=== PATIENT | male | born 1965 | race Hispanic/Latino ===

== ENCOUNTER 2020-07-27 22:29 | Inpatient (IN) | payer OTHER ==
[~2020-07-27] VITALS: Ht 182.9 cm; Wt 112.2 kg
[2020-07-27] MEDS ORDERED: ONDANSETRON HCL 4 MG/2 ML VIAL ONE (22:52)
[2020-07-27 23:07] LABS: BASOPHILS % (AUTO) 0.3 % (0.0-5.0); EOSINOPHILS % (AUTO) 0.2 % (0.0-8.0); HEMATOCRIT 45.3 % (42-54); LYMPHOCYTES % (AUTO) 11.4 % (21.0-51.0); MEAN CORPUSCULAR HEMOGLOBIN 30.9 pg (27.0-33.0); MEAN CORPUSCULAR HGB CONC 35.3 g/dL (32.0-36.0); MEAN CORPUSCULAR VOLUME 87.6 fL (79-99); MONOCYTES % (AUTO) 10.6 % (3.0-13.0); NEUTROPHILS % (AUTO) 77.2 % (40.0-77.0); PLATELET COUNT (AUTO) 335 K/uL (130-400); RED BLOOD CELL COUNT(AUTO) 5.17 MIL/uL (4.50-6.20); RED CELL DISTRIBUTION WIDTH 12.1 % (11.0-15.5); WHITE BLOOD COUNT (AUTO) 17.4 K/uL (4.8-10.8)
[2020-07-27 23:12] LABS: APPEARANCE,URINE Clear (CLEAR); BILIRUBIN,URINE Negative (NEGATIVE); COLOR,URINE Yellow (YELLOW); GLUCOSE, URINE (UA) >=1000 mg/dL (NEGATIVE); KETONES,URINE Negative (NEGATIVE); LEUKOCYTE ESTERASE ,URINE Negative (NEGATIVE); NITRATE,URINE Negative (NEGATIVE); OCCULT BLOOD,URINE Negative (NEGATIVE); PH,URINE 6.5 (5.0-8.0); PROTEIN,URINE POS 1+ mg/dL (NEGATIVE)
[2020-07-27 23:18] LABS: BACTERIA,URINE None Seen /HPF (None Seen); RBC,URINE None Seen /HPF (0-1); SQUAMOUS EPITHELIAL CELL,UR Rare /HPF (0-2); WBC,URINE None Seen /HPF (0-1); YEAST,URINE BUDDING None Seen /HPF (None Seen)
[2020-07-27 23:21] LABS: CREATININE 0.8 mg/dL (0.5-1.5); POTASSIUM 4.1 mmol/L (3.5-5.1)
[2020-07-27 23:25] LABS: ALBUMIN 3.7 g/dL (3.5-5.0); BILIRUBIN,TOTAL 1.5 mg/dL (0.2-1.0); TOTAL PROTEIN, SERUM 7.8 g/dL (6.0-8.3)
[2020-07-27] MEDS ORDERED: FENTANYL CITRATE PF 50 MCG/1 ML 2ML VIAL ONE (23:27)
[2020-07-28] MEDS ORDERED: LEVETIRACETAM 500 MG/5 ML SD VIAL IV ONE (02:11)
[2020-07-28] MEDS ORDERED: LACTULOSE 20 GM/30 ML UDCUP PO PRN (02:30)
[2020-07-28] MEDS ORDERED: ONDANSETRON HCL 4 MG/2 ML VIAL IV PRN (02:30)
[2020-07-28] MEDS ORDERED: ACETAMINOPHEN 325 MG TAB PO PRN (02:30)
[2020-07-28] MEDS ORDERED: HYDRALAZINE HCL 20 MG/ML VIAL IV PRN (02:30)
[2020-07-28] MEDS ORDERED: ACETAMINOPHEN 325 MG TAB ONE (02:42)
[2020-07-28 03:05] LABS: HEMOGLOBIN A1C 7.9 % (4.0-6.0)
[2020-07-28 03:13] LABS: THYROID STIMULATING HORMONE 1.43 uIU/mL (0.36-3.74)
[2020-07-28 07:39] LABS: BASOPHILS % (AUTO) 0.3 % (0.0-5.0); EOSINOPHILS % (AUTO) 0.3 % (0.0-8.0); HEMATOCRIT 43.5 % (42-54); MEAN CORPUSCULAR HEMOGLOBIN 30.5 pg (27.0-33.0); MEAN CORPUSCULAR VOLUME 89.7 fL (79-99); MONOCYTES % (AUTO) 11.1 % (3.0-13.0); NEUTROPHILS % (AUTO) 74.8 % (40.0-77.0); PLATELET COUNT (AUTO) 287 K/uL (130-400); RED BLOOD CELL COUNT(AUTO) 4.85 MIL/uL (4.50-6.20); RED CELL DISTRIBUTION WIDTH 12.4 % (11.0-15.5); WHITE BLOOD COUNT (AUTO) 14.7 K/uL (4.8-10.8)
[2020-07-28 08:15] LABS: ALBUMIN 3.3 g/dL (3.5-5.0); BILIRUBIN,TOTAL 1.8 mg/dL (0.2-1.0); CREATININE 0.8 mg/dL (0.5-1.5); POTASSIUM 4.2 mmol/L (3.5-5.1); TOTAL PROTEIN, SERUM 6.5 g/dL (6.0-8.3)
[2020-07-28 08:33] VITALS: BP 147/89
[2020-07-28] MEDS ORDERED: ENOXAPARIN SODIUM 40 MG/0.4 ML SYRINGE SQ SCH (09:00)
[2020-07-28] MEDS: METOPROLOL TARTRATE 25 MG TAB PO SCH ×2 (11:02→20:27)
[2020-07-28] MEDS: ASPIRIN 81MG TAB.CHEW PO SCH (11:03)
[2020-07-28] MEDS: FAMOTIDINE/PF 20 MG/2 ML VIAL IV SCH ×2 (11:03→20:26)
[2020-07-28 11:38] VITALS: BP 142/84
[2020-07-28] MEDS: INSULIN HUMULIN R 100 UNIT/ML 3ML SQ SCH ×3 (12:00→20:37)
[2020-07-28 12:47] LABS: AMPHET/METH SCREEN,URINE NEGATIVE (NEGATIVE); BARBITURATE SCREEN, URINE NEGATIVE (NEGATIVE); BENZODIAZEPINES SCREEN,URINE NEGATIVE (NEGATIVE); CANNABINOID SCREEN,URINE NEGATIVE (NEGATIVE); COCAINE SCREEN,URINE NEGATIVE (NEGATIVE); OPIATE SCREEN,URINE NEGATIVE (NEGATIVE); PHENCYCLIDINE SCREEN,URINE NEGATIVE (NEGATIVE)
[2020-07-28] MEDS ORDERED: METRONIDAZOLE 500MG/100ML BAG 100 ML ONE (12:50)
[2020-07-28] MEDS: LEVOFLOXACIN 500 MG/D5W 100 ML 100 ML IV SCH (12:52)
[2020-07-28] MEDS: METRONIDAZOLE 500MG/100ML BAG 100 ML IVPB SCH ×2 (12:52→22:14)
[2020-07-28] MEDS ORDERED: VITAD50000 PO (14:37)
[2020-07-28] MEDS ORDERED: METF-444 PO (14:37)
[2020-07-28] MEDS ORDERED: AEC81 PO (14:37)
[2020-07-28] MEDS ORDERED: ROSU10TA28 PO (14:37)
[2020-07-28] MEDS ORDERED: LISI10TA7 PO (14:37)
[2020-07-28] MEDS ORDERED: INSU3INS3 SQ (14:37)
[2020-07-28] MEDS ORDERED: UBID100C10 PO (14:37)
[2020-07-28 16:00] VITALS: BP 129/81
[2020-07-28 20:00] VITALS: BP 131/82
[2020-07-28] MEDS: ATORVASTATIN CALCIUM 20 MG TABLET PO SCH (20:26)
[2020-07-28] MEDS: HEPARIN SODIUM 5000UNIT/ML 1ML VIAL SQ SCH (20:31)
[2020-07-28] MEDS: ACETAMINOPHEN 325 MG TAB PO PRN (20:33)
[2020-07-28] MEDS: SODIUM CHLORIDE 0.9% 1000ML 1,000 ML IV SCH (22:15)
[2020-07-28 23:54] VITALS: BP 122/72
[2020-07-29] VITALS (7 sets, daily range): BP systolic 112–137; BP diastolic 75–85
[2020-07-29] MEDS: LEVOFLOXACIN 500 MG/D5W 100 ML 100 ML IV SCH (02:11)
[2020-07-29] MEDS: METRONIDAZOLE 500MG/100ML BAG 100 ML IVPB SCH ×3 (05:29→21:40)
[2020-07-29 05:59] LABS: BASOPHILS % (AUTO) 0.6 % (0.0-5.0); EOSINOPHILS % (AUTO) 1.8 % (0.0-8.0); HEMATOCRIT 43.2 % (42-54); LYMPHOCYTES % (AUTO) 16.1 % (21.0-51.0); MEAN CORPUSCULAR HEMOGLOBIN 30.7 pg (27.0-33.0); MEAN CORPUSCULAR HGB CONC 33.8 g/dL (32.0-36.0); MEAN CORPUSCULAR VOLUME 90.8 fL (79-99); MONOCYTES % (AUTO) 10.9 % (3.0-13.0); PLATELET COUNT (AUTO) 289 K/uL (130-400); RED BLOOD CELL COUNT(AUTO) 4.76 MIL/uL (4.50-6.20); WHITE BLOOD COUNT (AUTO) 10.9 K/uL (4.8-10.8)
[2020-07-29 06:17] LABS: CREATININE 0.9 mg/dL (0.5-1.5)
[2020-07-29] MEDS: INSULIN HUMULIN R 100 UNIT/ML 3ML SQ SCH ×4 (06:28→20:54)
--- NOTE | 2020-07-29 09:01 | NUR ---
6 MINUTE AMBULATION GAIT STEADY AND STRONG WITH STAND BY ASSIST, PT DENIES PAIN, SOB, NAUSEA, DYSPNEA ON EXERTION, TOLERATING WELL, (SEE VITAL SIGNS) CALL LIGHT WITHIN REACH.
[2020-07-29 09:19] LABS: ALBUMIN 2.8 g/dL (3.5-5.0); BILIRUBIN,DIRECT 0.4 mg/dL (0.0-0.3); BILIRUBIN,TOTAL 1.3 mg/dL (0.2-1.0); TOTAL PROTEIN, SERUM 6.8 g/dL (6.0-8.3); TROPONIN I 0.07 ng/mL (0.00-0.06)
[2020-07-29] MEDS: METOPROLOL TARTRATE 25 MG TAB PO SCH ×2 (09:37→20:41)
[2020-07-29] MEDS: FAMOTIDINE/PF 20 MG/2 ML VIAL IV SCH ×2 (09:37→20:41)
[2020-07-29] MEDS: ASPIRIN 81MG TAB.CHEW PO SCH (09:37)
[2020-07-29] MEDS: HEPARIN SODIUM 5000UNIT/ML 1ML VIAL SQ SCH ×2 (09:57→20:41)
[2020-07-29] MEDS: SODIUM CHLORIDE 0.9% 1000ML 1,000 ML IV SCH ×2 (12:46→20:42)
[2020-07-29] MEDS: ATORVASTATIN CALCIUM 20 MG TABLET PO SCH (20:41)
[2020-07-29] MEDS: ACETAMINOPHEN 325 MG TAB PO PRN (21:51)
[2020-07-30] VITALS (24 sets, daily range): BP systolic 127–163; BP diastolic 74–91
[2020-07-30] MEDS: LEVOFLOXACIN 500 MG/D5W 100 ML 100 ML IV SCH (02:51)
[2020-07-30] MEDS: SODIUM CHLORIDE 0.9% 1000ML 1,000 ML IV SCH ×2 (03:36→11:14)
[2020-07-30] MEDS: METRONIDAZOLE 500MG/100ML BAG 100 ML IVPB SCH ×3 (05:21→21:44)
[2020-07-30] MEDS: INSULIN HUMULIN R 100 UNIT/ML 3ML SQ SCH ×4 (07:01→21:53)
[2020-07-30] MEDS: HEPARIN SODIUM 5000UNIT/ML 1ML VIAL SQ SCH ×2 (07:46→21:53)
[2020-07-30] MEDS: METOPROLOL TARTRATE 25 MG TAB PO SCH ×2 (10:44→20:49)
[2020-07-30] MEDS: FAMOTIDINE/PF 20 MG/2 ML VIAL IV SCH ×2 (10:44→20:49)
[2020-07-30] MEDS ORDERED: ONDANSETRON HCL 4 MG/2 ML VIAL ONE ×3 (11:25→13:09)
[2020-07-30] MEDS ORDERED: PROPOFOL 10 MG/ML 20ML VIAL IV ONE ×2 (11:25→11:55)
[2020-07-30] MEDS ORDERED: LIDOCAINE PF 2% 5ML ABBOJECT ONE (11:25)
[2020-07-30] MEDS ORDERED: ROCURONIUM 10MG/1ML SYR 10 MG/ML ML ONE (11:25)
[2020-07-30] MEDS ORDERED: SUCCINYLCHOLINE CHLORIDE 20 MG/ML 10 ML VIAL ONE (11:25)
[2020-07-30] MEDS ORDERED: MIDAZOLAM HCL 1 MG/ML 2ML VIAL ONE (11:25)
[2020-07-30] MEDS ORDERED: FENTANYL CITRATE PF 50 MCG/1 ML 5ML AMP IV ONE (11:41)
[2020-07-30] MEDS ORDERED: BUPIVACAINE/PF 0.5% 30ML VIAL ONE (11:52)
[2020-07-30] MEDS ORDERED: GLYCOPYRROLATE 1 MG/5 ML SYRINGE ONE (12:08)
[2020-07-30] MEDS ORDERED: NEOSTIGMINE 5MG/5ML SYR IV ONE (12:08)
[2020-07-30] MEDS ORDERED: MEPERIDINE-PF 25 MG/ML SYG ONE ×2 (12:38→12:48)
[2020-07-30] MEDS: ASPIRIN 81MG TAB.CHEW PO SCH (13:54)
[2020-07-30] MEDS: ACETAMINOPHEN 325 MG TAB PO PRN ×2 (13:59→21:44)
[2020-07-30] MEDS: MORPHINE SULFATE 2 MG/ML 1ML SYG IV PRN (14:00)
[2020-07-30] MEDS: ATORVASTATIN CALCIUM 20 MG TABLET PO SCH (20:49)
[2020-07-31] MEDS: SODIUM CHLORIDE 0.9% 1000ML 1,000 ML IV SCH ×2 (00:30→10:30)
--- NOTE | 2020-07-31 02:56 | NUR ---
PATIENT A/OX3. C/O MILD PAIN TO LAP SITES. PATIENT SAYS HE IS PASSING GAS, NO BM. BOWEL SOUNDS HYPOACTIVE. TOLERATING CLEARS. DENIES N/V/D TODAY. WILL ADVANCE DIET TOLERATED.
[2020-07-31] MEDS: LEVOFLOXACIN 500 MG/D5W 100 ML 100 ML IV SCH (03:19)
[2020-07-31 03:51] VITALS: BP 126/72
[2020-07-31] MEDS: ACETAMINOPHEN 325 MG TAB PO PRN (04:13)
[2020-07-31 05:32] LABS: BASOPHILS % (AUTO) 0.2 % (0.0-5.0); EOSINOPHILS % (AUTO) 0.3 % (0.0-8.0); LYMPHOCYTES % (AUTO) 9.3 % (21.0-51.0); MEAN CORPUSCULAR HEMOGLOBIN 30.3 pg (27.0-33.0); MEAN CORPUSCULAR HGB CONC 33.9 g/dL (32.0-36.0); MEAN CORPUSCULAR VOLUME 89.5 fL (79-99); MONOCYTES % (AUTO) 6.9 % (3.0-13.0); NEUTROPHILS % (AUTO) 82.8 % (40.0-77.0); PLATELET COUNT (AUTO) 329 K/uL (130-400); RED BLOOD CELL COUNT(AUTO) 4.58 MIL/uL (4.50-6.20); RED CELL DISTRIBUTION WIDTH 11.9 % (11.0-15.5); WHITE BLOOD COUNT (AUTO) 12.8 K/uL (4.8-10.8)
[2020-07-31 06:07] LABS: ALBUMIN 2.7 g/dL (3.5-5.0); CREATININE 0.9 mg/dL (0.5-1.5); POTASSIUM 3.8 mmol/L (3.5-5.1); TOTAL PROTEIN, SERUM 6.6 g/dL (6.0-8.3)
[2020-07-31] MEDS: INSULIN HUMULIN R 100 UNIT/ML 3ML SQ SCH ×3 (06:10→16:08)
[2020-07-31] MEDS: METRONIDAZOLE 500MG/100ML BAG 100 ML IVPB SCH ×2 (06:23→13:26)
[2020-07-31] MEDS: FAMOTIDINE/PF 20 MG/2 ML VIAL IV SCH (07:34)
[2020-07-31] MEDS: ASPIRIN 81MG TAB.CHEW PO SCH (07:34)
[2020-07-31] MEDS: METOPROLOL TARTRATE 25 MG TAB PO SCH (07:34)
[2020-07-31] MEDS: HEPARIN SODIUM 5000UNIT/ML 1ML VIAL SQ SCH (07:36)
--- NOTE | 2020-07-31 08:00 | NUR ---
ASSESSMENT PT IS AAOX3 DENIES CP DENIES SOB DENIES NV. NO COMPLAINTS AT THIS TIME. SITTING UPRIGHT IN BED. STATES PASSING GAS, NO BM YET. NOTED LAP ALEJA SITES X4 ON ABD, ALL COVERED WITH BANDAIDS, ALL SITES CLEAN DRY AND INTACT CALL LIGHT WITHIN REACH.
[2020-07-31 08:30] VITALS: BP 136/79
[2020-07-31] MEDS ORDERED: LEVO750T46 PO (10:51)
[2020-07-31] MEDS ORDERED: METR-172 PO (10:51)
[2020-07-31 12:10] VITALS: BP 143/77
--- NOTE | 2020-07-31 16:00 | NUR ---
Brennon ALICIA PA-C ROUNDED OK TO DC HOME TODAY, RENEA RICHARDS AWARE, DC ORDERS RECEIVED.
[2020-07-31] MEDS: MORPHINE SULFATE 2 MG/ML 1ML SYG IV PRN (16:06)
[2020-07-31 16:30] VITALS: BP 145/85
--- NOTE | 2020-07-31 17:40 | NUR ---
DISCHARGE PT VERBALIZES ALL DC INSTRUCTIONS UNDERSTANDING. AGREES TO FOLLOW UP WITH DOCTORS ORDERED, AGREES TO TAKE MEDICATIONS PRESCRIBED. ALL QUESTIONS ANSWERED. PIV REMOVED CATH TIP INTACT, TELE PACK REMOVED. ALL BELONGINGS GATHERED. AWAITING RIDE.
--- NOTE | 2020-08-01 16:36 | NUR ---
Transitional Care - Post Discharge Note Spoke with patient at number listed. As per Mr Aleman, he is doing well. He states he has yet to follow up with his PCP or make appointments because he was "just trying to recover today before making any phone calls". He has assured me that he will call tomorrow to make appointments with PCP and Dr Almanza. Mr Aleman states that he is taking his discharge medications as prescribed. Nursing education on diet post cholecystectomy provided, as well as medication compliance. He affirms that he will "stick to low fat foods and keep taking the medications as ordered." Addendum: 08/01/20 at 1643 by JUANA PACHECO Amended: Links added.
== END 2020-07-31 17:55 | disposition home or self-care (01) | DRG 418 ==
LOC: EDH 22:29 → EDHIP 07-28 02:26 → 4DH 07-28 07:59
PROVIDERS: ADMIT Family Medicine; ATTEND Family Medicine
PROC: 0FT44ZZ Resection of Gallbladder, Percutaneous Endoscopic Approach (ICD-10-PCS; principal; 2020-07-30 11:27)
DX: K80.00 Calculus of gallbladder with acute cholecystitis without obstruction (principal); I24.9 Acute ischemic heart disease, unspecified; E11.9 Type 2 diabetes mellitus without complications; E78.5 Hyperlipidemia, unspecified; I10 Essential (primary) hypertension; K82.8 Other specified diseases of gallbladder; R74.8 Abnormal levels of other serum enzymes; R77.8 Other specified abnormalities of plasma proteins; R94.31 Abnormal electrocardiogram [ECG] [EKG]; Z88.0 Allergy status to penicillin
CPT/HCPCS: 36415; 74176; 74181; 76705; 80048; 80053; 80061; 80076; 80305; 81001; 82550; 82948; 83036; 83690; 83874; 84443; 84484; 85025; 93005; 93306; G0378; J0330; J1644; J1815; J1953; J1956; J2001; J2175; J2250; J2405; J2704; J2710; J3010; J3490; J7030

== ENCOUNTER 2020-08-15 18:29 | Inpatient (IN) | payer OTHER ==
[~2020-08-15] VITALS: Ht 182.9 cm; Wt 118.2 kg
[~2020-08-15 18:29] MED LIST: AEC81 PO; INSU3INS3 SQ; LEVO750T46 PO; LISI10TA24 PO; METF-444 PO; METR-172 PO; ROSU10TA28 PO; UBID100C10 PO; VITAD50000 PO
[2020-08-15] MEDS ORDERED: MORPHINE 2 MG SYG ONE (20:09)
[2020-08-15] MEDS ORDERED: 0.9%NACL 1000ML 1,000 ML IV ONE (20:09)
[2020-08-15] MEDS ORDERED: ONDANSETRON 4MG INJ ONE (20:09)
[2020-08-15] MEDS ORDERED: ACETAMINOPHEN 325 MG TAB PO PRN ×2 (20:15)
[2020-08-15] MEDS ORDERED: LACTULOSE 20 GM/30 ML UDCUP PO PRN (20:15)
[2020-08-15 20:20] VITALS: BP 166/89
[2020-08-15 20:54] LABS: BASOPHILS % (AUTO) 0.1 % (0.0-5.0); HEMATOCRIT 47.7 % (42-54); LYMPHOCYTES % (AUTO) 3.3 % (21.0-51.0); MEAN CORPUSCULAR HEMOGLOBIN 30.3 pg (27.0-33.0); MEAN CORPUSCULAR HGB CONC 33.8 g/dL (32.0-36.0); MEAN CORPUSCULAR VOLUME 89.8 fL (79-99); MONOCYTES % (AUTO) 5.4 % (3.0-13.0); NEUTROPHILS % (AUTO) 90.6 % (40.0-77.0); PLATELET COUNT (AUTO) 615 K/uL (130-400); RED BLOOD CELL COUNT(AUTO) 5.31 MIL/uL (4.50-6.20); RED CELL DISTRIBUTION WIDTH 12.3 % (11.0-15.5); WHITE BLOOD COUNT (AUTO) 19.1 K/uL (4.8-10.8)
[2020-08-15 21:11] LABS: CREATININE 1.2 mg/dL (0.5-1.5); POTASSIUM 4.5 mmol/L (3.5-5.1)
[2020-08-15 21:12] LABS: INR 0.99 (0.85-1.15); PARTIAL THROMBOPLASTIN TIME 25.2 SEC (26.3-35.5); PROTHROMBIN TIME 10.7 SEC (9.6-11.6)
[2020-08-15 21:20] LABS: ALBUMIN 3.3 g/dL (3.5-5.0); BILIRUBIN,TOTAL 2.2 mg/dL (0.2-1.0); TOTAL PROTEIN, SERUM 7.4 g/dL (6.0-8.3)
[2020-08-15] MEDS ORDERED: GLUCAGON 1MG KIT 1 MG ML IM PRN (22:15)
[2020-08-15] MEDS ORDERED: DEXTROSE 50%-WATER 50 ML DISP.SYRIN IV PRN (22:15)
[2020-08-15] MEDS: LEVOFLOXACIN 500 MG/D5W 100 ML 100 ML IV SCH (22:15)
[2020-08-15] MEDS: FAMOTIDINE 20MG VIAL IV SCH (22:20)
[2020-08-15] MEDS: 0.9%NACL 1000ML 1,000 ML IV SCH ×2 (22:20→23:46)
[2020-08-15] MEDS ORDERED: 0.9%NACL 1000ML 1,000 ML IV STA ×2 (22:26→23:00)
[2020-08-15] MEDS ORDERED: LEVOFLOXACIN 500 MG/D5W 100 ML 100 ML ONE (22:32)
[2020-08-15 23:25] VITALS: BP 153/86
[2020-08-16] MEDS: MORPHINE 2 MG SYG IV PRN ×4 (00:05→22:26)
[2020-08-16] MEDS: INSULIN HUMULIN R 100 UNIT/ML 3ML SQ SCH ×4 (01:59→17:03)
[2020-08-16 03:59] VITALS: BP 167/92
[2020-08-16] MEDS ORDERED: HYDROMORPHONE 0.5 MG SYG (0.5MG/0.5ML) IVP ONE (04:15)
[2020-08-16 04:45] LABS: BASOPHILS % (AUTO) 0.2 % (0.0-5.0); EOSINOPHILS % (AUTO) 0.3 % (0.0-8.0); HEMATOCRIT 48.5 % (42-54); LYMPHOCYTES % (AUTO) 4.4 % (21.0-51.0); MEAN CORPUSCULAR HEMOGLOBIN 29.9 pg (27.0-33.0); MEAN CORPUSCULAR HGB CONC 33.4 g/dL (32.0-36.0); MEAN CORPUSCULAR VOLUME 89.5 fL (79-99); MONOCYTES % (AUTO) 6.5 % (3.0-13.0); NEUTROPHILS % (AUTO) 88.2 % (40.0-77.0); PLATELET COUNT (AUTO) 615 K/uL (130-400); RED BLOOD CELL COUNT(AUTO) 5.42 MIL/uL (4.50-6.20); RED CELL DISTRIBUTION WIDTH 12.5 % (11.0-15.5); WHITE BLOOD COUNT (AUTO) 20.5 K/uL (4.8-10.8)
[2020-08-16 04:59] LABS: POTASSIUM 4.7 mmol/L (3.5-5.1)
[2020-08-16] MEDS ORDERED: VANCOMYCIN PROTOCOL PER PHARMACY IV SCH (05:15)
[2020-08-16] MEDS ORDERED: HYDROMORPHONE 0.5 MG SYG (0.5MG/0.5ML) ONE (05:18)
[2020-08-16] MEDS: ONDANSETRON 4MG INJ IV PRN ×2 (05:22→22:21)
[2020-08-16] MEDS ORDERED: VANCOMYCIN 1G 2 GM in 0.9% NACL 500ML IV.SOLN 500 ML IV SCH (06:30)
[2020-08-16] MEDS ORDERED: VANCOMYCIN 1G/250ML KIT 500 ML IV ONE (06:53)
[2020-08-16 08:00] VITALS: BP 151/94
[2020-08-16] MEDS: ENOXAPARIN SODIUM 40 MG/0.4 ML SYRINGE SQ SCH (08:26)
[2020-08-16] MEDS: METRONIDAZOLE 500MG/100ML BAG 100 ML IVPB SCH ×3 (08:26→21:37)
[2020-08-16] MEDS: FAMOTIDINE 20MG VIAL IV SCH ×2 (08:26→21:37)
[2020-08-16] MEDS: 0.9%NACL 1000ML 1,000 ML IV SCH (10:44)
[2020-08-16 11:50] VITALS: BP 154/95
[2020-08-16] MEDS: LACTATED RINGERS 1000ML 1,000 ML IV SCH (12:27)
[2020-08-16] MEDS ORDERED: COMPOUND IV MISC 1 EACH IVSOLN MISC PRN (12:30)
[2020-08-16] MEDS: AZTREONAM 1 GM VIAL IVP SCH ×2 (14:39→21:37)
[2020-08-16] MEDS ORDERED: IOHEXOL 350 MG/ML 100ML INFUS..BTL IV ONE (16:50)
[2020-08-16 16:54] VITALS: BP 133/91
[2020-08-16] MEDS ORDERED: COMPOUND IV REFRIGERATED 1 EACH MISC ONE (18:09)
[2020-08-16] MEDS: VANCOMYCIN 1G 1.5 GM in 0.9% NACL 250ML 250 ML IV SCH (18:11)
[2020-08-16 20:00] VITALS: BP 139/89
[2020-08-16] MEDS ORDERED: INSULIN GLARGINE 100 UNITS/ML 10 ML VIAL SQ SCH (21:00)
[2020-08-16] MEDS: LEVOFLOXACIN 500 MG/D5W 100 ML 100 ML IV SCH (23:21)
[2020-08-17] VITALS (21 sets, daily range): BP systolic 117–138; BP diastolic 61–92
[2020-08-17] MEDS: INSULIN HUMULIN R 100 UNIT/ML 3ML SQ SCH ×4 (00:03→18:00)
[2020-08-17] MEDS ORDERED: LORAZEPAM 2 MG/ML 1 ML VIAL ONE (00:50)
[2020-08-17] MEDS ORDERED: LORAZEPAM 2 MG/ML 1 ML VIAL IVP ONE (01:00)
[2020-08-17 04:41] LABS: BASOPHILS % (AUTO) 0.3 % (0.0-5.0); EOSINOPHILS % (AUTO) 1.2 % (0.0-8.0); HEMATOCRIT 46.6 % (42-54); LYMPHOCYTES % (AUTO) 4.3 % (21.0-51.0); MEAN CORPUSCULAR HEMOGLOBIN 30.1 pg (27.0-33.0); MEAN CORPUSCULAR HGB CONC 33.7 g/dL (32.0-36.0); MEAN CORPUSCULAR VOLUME 89.3 fL (79-99); MONOCYTES % (AUTO) 5.5 % (3.0-13.0); NEUTROPHILS % (AUTO) 87.7 % (40.0-77.0); PLATELET COUNT (AUTO) 524 K/uL (130-400); RED BLOOD CELL COUNT(AUTO) 5.22 MIL/uL (4.50-6.20); RED CELL DISTRIBUTION WIDTH 13.2 % (11.0-15.5); WHITE BLOOD COUNT (AUTO) 23.3 K/uL (4.8-10.8)
[2020-08-17] MEDS: LACTATED RINGERS 1000ML 1,000 ML IV SCH ×5 (04:47→22:46)
[2020-08-17 05:05] LABS: ALBUMIN 2.4 g/dL (3.5-5.0); CREATININE 0.9 mg/dL (0.5-1.5); POTASSIUM 3.5 mmol/L (3.5-5.1); TOTAL PROTEIN, SERUM 6.4 g/dL (6.0-8.3)
[2020-08-17] MEDS: AZTREONAM 1 GM VIAL IVP SCH ×3 (05:47→22:08)
[2020-08-17] MEDS: VANCOMYCIN 1G 1.5 GM in 0.9% NACL 250ML 250 ML IV SCH ×2 (05:47→18:00)
[2020-08-17] MEDS: ONDANSETRON 4MG INJ IV PRN ×2 (06:07→19:51)
[2020-08-17] MEDS: MORPHINE 2 MG SYG IV PRN ×2 (06:09→19:52)
[2020-08-17] MEDS: ENOXAPARIN SODIUM 40 MG/0.4 ML SYRINGE SQ SCH (09:00)
[2020-08-17] MEDS: FAMOTIDINE 20MG VIAL IV SCH ×2 (10:43→19:51)
[2020-08-17] MEDS: INSULIN GLARGINE 100 UNITS/ML 10 ML VIAL SQ SCH ×2 (10:44→22:14)
[2020-08-17] MEDS ORDERED: FENTANYL CITRATE PF 50 MCG/1 ML 2ML VIAL ONE (12:16)
[2020-08-17] MEDS ORDERED: PROPOFOL 10 MG/ML 20ML VIAL IV ONE ×2 (12:16)
[2020-08-17] MEDS ORDERED: LIDOCAINE HCL-MPF 2% 5ML VIAL ONE (12:18)
[2020-08-17] MEDS ORDERED: SUCCINYLCHOLINE 200MG/10ML SYR ONE (12:20)
[2020-08-17 17:44] LABS: CHOLESTEROL 139 mg/dL (<200); HDL CHOLESTEROL 102 mg/dL (29-71); LDL DIRECT 72 mg/dL (0-99); TRIGLYCERIDES 97 mg/dL (30-200)
[2020-08-17] MEDS: LEVOFLOXACIN 500 MG/D5W 100 ML 100 ML IV SCH (22:07)
[2020-08-18] VITALS (7 sets, daily range): BP systolic 117–156; BP diastolic 81–97
[2020-08-18] MEDS: INSULIN HUMULIN R 100 UNIT/ML 3ML SQ SCH ×5 (00:07→23:07)
[2020-08-18] MEDS: MORPHINE 2 MG SYG IV PRN ×4 (01:54→22:10)
[2020-08-18] MEDS: POTASSIUM CHLORIDE 20MEQ/100ML 100 ML IV PRN (01:58)
[2020-08-18] MEDS: LIDOCAINE HCL-MPF 1% 2ML VIAL IV PRN (01:58)
[2020-08-18] MEDS ORDERED: VANCOMYCIN 1G/250ML KIT 0 ML IV ONE (05:23)
[2020-08-18] MEDS: VANCOMYCIN 1G 1.5 GM in 0.9% NACL 250ML 250 ML IV SCH ×2 (05:26→18:10)
[2020-08-18] MEDS: AZTREONAM 1 GM VIAL IVP SCH ×3 (05:26→20:08)
[2020-08-18] MEDS: LACTATED RINGERS 1000ML 1,000 ML IV SCH ×5 (05:26→23:07)
[2020-08-18 06:56] LABS: HEMATOCRIT 43.1 % (42-54); MEAN CORPUSCULAR HEMOGLOBIN 30.2 pg (27.0-33.0); MEAN CORPUSCULAR HGB CONC 33.6 g/dL (32.0-36.0); MEAN CORPUSCULAR VOLUME 89.8 fL (79-99); PLATELET COUNT (AUTO) 337 K/uL (130-400); RED CELL DISTRIBUTION WIDTH 13.3 % (11.0-15.5); WHITE BLOOD COUNT (AUTO) 15.8 K/uL (4.8-10.8)
[2020-08-18 08:12] LABS: BAND NEUTROPHILS % (MANUAL) 18 % (0-2); LYMPHOCYTES % (MANUAL) 8 % (22-44); MAN.DIFF COMMENT-IMPRESSION MANUAL DIFFERENTIAL; MONOCYTES % (MANUAL) 6 % (2-9); PLATELET MORPHOLOGY COMMENT ADEQUATE; SEGMENTED NEUTROPHILS % 68 % (40-70)
[2020-08-18 08:29] LABS: ALBUMIN 1.9 g/dL (3.5-5.0); CREATININE 0.7 mg/dL (0.5-1.5); POTASSIUM 3.5 mmol/L (3.5-5.1); TOTAL PROTEIN, SERUM 6.2 g/dL (6.0-8.3)
[2020-08-18] MEDS: FAMOTIDINE 20MG VIAL IV SCH ×2 (08:57→20:08)
[2020-08-18] MEDS: INSULIN GLARGINE 100 UNITS/ML 10 ML VIAL SQ SCH ×2 (08:59→20:19)
[2020-08-18] MEDS: ENOXAPARIN SODIUM 40 MG/0.4 ML SYRINGE SQ SCH (09:00)
[2020-08-18] MEDS: TRAZODONE HCL 50 MG TAB PO PRN (20:08)
[2020-08-18] MEDS: ATORVASTATIN 20 MG TABLET PO SCH (20:08)
[2020-08-18] MEDS: LEVOFLOXACIN 500 MG/D5W 100 ML 100 ML IV SCH (20:08)
[2020-08-19] MEDS: VANCOMYCIN 1G 1.25 GM in 0.9% NACL 250ML 250 ML IV SCH ×3 (01:56→18:00)
[2020-08-19 03:40] VITALS: BP 148/85
[2020-08-19] MEDS: INSULIN HUMULIN R 100 UNIT/ML 3ML SQ SCH ×4 (04:21→22:09)
[2020-08-19] MEDS: AZTREONAM 1 GM VIAL IVP SCH ×3 (04:41→20:11)
[2020-08-19] MEDS: LACTATED RINGERS 1000ML 1,000 ML IV SCH ×4 (04:41→20:11)
[2020-08-19 05:32] LABS: BASOPHILS % (AUTO) 0.7 % (0.0-5.0); EOSINOPHILS % (AUTO) 0.4 % (0.0-8.0); HEMATOCRIT 38.5 % (42-54); LYMPHOCYTES % (AUTO) 6.7 % (21.0-51.0); MEAN CORPUSCULAR HEMOGLOBIN 30.4 pg (27.0-33.0); MEAN CORPUSCULAR HGB CONC 34.3 g/dL (32.0-36.0); MEAN CORPUSCULAR VOLUME 88.7 fL (79-99); MONOCYTES % (AUTO) 7.8 % (3.0-13.0); NEUTROPHILS % (AUTO) 83.2 % (40.0-77.0); PLATELET COUNT (AUTO) 298 K/uL (130-400); RED BLOOD CELL COUNT(AUTO) 4.34 MIL/uL (4.50-6.20); RED CELL DISTRIBUTION WIDTH 13.2 % (11.0-15.5); WHITE BLOOD COUNT (AUTO) 13.8 K/uL (4.8-10.8)
[2020-08-19 05:59] LABS: ALBUMIN 1.7 g/dL (3.5-5.0); BILIRUBIN,TOTAL 0.8 mg/dL (0.2-1.0); CREATININE 0.6 mg/dL (0.5-1.5); POTASSIUM 3.1 mmol/L (3.5-5.1); TOTAL PROTEIN, SERUM 5.7 g/dL (6.0-8.3)
[2020-08-19] MEDS: POTASSIUM CHLORIDE 20MEQ/100ML 100 ML IV PRN ×2 (06:10→18:06)
[2020-08-19 08:00] VITALS: BP 148/86
[2020-08-19] MEDS ORDERED: POTASSIUM CHLORIDE 20MEQ/100ML 100 ML IV PRN (08:00)
[2020-08-19] MEDS: FAMOTIDINE 20MG VIAL IV SCH ×2 (08:33→20:11)
[2020-08-19] MEDS: INSULIN GLARGINE 100 UNITS/ML 10 ML VIAL SQ SCH ×2 (08:34→20:12)
[2020-08-19] MEDS: ASPIRIN 81 MG EC TAB PO SCH (08:41)
[2020-08-19] MEDS: ENOXAPARIN SODIUM 40 MG/0.4 ML SYRINGE SQ SCH (08:42)
[2020-08-19] MEDS: LISINOPRIL 10 MG TABLET PO SCH (08:42)
[2020-08-19 12:00] VITALS: BP 142/92
[2020-08-19 16:00] VITALS: BP 147/90
[2020-08-19] MEDS: LIDOCAINE HCL-MPF 1% 2ML VIAL IV PRN (18:06)
[2020-08-19 20:08] VITALS: BP 142/88
[2020-08-19] MEDS: LEVOFLOXACIN 500 MG/D5W 100 ML 100 ML IV SCH (20:11)
[2020-08-19] MEDS: ATORVASTATIN 20 MG TABLET PO SCH (20:11)
[2020-08-19] MEDS: TRAZODONE HCL 50 MG TAB PO PRN (23:33)
[2020-08-20 00:56] VITALS: BP 139/85
[2020-08-20] MEDS: LACTATED RINGERS 1000ML 1,000 ML IV SCH ×5 (01:00→20:36)
[2020-08-20] MEDS: VANCOMYCIN 1G 1.25 GM in 0.9% NACL 250ML 250 ML IV SCH ×2 (01:10→20:33)
[2020-08-20 04:00] VITALS: BP 145/78
[2020-08-20] MEDS: AZTREONAM 1 GM VIAL IVP SCH ×3 (04:31→20:31)
[2020-08-20] MEDS: INSULIN HUMULIN R 100 UNIT/ML 3ML SQ SCH ×4 (05:21→23:24)
[2020-08-20 06:17] LABS: BASOPHILS % (AUTO) 0.6 % (0.0-5.0); HEMATOCRIT 37.3 % (42-54); LYMPHOCYTES % (AUTO) 7.8 % (21.0-51.0); MEAN CORPUSCULAR VOLUME 88.2 fL (79-99); MONOCYTES % (AUTO) 11.3 % (3.0-13.0); PLATELET COUNT (AUTO) 313 K/uL (130-400); RED BLOOD CELL COUNT(AUTO) 4.23 MIL/uL (4.50-6.20); RED CELL DISTRIBUTION WIDTH 13.2 % (11.0-15.5); WHITE BLOOD COUNT (AUTO) 14.7 K/uL (4.8-10.8)
[2020-08-20 06:36] LABS: ALBUMIN 1.7 g/dL (3.5-5.0); BILIRUBIN,DIRECT 0.2 mg/dL (0.0-0.3); BILIRUBIN,TOTAL 0.8 mg/dL (0.2-1.0); CREATININE 0.6 mg/dL (0.5-1.5); TOTAL PROTEIN, SERUM 5.6 g/dL (6.0-8.3)
[2020-08-20 06:39] LABS: POTASSIUM 2.9 mmol/L (3.5-5.1)
[2020-08-20] MEDS: POTASSIUM CHLORIDE 20MEQ/100ML 100 ML IV PRN ×2 (06:42→18:22)
[2020-08-20 07:56] VITALS: BP 147/85
[2020-08-20] MEDS: INSULIN GLARGINE 100 UNITS/ML 10 ML VIAL SQ SCH ×2 (09:00→20:35)
[2020-08-20] MEDS: ENOXAPARIN SODIUM 40 MG/0.4 ML SYRINGE SQ SCH (09:00)
[2020-08-20] MEDS ORDERED: LOPERAMIDE HCL 2 MG CAP PO ONE (09:55)
[2020-08-20] MEDS: LISINOPRIL 10 MG TABLET PO SCH (10:06)
[2020-08-20] MEDS: FAMOTIDINE 20MG VIAL IV SCH ×2 (10:07→20:30)
[2020-08-20] MEDS: LOPERAMIDE HCL 2 MG CAP PO PRN ×2 (11:00→20:30)
[2020-08-20 11:41] VITALS: BP 148/80
[2020-08-20] MEDS ORDERED: VANCOMYCIN 1G 2 GM in 0.9% NACL 500ML IV.SOLN 500 ML IV SCH (12:00)
[2020-08-20] MEDS: ASPIRIN 81 MG EC TAB PO SCH (12:05)
[2020-08-20 17:35] LABS: CREATININE 0.6 mg/dL (0.5-1.5)
[2020-08-20 17:39] LABS: POTASSIUM 2.8 mmol/L (3.5-5.1)
[2020-08-20 19:01] VITALS: BP 137/78
[2020-08-20 20:00] VITALS: BP 153/76
[2020-08-20] MEDS ORDERED: KCL 20 MEQ ERTAB PO SCH (20:15)
[2020-08-20] MEDS: ATORVASTATIN 20 MG TABLET PO SCH (20:30)
[2020-08-20] MEDS: LEVOFLOXACIN 500 MG/D5W 100 ML 100 ML IV SCH (20:31)
[2020-08-20 21:11] LABS: CREATININE 0.7 mg/dL (0.5-1.5); MAGNESIUM 2.1 mg/dL (1.80-2.40); POTASSIUM 3.4 mmol/L (3.5-5.1)
[2020-08-21] VITALS (7 sets, daily range): BP systolic 114–144; BP diastolic 72–80
[2020-08-21] MEDS: LACTATED RINGERS 1000ML 1,000 ML IV SCH ×4 (01:41→22:46)
[2020-08-21] MEDS: INSULIN HUMULIN R 100 UNIT/ML 3ML SQ SCH ×3 (05:24→21:00)
[2020-08-21] MEDS: VANCOMYCIN 1G 1.25 GM in 0.9% NACL 250ML 250 ML IV SCH ×3 (05:37→21:11)
[2020-08-21] MEDS: AZTREONAM 1 GM VIAL IVP SCH ×3 (05:37→21:11)
[2020-08-21 05:45] LABS: BASOPHILS % (AUTO) 0.1 % (0.0-5.0); EOSINOPHILS % (AUTO) 1.1 % (0.0-8.0); HEMATOCRIT 38.3 % (42-54); LYMPHOCYTES % (AUTO) 7.6 % (21.0-51.0); MEAN CORPUSCULAR HEMOGLOBIN 30.3 pg (27.0-33.0); MEAN CORPUSCULAR HGB CONC 34.2 g/dL (32.0-36.0); MEAN CORPUSCULAR VOLUME 88.5 fL (79-99); MONOCYTES % (AUTO) 9.2 % (3.0-13.0); NEUTROPHILS % (AUTO) 76.9 % (40.0-77.0); PLATELET COUNT (AUTO) 282 K/uL (130-400); RED BLOOD CELL COUNT(AUTO) 4.33 MIL/uL (4.50-6.20); RED CELL DISTRIBUTION WIDTH 13.2 % (11.0-15.5); WHITE BLOOD COUNT (AUTO) 20.5 K/uL (4.8-10.8)
[2020-08-21 06:17] LABS: CARBON DIOXIDE 26 mmol/L (21-32); CHLORIDE 102 mmol/L (101-111); CREATININE 0.6 mg/dL (0.5-1.5); GLOMERULAR FILTR. RATE CALC 148 mL/min (>60); GLUCOSE,RANDOM 56 mg/dL (70-105); SODIUM SERUM 136 mmol/L (136-145); UREA NITROGEN, BLOOD 12 mg/dL (7-18)
[2020-08-21 07:13] LABS: LIPASE < 50 U/L (114-286)
[2020-08-21] MEDS ORDERED: KCL 20 MEQ ERTAB PO SCH (08:30)
[2020-08-21] MEDS: FAMOTIDINE 20MG VIAL IV SCH ×2 (09:30→21:05)
[2020-08-21] MEDS: ASPIRIN 81 MG EC TAB PO SCH (09:30)
[2020-08-21] MEDS: LISINOPRIL 10 MG TABLET PO SCH (09:33)
[2020-08-21] MEDS: ENOXAPARIN SODIUM 40 MG/0.4 ML SYRINGE SQ SCH (09:35)
[2020-08-21] MEDS: INSULIN GLARGINE 100 UNITS/ML 10 ML VIAL SQ SCH (10:54)
[2020-08-21] MEDS: MORPHINE 2 MG SYG IVP PRN ×2 (13:02→15:27)
[2020-08-21] MEDS ORDERED: MAG/ALUM/SIMETH 30 ML UDCUP PO SCH (13:30)
[2020-08-21] MEDS: POTASSIUM CHLORIDE 20MEQ/100ML 100 ML IV PRN (15:25)
[2020-08-21] MEDS: LIDOCAINE HCL-MPF 1% 2ML VIAL IV PRN (15:25)
[2020-08-21] MEDS ORDERED: DEXTROSE 5 % AND 0.9 % NACL 1,000 ML IV SCH (16:00)
[2020-08-21] MEDS: LOPERAMIDE HCL 2 MG CAP PO PRN (21:04)
[2020-08-21] MEDS: ATORVASTATIN 20 MG TABLET PO SCH (21:05)
[2020-08-21] MEDS: LEVOFLOXACIN 500 MG/D5W 100 ML 100 ML IV SCH (22:44)
[2020-08-22 04:00] VITALS: BP 130/65
[2020-08-22] MEDS: INSULIN HUMULIN R 100 UNIT/ML 3ML SQ SCH ×3 (06:00→18:00)
[2020-08-22 06:04] LABS: BASOPHILS % (AUTO) 0.1 % (0.0-5.0); EOSINOPHILS % (AUTO) 0.6 % (0.0-8.0); HEMATOCRIT 38.3 % (42-54); LYMPHOCYTES % (AUTO) 5.5 % (21.0-51.0); MEAN CORPUSCULAR HGB CONC 33.4 g/dL (32.0-36.0); MEAN CORPUSCULAR VOLUME 89.7 fL (79-99); MONOCYTES % (AUTO) 7.1 % (3.0-13.0); NEUTROPHILS % (AUTO) 83.4 % (40.0-77.0); PLATELET COUNT (AUTO) 269 K/uL (130-400); RED BLOOD CELL COUNT(AUTO) 4.27 MIL/uL (4.50-6.20); RED CELL DISTRIBUTION WIDTH 13.5 % (11.0-15.5); WHITE BLOOD COUNT (AUTO) 23.5 K/uL (4.8-10.8)
[2020-08-22 06:30] LABS: CREATININE 0.6 mg/dL (0.5-1.5); POTASSIUM 3.3 mmol/L (3.5-5.1)
[2020-08-22] MEDS: AZTREONAM 1 GM VIAL IVP SCH ×3 (06:38→21:34)
[2020-08-22] MEDS: VANCOMYCIN 1G 1.25 GM in 0.9% NACL 250ML 250 ML IV SCH (06:42)
[2020-08-22] MEDS: LACTATED RINGERS 1000ML 1,000 ML IV SCH ×3 (06:46→18:23)
[2020-08-22] MEDS ORDERED: INSULIN HUMULIN R 100 UNIT/ML 3ML SQ SCH (07:30)
[2020-08-22] MEDS: ASPIRIN 81 MG EC TAB PO SCH (09:00)
[2020-08-22] MEDS: ENOXAPARIN SODIUM 40 MG/0.4 ML SYRINGE SQ SCH (09:00)
[2020-08-22 09:20] VITALS: BP 143/77
[2020-08-22] MEDS: POTASSIUM CHLORIDE 20MEQ/100ML 100 ML IV PRN (10:10)
[2020-08-22] MEDS: FAMOTIDINE 20MG VIAL IV SCH ×2 (10:10→21:34)
[2020-08-22] MEDS: LIDOCAINE HCL-MPF 1% 2ML VIAL IV PRN (10:10)
[2020-08-22 12:37] VITALS: BP 151/93
[2020-08-22] MEDS: LOPERAMIDE HCL 2 MG CAP PO PRN ×2 (15:12→21:50)
[2020-08-22] MEDS: ERGOCALCIFEROL (VITAMIN D2) 50,000 UNIT CAPSULE PO SCH (15:13)
[2020-08-22] MEDS: LISINOPRIL 10 MG TABLET PO SCH (15:14)
[2020-08-22 18:00] VITALS: BP 127/66
[2020-08-22] MEDS ORDERED: PHARMACY COMMUNICATION MISC SCH (19:00)
[2020-08-22] MEDS ORDERED: COMPOUND PO MISCELLANEOUS 1 EACH MISC MISC PRN (19:30)
[2020-08-22 19:35] VITALS: BP 131/77
[2020-08-22] MEDS: ATORVASTATIN 20 MG TABLET PO SCH (21:34)
[2020-08-22] MEDS: VANCOMYCIN 250MG/5ML ORAL SOLUTION 40ML PO SCH ×2 (22:34)
[2020-08-23] VITALS (7 sets, daily range): BP systolic 122–147; BP diastolic 68–86
[2020-08-23] MEDS: LACTATED RINGERS 1000ML 1,000 ML IV SCH ×5 (01:32→22:03)
[2020-08-23] MEDS: VANCOMYCIN 250MG/5ML ORAL SOLUTION 40ML PO SCH ×8 (02:16→20:07)
[2020-08-23] MEDS: INSULIN HUMULIN R 100 UNIT/ML 3ML SQ SCH ×4 (06:00→18:00)
[2020-08-23 06:18] LABS: BASOPHILS % (AUTO) 0.7 % (0.0-5.0); EOSINOPHILS % (AUTO) 0.3 % (0.0-8.0); HEMATOCRIT 37.2 % (42-54); LYMPHOCYTES % (AUTO) 5.2 % (21.0-51.0); MEAN CORPUSCULAR HEMOGLOBIN 30.7 pg (27.0-33.0); MEAN CORPUSCULAR HGB CONC 34.1 g/dL (32.0-36.0); MEAN CORPUSCULAR VOLUME 89.9 fL (79-99); MONOCYTES % (AUTO) 6.2 % (3.0-13.0); NEUTROPHILS % (AUTO) 84.4 % (40.0-77.0); PLATELET COUNT (AUTO) 272 K/uL (130-400); RED BLOOD CELL COUNT(AUTO) 4.14 MIL/uL (4.50-6.20); RED CELL DISTRIBUTION WIDTH 13.4 % (11.0-15.5); WHITE BLOOD COUNT (AUTO) 26.2 K/uL (4.8-10.8)
[2020-08-23] MEDS: AZTREONAM 1 GM VIAL IVP SCH ×3 (06:36→20:16)
[2020-08-23 06:48] LABS: ALANINE AMINOTRANSFERASE 35 U/L (12-78); ALBUMIN 1.6 g/dL (3.5-5.0); ASPARTATE AMINOTRANSFERASE 40 U/L (10-37); BILIRUBIN,TOTAL 0.7 mg/dL (0.2-1.0); CARBON DIOXIDE 28 mmol/L (21-32); CHLORIDE 102 mmol/L (101-111); CREATININE 0.6 mg/dL (0.5-1.5); GLOMERULAR FILTR. RATE CALC 148 mL/min (>60); GLUCOSE,RANDOM 103 mg/dL (70-105); LIPASE < 50 U/L (114-286); SODIUM SERUM 141 mmol/L (136-145); TOTAL PROTEIN, SERUM 5.5 g/dL (6.0-8.3); UREA NITROGEN, BLOOD 13 mg/dL (7-18)
[2020-08-23 06:52] LABS: POTASSIUM 2.8 mmol/L (3.5-5.1)
[2020-08-23] MEDS: POTASSIUM CHLORIDE 20MEQ/100ML 100 ML IV PRN ×2 (07:24→11:18)
[2020-08-23] MEDS: LIDOCAINE HCL-MPF 1% 2ML VIAL IV PRN ×2 (07:25→11:18)
[2020-08-23] MEDS ORDERED: KCL 20 MEQ ERTAB PO SCH (08:30)
[2020-08-23] MEDS: ASPIRIN 81 MG EC TAB PO SCH (09:00)
[2020-08-23] MEDS ORDERED: CLINIMIX-E4.25%AA/D5+LYT2000ML 2,000 ML IV SCH (12:00)
[2020-08-23] MEDS: LOPERAMIDE HCL 2 MG CAP PO PRN ×2 (15:38→20:16)
[2020-08-23] MEDS: FAMOTIDINE 20MG VIAL IV SCH ×2 (15:41→20:10)
[2020-08-23] MEDS: LISINOPRIL 10 MG TABLET PO SCH (15:42)
[2020-08-23] MEDS: ENOXAPARIN SODIUM 40 MG/0.4 ML SYRINGE SQ SCH (15:44)
[2020-08-23] MEDS: ATORVASTATIN 20 MG TABLET PO SCH (20:10)
[2020-08-24] MEDS: INSULIN HUMULIN R 100 UNIT/ML 3ML SQ SCH ×4 (00:08→18:32)
[2020-08-24] MEDS: VANCOMYCIN 250MG/5ML ORAL SOLUTION 40ML PO SCH ×8 (01:26→21:46)
[2020-08-24 03:52] VITALS: BP 130/73
[2020-08-24] MEDS: AZTREONAM 1 GM VIAL IVP SCH ×3 (05:15→21:36)
[2020-08-24 05:56] LABS: BASOPHILS % (AUTO) 0.5 % (0.0-5.0); EOSINOPHILS % (AUTO) 0.4 % (0.0-8.0); HEMATOCRIT 35.7 % (42-54); LYMPHOCYTES % (AUTO) 5.5 % (21.0-51.0); MEAN CORPUSCULAR HEMOGLOBIN 29.9 pg (27.0-33.0); MEAN CORPUSCULAR HGB CONC 33.3 g/dL (32.0-36.0); MEAN CORPUSCULAR VOLUME 89.7 fL (79-99); MONOCYTES % (AUTO) 6.9 % (3.0-13.0); NEUTROPHILS % (AUTO) 84.8 % (40.0-77.0); PLATELET COUNT (AUTO) 269 K/uL (130-400); RED BLOOD CELL COUNT(AUTO) 3.98 MIL/uL (4.50-6.20); RED CELL DISTRIBUTION WIDTH 13.7 % (11.0-15.5); WHITE BLOOD COUNT (AUTO) 20.7 K/uL (4.8-10.8)
[2020-08-24 06:11] LABS: CREATININE 0.6 mg/dL (0.5-1.5); MAGNESIUM 1.8 mg/dL (1.80-2.40); POTASSIUM 3.9 mmol/L (3.5-5.1)
[2020-08-24] MEDS ORDERED: CLINIMIX-E4.25%AA/D5+LYT2000ML 2,000 ML IV SCH (07:30)
[2020-08-24 08:00] VITALS: BP 124/74
[2020-08-24] MEDS: FAMOTIDINE 20MG VIAL IV SCH ×2 (08:28→21:36)
[2020-08-24] MEDS: ASPIRIN 81 MG EC TAB PO SCH (08:28)
[2020-08-24] MEDS: LISINOPRIL 10 MG TABLET PO SCH (08:28)
[2020-08-24] MEDS: LACTATED RINGERS 1000ML 1,000 ML IV SCH ×2 (08:34→18:45)
[2020-08-24] MEDS: ENOXAPARIN SODIUM 40 MG/0.4 ML SYRINGE SQ SCH (08:34)
[2020-08-24 12:00] VITALS: BP 137/70
[2020-08-24 13:44] LABS: INR 1.11 (0.85-1.15); PROTHROMBIN TIME 11.8 SEC (9.6-11.6)
[2020-08-24 13:45] LABS: PARTIAL THROMBOPLASTIN TIME 29.4 SEC (26.3-35.5)
[2020-08-24 15:44] VITALS: BP 129/76
[2020-08-24 20:23] VITALS: BP 131/59
[2020-08-24] MEDS: ATORVASTATIN 20 MG TABLET PO SCH (21:36)
[2020-08-24 23:56] VITALS: BP 128/79
[2020-08-25] MEDS: INSULIN HUMULIN R 100 UNIT/ML 3ML SQ SCH ×4 (01:40→17:41)
[2020-08-25 03:53] VITALS: BP 135/63
[2020-08-25] MEDS: VANCOMYCIN 250MG/5ML ORAL SOLUTION 40ML PO SCH ×4 (04:31→08:22)
[2020-08-25] MEDS: LACTATED RINGERS 1000ML 1,000 ML IV SCH ×2 (04:31→21:22)
[2020-08-25] MEDS: AZTREONAM 1 GM VIAL IVP SCH ×3 (05:33→22:20)
[2020-08-25] MEDS: LISINOPRIL 10 MG TABLET PO SCH (08:22)
[2020-08-25] MEDS: ASPIRIN 81 MG EC TAB PO SCH (08:22)
[2020-08-25] MEDS: FAMOTIDINE 20MG VIAL IV SCH ×2 (08:22→22:20)
[2020-08-25] MEDS: ENOXAPARIN SODIUM 40 MG/0.4 ML SYRINGE SQ SCH (08:23)
[2020-08-25 08:41] VITALS: BP 149/81
[2020-08-25 08:48] LABS: BASOPHILS % (AUTO) 0.5 % (0.0-5.0); EOSINOPHILS % (AUTO) 0.5 % (0.0-8.0); HEMATOCRIT 37.8 % (42-54); LYMPHOCYTES % (AUTO) 7.4 % (21.0-51.0); MEAN CORPUSCULAR HEMOGLOBIN 30.1 pg (27.0-33.0); MEAN CORPUSCULAR HGB CONC 32.8 g/dL (32.0-36.0); MEAN CORPUSCULAR VOLUME 91.7 fL (79-99); NEUTROPHILS % (AUTO) 83.1 % (40.0-77.0); PLATELET COUNT (AUTO) 298 K/uL (130-400); RED BLOOD CELL COUNT(AUTO) 4.12 MIL/uL (4.50-6.20); RED CELL DISTRIBUTION WIDTH 13.9 % (11.0-15.5); WHITE BLOOD COUNT (AUTO) 17.1 K/uL (4.8-10.8)
[2020-08-25 08:58] LABS: CREATININE 0.5 mg/dL (0.5-1.5); POTASSIUM 3.4 mmol/L (3.5-5.1)
[2020-08-25 11:47] VITALS: BP 127/69
[2020-08-25] MEDS: POTASSIUM CHLORIDE 20MEQ/100ML 100 ML IV PRN (12:27)
[2020-08-25] MEDS: LIDOCAINE HCL-MPF 1% 2ML VIAL IV PRN (12:27)
[2020-08-25] MEDS ORDERED: M.V.I. IV [ADULT] 10 ML in CLINIMIX-E4.25%AA/D5+LYT2000ML 2,000 ML IV SCH (15:45)
[2020-08-25 17:04] VITALS: BP 140/74
[2020-08-25] MEDS: LOPERAMIDE HCL 2 MG CAP PO PRN (18:08)
[2020-08-25 20:00] VITALS: BP 150/82
[2020-08-25] MEDS: ATORVASTATIN 20 MG TABLET PO SCH (22:19)
[2020-08-26 01:06] VITALS: BP 150/87
[2020-08-26] MEDS: INSULIN HUMULIN R 100 UNIT/ML 3ML SQ SCH ×4 (01:20→18:15)
[2020-08-26 05:35] LABS: BASOPHILS % (AUTO) 0.3 % (0.0-5.0); EOSINOPHILS % (AUTO) 0.7 % (0.0-8.0); HEMATOCRIT 34.1 % (42-54); LYMPHOCYTES % (AUTO) 10.9 % (21.0-51.0); MEAN CORPUSCULAR HEMOGLOBIN 30.2 pg (27.0-33.0); MEAN CORPUSCULAR HGB CONC 33.7 g/dL (32.0-36.0); MEAN CORPUSCULAR VOLUME 89.5 fL (79-99); MONOCYTES % (AUTO) 8.1 % (3.0-13.0); NEUTROPHILS % (AUTO) 78.6 % (40.0-77.0); PLATELET COUNT (AUTO) 266 K/uL (130-400); RED BLOOD CELL COUNT(AUTO) 3.81 MIL/uL (4.50-6.20); RED CELL DISTRIBUTION WIDTH 13.3 % (11.0-15.5); WHITE BLOOD COUNT (AUTO) 12.2 K/uL (4.8-10.8)
[2020-08-26 05:43] LABS: CREATININE 0.5 mg/dL (0.5-1.5); MAGNESIUM 1.7 mg/dL (1.80-2.40); POTASSIUM 3.4 mmol/L (3.5-5.1)
[2020-08-26 06:08] VITALS: BP 157/89
[2020-08-26] MEDS: AZTREONAM 1 GM VIAL IVP SCH ×3 (06:27→22:14)
[2020-08-26 08:25] VITALS: BP 148/80
[2020-08-26] MEDS: LISINOPRIL 10 MG TABLET PO SCH (08:29)
[2020-08-26] MEDS: ASPIRIN 81 MG EC TAB PO SCH (08:29)
[2020-08-26] MEDS: POTASSIUM CHLORIDE 20MEQ/100ML 100 ML IV PRN (08:30)
[2020-08-26] MEDS: FAMOTIDINE 20MG VIAL IV SCH ×2 (08:30→22:14)
[2020-08-26] MEDS: ENOXAPARIN SODIUM 40 MG/0.4 ML SYRINGE SQ SCH (08:30)
[2020-08-26] MEDS: 0.9%NACL 10ML VIAL IV SCH ×2 (09:00→22:14)
[2020-08-26 11:51] VITALS: BP 134/63
[2020-08-26 16:01] VITALS: BP 123/81
[2020-08-26 20:21] VITALS: BP 147/85
[2020-08-26] MEDS ORDERED: CLINIMIX-E 5%AA /D15%W 2000ML 2,000 ML IV SCH (20:30)
[2020-08-26] MEDS ORDERED: M.V.I. IV [ADULT] 10 ML in CLINIMIX-E4.25%AA/D5+LYT2000ML 2,000 ML IV SCH (21:00)
[2020-08-26] MEDS: ATORVASTATIN 20 MG TABLET PO SCH (22:15)
[2020-08-27 00:16] VITALS: BP 130/82
[2020-08-27] MEDS: INSULIN HUMULIN R 100 UNIT/ML 3ML SQ SCH ×4 (01:02→18:18)
[2020-08-27 04:00] VITALS: BP 134/87
[2020-08-27] MEDS: AZTREONAM 1 GM VIAL IVP SCH ×4 (06:05→22:17)
[2020-08-27 07:00] LABS: BASOPHILS % (AUTO) 0.3 % (0.0-5.0); EOSINOPHILS % (AUTO) 0.8 % (0.0-8.0); HEMATOCRIT 34.8 % (42-54); LYMPHOCYTES % (AUTO) 11.9 % (21.0-51.0); MEAN CORPUSCULAR HEMOGLOBIN 29.9 pg (27.0-33.0); MEAN CORPUSCULAR VOLUME 90.6 fL (79-99); MONOCYTES % (AUTO) 7.4 % (3.0-13.0); NEUTROPHILS % (AUTO) 77.9 % (40.0-77.0); PLATELET COUNT (AUTO) 327 K/uL (130-400); RED BLOOD CELL COUNT(AUTO) 3.84 MIL/uL (4.50-6.20); RED CELL DISTRIBUTION WIDTH 13.4 % (11.0-15.5)
[2020-08-27 07:16] LABS: ALANINE AMINOTRANSFERASE 21 U/L (12-78); ALBUMIN 1.4 g/dL (3.5-5.0); ASPARTATE AMINOTRANSFERASE 32 U/L (10-37); BILIRUBIN,TOTAL 0.5 mg/dL (0.2-1.0); CARBON DIOXIDE 30 mmol/L (21-32); CHLORIDE 101 mmol/L (101-111); CREATININE 0.6 mg/dL (0.5-1.5); GLOMERULAR FILTR. RATE CALC 148 mL/min (>60); GLUCOSE,RANDOM 236 mg/dL (70-105); POTASSIUM 3.6 mmol/L (3.5-5.1); SODIUM SERUM 137 mmol/L (136-145); TOTAL PROTEIN, SERUM 5.3 g/dL (6.0-8.3); UREA NITROGEN, BLOOD 12 mg/dL (7-18)
[2020-08-27 07:30] VITALS: BP 136/84
[2020-08-27 07:31] LABS: LIPASE < 50 U/L (114-286)
[2020-08-27] MEDS: 0.9%NACL 10ML VIAL IV SCH ×2 (09:00→20:59)
[2020-08-27 11:00] VITALS: BP 151/90
[2020-08-27] MEDS: FAMOTIDINE 20MG VIAL IV SCH ×2 (11:06→21:00)
[2020-08-27] MEDS: LISINOPRIL 10 MG TABLET PO SCH (11:06)
[2020-08-27] MEDS: ASPIRIN 81 MG EC TAB PO SCH (11:06)
[2020-08-27] MEDS: ENOXAPARIN SODIUM 40 MG/0.4 ML SYRINGE SQ SCH (11:07)
[2020-08-27] MEDS: FAT EMULSIONS 20% 250ML 250 ML IV SCH (13:20)
[2020-08-27 16:00] VITALS: BP 151/84
[2020-08-27] MEDS ORDERED: MAGNESIUM 2GM PREMIX 50ML 50 ML IV PRN (18:30)
[2020-08-27 20:00] VITALS: BP 159/88
[2020-08-27] MEDS ORDERED: INSULIN GLARGINE 100 UNITS/ML 10 ML VIAL SQ ONE (21:00)
[2020-08-27] MEDS: ATORVASTATIN 20 MG TABLET PO SCH (21:00)
[2020-08-27] MEDS: SIMETHICONE 80 MG TAB.CHEW PO PRN (21:00)
[2020-08-28] VITALS (7 sets, daily range): BP systolic 133–155; BP diastolic 75–93
[2020-08-28] MEDS: INSULIN HUMULIN R 100 UNIT/ML 3ML SQ SCH ×5 (00:14→23:26)
[2020-08-28 06:20] LABS: BASOPHILS % (AUTO) 0.5 % (0.0-5.0); HEMATOCRIT 35.2 % (42-54); LYMPHOCYTES % (AUTO) 12.5 % (21.0-51.0); MEAN CORPUSCULAR HEMOGLOBIN 30.2 pg (27.0-33.0); MEAN CORPUSCULAR HGB CONC 33.5 g/dL (32.0-36.0); MONOCYTES % (AUTO) 8.5 % (3.0-13.0); NEUTROPHILS % (AUTO) 75.6 % (40.0-77.0); PLATELET COUNT (AUTO) 366 K/uL (130-400); RED BLOOD CELL COUNT(AUTO) 3.91 MIL/uL (4.50-6.20); RED CELL DISTRIBUTION WIDTH 13.2 % (11.0-15.5); WHITE BLOOD COUNT (AUTO) 11.9 K/uL (4.8-10.8)
[2020-08-28 06:44] LABS: CREATININE 0.6 mg/dL (0.5-1.5); MAGNESIUM 1.9 mg/dL (1.80-2.40); POTASSIUM 3.9 mmol/L (3.5-5.1)
[2020-08-28] MEDS: 0.9%NACL 10ML VIAL IV SCH ×2 (08:33→19:58)
[2020-08-28] MEDS: LISINOPRIL 10 MG TABLET PO SCH (08:35)
[2020-08-28] MEDS: ASPIRIN 81 MG EC TAB PO SCH (08:35)
[2020-08-28] MEDS: SIMETHICONE 80 MG TAB.CHEW PO PRN (08:35)
[2020-08-28] MEDS: ENOXAPARIN SODIUM 40 MG/0.4 ML SYRINGE SQ SCH (08:37)
[2020-08-28] MEDS: FAMOTIDINE 20MG VIAL IV SCH ×2 (11:06→19:59)
[2020-08-28] MEDS: AZTREONAM 1 GM VIAL IVP SCH ×2 (15:19→19:59)
[2020-08-28] MEDS ORDERED: PHARMACY COMMUNICATION MISC SCH (19:15)
[2020-08-28] MEDS: ATORVASTATIN 20 MG TABLET PO SCH (19:59)
[2020-08-29 04:24] VITALS: BP 155/85
[2020-08-29] MEDS: AZTREONAM 1 GM VIAL IVP SCH ×3 (05:06→22:43)
[2020-08-29] MEDS: INSULIN HUMULIN R 100 UNIT/ML 3ML SQ SCH ×3 (05:32→16:38)
[2020-08-29 06:30] LABS: HEMATOCRIT 37.9 % (42-54); MEAN CORPUSCULAR HEMOGLOBIN 29.7 pg (27.0-33.0); MEAN CORPUSCULAR HGB CONC 32.5 g/dL (32.0-36.0); MEAN CORPUSCULAR VOLUME 91.5 fL (79-99); PLATELET COUNT (AUTO) 484 K/uL (130-400); RED BLOOD CELL COUNT(AUTO) 4.14 MIL/uL (4.50-6.20); RED CELL DISTRIBUTION WIDTH 13.2 % (11.0-15.5); WHITE BLOOD COUNT (AUTO) 11.8 K/uL (4.8-10.8)
[2020-08-29 06:45] LABS: ALBUMIN 1.8 g/dL (3.5-5.0); BILIRUBIN,TOTAL 0.6 mg/dL (0.2-1.0); CREATININE 0.6 mg/dL (0.5-1.5); POTASSIUM 3.9 mmol/L (3.5-5.1); TOTAL PROTEIN, SERUM 6.1 g/dL (6.0-8.3)
[2020-08-29 07:23] LABS: BASOPHILS % (MANUAL) 1 % (0-2); EOSINOPHILS % (MANUAL) 1 % (1-6); LYMPHOCYTES % (MANUAL) 20 % (22-44); MAN.DIFF COMMENT-IMPRESSION MANUAL DIFFERENTIAL; MONOCYTES % (MANUAL) 2 % (2-9); PLATELET MORPHOLOGY COMMENT SLIGHT INCREASED; SEGMENTED NEUTROPHILS % 76 % (40-70)
[2020-08-29] MEDS: ASPIRIN 81 MG EC TAB PO SCH (08:07)
[2020-08-29] MEDS: ERGOCALCIFEROL (VITAMIN D2) 50,000 UNIT CAPSULE PO SCH (08:07)
[2020-08-29] MEDS: LISINOPRIL 10 MG TABLET PO SCH (08:08)
[2020-08-29] MEDS: FAMOTIDINE 20MG VIAL IV SCH ×2 (08:08→20:54)
[2020-08-29] MEDS: 0.9%NACL 10ML VIAL IV SCH ×2 (08:08→21:00)
[2020-08-29 08:10] VITALS: BP 153/85
[2020-08-29] MEDS: FAT EMULSIONS 20% 250ML 250 ML IV SCH (10:00)
[2020-08-29] MEDS: ENOXAPARIN SODIUM 120 MG/0.8ML SQ SCH ×2 (10:12→20:53)
[2020-08-29] MEDS ORDERED: SIMETHICONE 80 MG TAB.CHEW ONE (10:43)
[2020-08-29 11:40] VITALS: BP 155/87
[2020-08-29 16:30] VITALS: BP 155/85
[2020-08-29 19:34] VITALS: BP 135/77
[2020-08-29] MEDS: ATORVASTATIN 20 MG TABLET PO SCH (20:54)
[2020-08-29 23:17] VITALS: BP 144/85
[2020-08-30] MEDS: INSULIN HUMULIN R 100 UNIT/ML 3ML SQ SCH ×3 (01:02→12:55)
[2020-08-30 03:29] VITALS: BP 165/92
[2020-08-30] MEDS: AZTREONAM 1 GM VIAL IVP SCH (05:26)
[2020-08-30 05:31] LABS: BASOPHILS % (AUTO) 0.4 % (0.0-5.0); HEMATOCRIT 34.7 % (42-54); LYMPHOCYTES % (AUTO) 14.5 % (21.0-51.0); MEAN CORPUSCULAR HEMOGLOBIN 30.3 pg (27.0-33.0); MEAN CORPUSCULAR HGB CONC 33.7 g/dL (32.0-36.0); MEAN CORPUSCULAR VOLUME 89.9 fL (79-99); MONOCYTES % (AUTO) 8.7 % (3.0-13.0); NEUTROPHILS % (AUTO) 74.2 % (40.0-77.0); PLATELET COUNT (AUTO) 469 K/uL (130-400); RED BLOOD CELL COUNT(AUTO) 3.86 MIL/uL (4.50-6.20); RED CELL DISTRIBUTION WIDTH 13.2 % (11.0-15.5); WHITE BLOOD COUNT (AUTO) 11.3 K/uL (4.8-10.8)
[2020-08-30 05:52] LABS: ALBUMIN 1.7 g/dL (3.5-5.0); BILIRUBIN,TOTAL 0.5 mg/dL (0.2-1.0); CREATININE 0.7 mg/dL (0.5-1.5); MAGNESIUM 1.8 mg/dL (1.80-2.40); POTASSIUM 4.3 mmol/L (3.5-5.1); TOTAL PROTEIN, SERUM 5.9 g/dL (6.0-8.3)
[2020-08-30 07:30] VITALS: BP 128/77
[2020-08-30] MEDS: 0.9%NACL 10ML VIAL IV SCH (09:00)
[2020-08-30] MEDS: ERGOCALCIFEROL (VITAMIN D2) 50,000 UNIT CAPSULE PO SCH (10:10)
[2020-08-30] MEDS: FAMOTIDINE 20MG VIAL IV SCH (10:10)
[2020-08-30] MEDS: ASPIRIN 81 MG EC TAB PO SCH (10:10)
[2020-08-30] MEDS: ENOXAPARIN SODIUM 120 MG/0.8ML SQ SCH (10:11)
[2020-08-30] MEDS: LISINOPRIL 10 MG TABLET PO SCH (10:11)
[2020-08-30] MEDS ORDERED: SIMETHICONE 80 MG TAB.CHEW ONE (10:38)
[2020-08-30 11:00] VITALS: BP 145/89
[2020-08-30 16:00] VITALS: BP 139/90
[2020-08-30] MEDS ORDERED: INSU3INS3 SQ (16:13)
== END 2020-08-30 17:00 | disposition home or self-care (01) | DRG 871 ==
LOC: 3DH 18:29
PROVIDERS: ADMIT Internal Medicine; ATTEND Internal Medicine
PROC: 0DJ08ZZ Inspection of Upper Intestinal Tract, Via Natural or Artificial Opening Endoscopic (ICD-10-PCS; principal; 2020-08-17)
PROC: 0DHA7UZ Insertion of Feeding Device into Jejunum, Via Natural or Artificial Opening (ICD-10-PCS; 2020-08-22)
PROC: 02HV33Z Insertion of Infusion Device into Superior Vena Cava, Percutaneous Approach (ICD-10-PCS; 2020-08-25)
PROC: B548ZZA Ultrasonography of Superior Vena Cava, Guidance (ICD-10-PCS; 2020-08-25)
PROC: 02PYX3Z Removal of Infusion Device from Great Vessel, External Approach (ICD-10-PCS; 2020-08-25)
DX: A41.9 Sepsis, unspecified organism (principal); K85.91 Acute pancreatitis with uninfected necrosis, unspecified; B17.9 Acute viral hepatitis, unspecified; T82.868A Thrombosis due to vascular prosthetic devices, implants and grafts, initial encounter; E11.9 Type 2 diabetes mellitus without complications; I10 Essential (primary) hypertension; R65.20 Severe sepsis without septic shock; E87.6 Hypokalemia; K52.9 Noninfective gastroenteritis and colitis, unspecified; E11.65 Type 2 diabetes mellitus with hyperglycemia; E66.01 Morbid (severe) obesity due to excess calories; E78.5 Hyperlipidemia, unspecified; E88.09 Other disorders of plasma-protein metabolism, not elsewhere classified; F03.90 Unspecified dementia, unspecified severity, without behavioral disturbance, psychotic disturbance, mood disturbance, and anxiety; K57.90 Diverticulosis of intestine, part unspecified, without perforation or abscess without bleeding; K86.9 Disease of pancreas, unspecified; K31.89 Other diseases of stomach and duodenum; Y83.8 Other surgical procedures as the cause of abnormal reaction of the patient, or of later complication, without mention of misadventure at the time of the procedure; Y92.239 Unspecified place in hospital as the place of occurrence of the external cause; Z90.49 Acquired absence of other specified parts of digestive tract; Z93.4 Other artificial openings of gastrointestinal tract status; Z88.0 Allergy status to penicillin; Z68.35 Body mass index [BMI] 35.0-35.9, adult
CPT/HCPCS: 36415; 43237; 74018; 74174; 74176; 74181; 78226; 80048; 80053; 80061; 80076; 80202; 81241; 82150; 82948; 83090; 83605; 83690; 83735; 84132; 84145; 85025; 85220; 85300; 85302; 85305; 85610; 85730; 86147; 87040; 87324; 87507; 93971; A4606; A9537; C1894; G0378; J0330; J1170; J1650; J1815; J1956; J2060; J2405; J2704; J3010; J3370; J3480; J3490; J7030; J7040; J7042; J7050; J7120; Q9967

== ENCOUNTER 2020-09-28 14:19 | Inpatient (IN) | payer OTHER ==
[~2020-09-28] VITALS: Ht 182.9 cm; Wt 97.8 kg
[~2020-09-28 14:19] MED LIST changes: -LEVO750T46 PO; -METR-172 PO
[2020-09-28] MEDS ORDERED: MORPHINE 4 MG SYG ONE (14:45)
[2020-09-28] MEDS ORDERED: ONDANSETRON 4MG INJ ONE (14:45)
[2020-09-28] MEDS ORDERED: 0.9%NACL 1000ML 1,000 ML IV ONE (14:46)
[2020-09-28 15:07] LABS: BASOPHILS % (AUTO) 0.4 % (0.0-5.0); EOSINOPHILS % (AUTO) 0.8 % (0.0-8.0); LYMPHOCYTES % (AUTO) 20.7 % (21.0-51.0); MEAN CORPUSCULAR HEMOGLOBIN 29.4 pg (27.0-33.0); MEAN CORPUSCULAR HGB CONC 33.2 g/dL (32.0-36.0); MEAN CORPUSCULAR VOLUME 88.8 fL (79-99); NEUTROPHILS % (AUTO) 71.8 % (40.0-77.0); PLATELET COUNT (AUTO) 399 K/uL (130-400); RED BLOOD CELL COUNT(AUTO) 4.28 MIL/uL (4.50-6.20); RED CELL DISTRIBUTION WIDTH 13.1 % (11.0-15.5); WHITE BLOOD COUNT (AUTO) 10.6 K/uL (4.8-10.8)
[2020-09-28 15:21] LABS: CREATININE 0.8 mg/dL (0.5-1.5); POTASSIUM 4.2 mmol/L (3.5-5.1)
[2020-09-28 15:25] LABS: BILIRUBIN,TOTAL 0.5 mg/dL (0.2-1.0); TOTAL PROTEIN, SERUM 7.7 g/dL (6.0-8.3)
[2020-09-28] MEDS ORDERED: IOHEXOL-350 75 ML VIAL IV ONE (15:25)
[2020-09-28] MEDS ORDERED: KETOROLAC 30MG VIAL (30MG/ML) ONE (17:44)
[2020-09-28] MEDS ORDERED: LACTATED RINGERS 1000ML 1,000 ML IV ONE (18:49)
[2020-09-28 19:06] LABS: CREATININE 0.7 mg/dL (0.5-1.5); POTASSIUM 4.8 mmol/L (3.5-5.1)
[2020-09-28 19:48] LABS: APPEARANCE,URINE Clear (CLEAR); BILIRUBIN,URINE Negative (NEGATIVE); COLOR,URINE Yellow (YELLOW); GLUCOSE, URINE (UA) 500 mg/dL (NEGATIVE); KETONES,URINE Negative (NEGATIVE); LEUKOCYTE ESTERASE ,URINE Negative (NEGATIVE); NITRATE,URINE Negative (NEGATIVE); OCCULT BLOOD,URINE Negative (NEGATIVE); PROTEIN,URINE Trace mg/dL (NEGATIVE)
[2020-09-28 20:01] LABS: BACTERIA,URINE None Seen /HPF (None Seen); MUCUS,URINE Few LPF (None Seen); RBC,URINE 0-1 /HPF (0-1); SQUAMOUS EPITHELIAL CELL,UR 0-2 /HPF (0-2); WBC,URINE 0-1 /HPF (0-1)
[2020-09-28 20:12] LABS: HEMOGLOBIN A1C 7.6 % (4.0-6.0)
[2020-09-28 20:15] LABS: AMPHET/METH SCREEN,URINE NEGATIVE (NEGATIVE); BARBITURATE SCREEN, URINE NEGATIVE (NEGATIVE); BENZODIAZEPINES SCREEN,URINE NEGATIVE (NEGATIVE); CANNABINOID SCREEN,URINE NEGATIVE (NEGATIVE); COCAINE SCREEN,URINE NEGATIVE (NEGATIVE); OPIATE SCREEN,URINE POSITIVE (NEGATIVE); PHENCYCLIDINE SCREEN,URINE NEGATIVE (NEGATIVE)
[2020-09-28] MEDS: FAMOTIDINE 20MG VIAL IV SCH (21:00)
[2020-09-28] MEDS ORDERED: HYDROMORPHONE 1 MG INJ IVP PRN (21:30)
[2020-09-28] MEDS ORDERED: ONDANSETRON 4MG INJ IVP PRN (21:30)
[2020-09-28] MEDS ORDERED: FAMOTIDINE 20MG VIAL IV ONE (21:32)
[2020-09-28 23:20] VITALS: BP 142/89
[2020-09-28] MEDS ORDERED: INSLAN SQ (23:27)
[2020-09-28] MEDS ORDERED: APIX5TAB PO (23:27)
[2020-09-29] MEDS: LACTATED RINGERS 1000ML 1,000 ML IV SCH ×5 (00:27→22:53)
[2020-09-29 04:00] VITALS: BP 124/84
[2020-09-29] MEDS: INSULIN HUMULIN R 100 UNIT/ML 3ML SQ SCH ×4 (06:00→17:02)
[2020-09-29 06:35] LABS: BASOPHILS % (AUTO) 0.4 % (0.0-5.0); EOSINOPHILS % (AUTO) 0.6 % (0.0-8.0); HEMATOCRIT 35.4 % (42-54); LYMPHOCYTES % (AUTO) 17.4 % (21.0-51.0); MEAN CORPUSCULAR HEMOGLOBIN 28.6 pg (27.0-33.0); MEAN CORPUSCULAR HGB CONC 32.8 g/dL (32.0-36.0); MEAN CORPUSCULAR VOLUME 87.4 fL (79-99); MONOCYTES % (AUTO) 11.5 % (3.0-13.0); NEUTROPHILS % (AUTO) 69.7 % (40.0-77.0); PLATELET COUNT (AUTO) 370 K/uL (130-400); RED BLOOD CELL COUNT(AUTO) 4.05 MIL/uL (4.50-6.20); RED CELL DISTRIBUTION WIDTH 13.2 % (11.0-15.5); WHITE BLOOD COUNT (AUTO) 7.1 K/uL (4.8-10.8)
[2020-09-29 06:58] LABS: ALBUMIN 2.4 g/dL (3.5-5.0); BILIRUBIN,TOTAL 0.9 mg/dL (0.2-1.0); CREATININE 0.7 mg/dL (0.5-1.5); POTASSIUM 4.2 mmol/L (3.5-5.1); TOTAL PROTEIN, SERUM 6.6 g/dL (6.0-8.3)
[2020-09-29] MEDS: FAMOTIDINE 20MG VIAL IV SCH ×2 (09:15→22:53)
[2020-09-29] MEDS: HYDROMORPHONE 0.5 MG SYG (0.5MG/0.5ML) IVP PRN ×3 (09:19→23:12)
[2020-09-29 09:45] VITALS: BP 146/87
[2020-09-29 12:55] VITALS: BP 166/93
[2020-09-29 19:55] VITALS: BP 135/91
[2020-09-30] VITALS: BP 125/78
[2020-09-30 04:00] VITALS: BP 143/86
[2020-09-30] MEDS: INSULIN HUMULIN R 100 UNIT/ML 3ML SQ SCH ×5 (06:00→21:00)
[2020-09-30] MEDS: LACTATED RINGERS 1000ML 1,000 ML IV SCH ×4 (06:48→21:13)
[2020-09-30 08:00] VITALS: BP 139/86
[2020-09-30] MEDS: FAMOTIDINE 20MG VIAL IV SCH ×2 (09:30→21:14)
[2020-09-30 10:38] LABS: BASOPHILS % (AUTO) 0.4 % (0.0-5.0); EOSINOPHILS % (AUTO) 0.5 % (0.0-8.0); HEMATOCRIT 34.8 % (42-54); LYMPHOCYTES % (AUTO) 10.7 % (21.0-51.0); MEAN CORPUSCULAR HEMOGLOBIN 29.2 pg (27.0-33.0); MEAN CORPUSCULAR HGB CONC 33.3 g/dL (32.0-36.0); MEAN CORPUSCULAR VOLUME 87.7 fL (79-99); MONOCYTES % (AUTO) 12.3 % (3.0-13.0); NEUTROPHILS % (AUTO) 75.8 % (40.0-77.0); PLATELET COUNT (AUTO) 368 K/uL (130-400); RED BLOOD CELL COUNT(AUTO) 3.97 MIL/uL (4.50-6.20); RED CELL DISTRIBUTION WIDTH 13.2 % (11.0-15.5); WHITE BLOOD COUNT (AUTO) 10.5 K/uL (4.8-10.8)
[2020-09-30 10:50] LABS: CREATININE 0.7 mg/dL (0.5-1.5); POTASSIUM 5.1 mmol/L (3.5-5.1)
[2020-09-30 10:54] LABS: ALBUMIN 2.3 g/dL (3.5-5.0); BILIRUBIN,TOTAL 1.4 mg/dL (0.2-1.0); TOTAL PROTEIN, SERUM 6.9 g/dL (6.0-8.3)
[2020-09-30 12:06] VITALS: BP 145/88
[2020-09-30] MEDS: CYCLOBENZAPRINE HCL 10 MG TABLET PO SCH ×2 (14:01→21:14)
[2020-09-30 16:00] VITALS: BP 144/87
[2020-09-30 20:00] VITALS: BP 156/90
[2020-10-01] VITALS: BP 144/79
[2020-10-01 04:00] VITALS: BP 139/88
[2020-10-01] MEDS: LACTATED RINGERS 1000ML 1,000 ML IV SCH ×3 (06:53→19:50)
[2020-10-01] MEDS: INSULIN HUMULIN R 100 UNIT/ML 3ML SQ SCH ×4 (06:53→20:48)
[2020-10-01 07:00] VITALS: BP 152/60
[2020-10-01] MEDS ORDERED: KETOROLAC 15MG/ML VIAL (15MG/ML) IM PRN (08:00)
[2020-10-01] MEDS: FAMOTIDINE 20MG VIAL IV SCH ×2 (09:00→20:45)
[2020-10-01] MEDS ORDERED: KETOROLAC 30MG VIAL (30MG/ML) IM PRN (10:15)
[2020-10-01 11:30] VITALS: BP 148/91
[2020-10-01 19:52] VITALS: BP 153/93
[2020-10-01 23:38] VITALS: BP 148/81
[2020-10-02] MEDS: LACTATED RINGERS 1000ML 1,000 ML IV SCH (02:29)
[2020-10-02 03:44] VITALS: BP 146/83
[2020-10-02] MEDS: INSULIN HUMULIN R 100 UNIT/ML 3ML SQ SCH (05:54)
[2020-10-02 08:12] VITALS: BP 133/75
[2020-10-02 09:30] LABS: BASOPHILS % (AUTO) 0.3 % (0.0-5.0); HEMATOCRIT 31.7 % (42-54); LYMPHOCYTES % (AUTO) 10.4 % (21.0-51.0); MEAN CORPUSCULAR HEMOGLOBIN 29.1 pg (27.0-33.0); MEAN CORPUSCULAR HGB CONC 33.1 g/dL (32.0-36.0); MEAN CORPUSCULAR VOLUME 87.8 fL (79-99); MONOCYTES % (AUTO) 8.8 % (3.0-13.0); NEUTROPHILS % (AUTO) 79.1 % (40.0-77.0); PLATELET COUNT (AUTO) 387 K/uL (130-400); RED BLOOD CELL COUNT(AUTO) 3.61 MIL/uL (4.50-6.20); RED CELL DISTRIBUTION WIDTH 13.2 % (11.0-15.5)
[2020-10-02 09:43] LABS: BILIRUBIN,TOTAL 0.8 mg/dL (0.2-1.0); CREATININE 0.7 mg/dL (0.5-1.5); POTASSIUM 3.6 mmol/L (3.5-5.1); TOTAL PROTEIN, SERUM 6.2 g/dL (6.0-8.3)
[2020-10-02 11:28] VITALS: BP 137/84
[2020-10-02] MEDS ORDERED: CYCL5TAB PO (13:24)
== END 2020-10-02 13:55 | disposition home or self-care (01) | DRG 439 ==
LOC: EDH 14:19 → EDHIP 18:29 → 3CH 22:39
PROVIDERS: ADMIT Internal Medicine; ATTEND Internal Medicine
DX: K85.90 Acute pancreatitis without necrosis or infection, unspecified (principal); K86.3 Pseudocyst of pancreas; E87.1 Hypo-osmolality and hyponatremia; K86.1 Other chronic pancreatitis; I10 Essential (primary) hypertension; E78.5 Hyperlipidemia, unspecified; E11.9 Type 2 diabetes mellitus without complications; M25.512 Pain in left shoulder; E86.1 Hypovolemia; Z90.49 Acquired absence of other specified parts of digestive tract; Z82.5 Family history of asthma and other chronic lower respiratory diseases; Z86.718 Personal history of other venous thrombosis and embolism; Z79.01 Long term (current) use of anticoagulants; Z79.899 Other long term (current) drug therapy; Z79.82 Long term (current) use of aspirin; Z79.4 Long term (current) use of insulin; Z88.0 Allergy status to penicillin
CPT/HCPCS: 36415; 71045; 73030; 73221; 74177; 80048; 80053; 80305; 81001; 82550; 82948; 83036; 83605; 83690; 84145; 84443; 84484; 85025; 87040; 93005; 93971; G0378; J1170; J1885; J2270; J2405; J3490; J7030; J7120; Q9967

== ENCOUNTER 2022-10-02 10:57 | Emergency (ER) | payer BC, OTHER ==
[~2022-10-02] VITALS: Ht 182.9 cm; Wt 107.0 kg
[~2022-10-02 10:57] MED LIST changes: -AEC81 PO; +APIX5TAB PO; +CYCL5TAB PO; +INSLAN SQ; -INSU3INS3 SQ; -LISI10TA24 PO; -METF-444 PO; -ROSU10TA28 PO; -UBID100C10 PO; -VITAD50000 PO
[2022-10-02 11:34] LABS: BASOPHILS % (AUTO) 0.6 % (0.0-5.0); EOSINOPHILS % (AUTO) 0.1 % (0.0-8.0); HEMATOCRIT 46.1 % (42-54); LYMPHOCYTES % (AUTO) 10.1 % (21.0-51.0); MEAN CORPUSCULAR HEMOGLOBIN 30.7 pg (27.0-33.0); MEAN CORPUSCULAR HGB CONC 34.1 g/dL (32.0-36.0); MONOCYTES % (AUTO) 7.1 % (3.0-13.0); NEUTROPHILS % (AUTO) 80.6 % (40.0-77.0); PLATELET COUNT (AUTO) 284 K/uL (130-400); RED BLOOD CELL COUNT(AUTO) 5.12 MIL/uL (4.50-6.20); RED CELL DISTRIBUTION WIDTH 12.2 % (11.0-15.5); WHITE BLOOD COUNT (AUTO) 17.6 K/uL (4.8-10.8)
[2022-10-02 11:44] LABS: APPEARANCE,URINE CLEAR (CLEAR); BILIRUBIN,URINE NEGATIVE (NEGATIVE); COLOR,URINE YELLOW (YELLOW); GLUCOSE, URINE (UA) >=1000 mg/dL (NEGATIVE); KETONES,URINE 20 mg/dL (NEGATIVE); LEUKOCYTE ESTERASE ,URINE NEGATIVE Leu/uL (NEGATIVE); NITRATE,URINE NEGATIVE (NEGATIVE); OCCULT BLOOD,URINE NEGATIVE (NEGATIVE); PH,URINE 6.5 (5.0-8.0); PROTEIN,URINE 50 mg/dL (NEGATIVE)
[2022-10-02 11:45] LABS: CREATININE 0.7 mg/dL (0.5-1.5); POTASSIUM 4.6 mmol/L (3.5-5.1)
[2022-10-02 11:47] LABS: ALBUMIN 3.8 g/dL (3.5-5.0); TOTAL PROTEIN, SERUM 8.2 g/dL (6.0-8.3)
[2022-10-02] MEDS ORDERED: 0.9%NACL 1000ML 2,000 ML IV ONE (12:00)
[2022-10-02] MEDS ORDERED: KETOROLAC 30MG VIAL (30MG/ML) IVP ONE (12:00)
[2022-10-02 12:18] LABS: MUCUS,URINE RARE LPF (None Seen); WBC,URINE 0-1 /HPF (0-1)
[2022-10-02 13:57] VITALS: BP 152/89
== END 2022-10-02 14:13 | disposition home or self-care (01) ==
LOC: EDH 10:57
DX: D72.829 Elevated white blood cell count, unspecified (principal); R10.9 Unspecified abdominal pain; E11.9 Type 2 diabetes mellitus without complications; E78.00 Pure hypercholesterolemia, unspecified; I10 Essential (primary) hypertension; Z87.442 Personal history of urinary calculi; Z79.01 Long term (current) use of anticoagulants; Z88.0 Allergy status to penicillin; Z90.49 Acquired absence of other specified parts of digestive tract
CPT/HCPCS: 99284; 74176; 96374; 96361; 80053; 85025; 81001; 36415; J7030; J1885

== ENCOUNTER 2025-06-18 15:55 | Inpatient (IN) | payer OTHER ==
[~2025-06-18] VITALS: Ht 182.9 cm; Wt 114.0 kg
[~2025-06-18 15:55] MED LIST changes: -CYCL5TAB PO; +CYCL5TAB3 PO
--- NOTE | 2025-06-18 18:13 | NUR ---
ARRIVAL TO UNIT PATIENT ARRIVED TO THE UNIT VIA STRETCHER. THE PATIENT AMBULATED TO THE BED WITH NO COMPLAINT. THE PATIENTS GAIT WAS STEADY DURING AMBULATION. THE PATIENT WAS ORIENTED TO THE ROOM AND GIVEN THE CALL LIGHT. THE PATIENT WAS IN NO APPARENT DISTRESS AT THIS TIME.
[2025-06-18 18:17] VITALS: BP 135/79; PULSE 69; RESP 18; TEMP 98.1
[2025-06-18 18:45] VITALS: O2SAT 97
[2025-06-18] MEDS ORDERED: PoTASSium chl 10% ELIXIR 20MEQ 20 MEQ/15 ML UDCUP PO PRN (19:00)
[2025-06-18] MEDS ORDERED: PoTASSium chloRIDE 20MEQ ER 20 MEQ ERTAB PO PRN (19:00)
[2025-06-18] MEDS ORDERED: MAGNESIUM 2GM PREMIX 50ML 50 ML IV SCH (19:00)
[2025-06-18] MEDS: 0.9%NACL 1000ML 1,000 ML IV ONE (19:07)
[2025-06-18 19:12] LABS: IMMATURE GRANULOCYTE ABSOLUTE 0.09 K/uL (0-1); NUCLEATED RED BLOOD CELLS 0.0 % (0.0-0.19); PLATELET COUNT (AUTO) 212 K/uL (130-400); RED BLOOD CELL COUNT(AUTO) 5.03 MIL/uL (4.50-6.20); RED CELL DISTRIBUTION WIDTH 13.3 % (11.0-15.5); WHITE BLOOD COUNT (AUTO) 14.2 K/uL (4.8-10.8)
[2025-06-18 19:19] LABS: ERYTHROCYTE SEDIMENTATION RATE 15 MM/HR (0-20)
[2025-06-18 19:27] LABS: ASPARTATE AMINOTRANSFERASE 18.0 U/L (10-37); CREATININE 0.7 mg/dL (0.5-1.3); GLOMERULAR FILTR. RATE CALC 105.0 mL/min (>90); GLUCOSE,RANDOM 87.0 mg/dL (70-105); LACTATE DEHYDROGENASE 119.0 U/L (81-234); LDL DIRECT 76.0 mg/dL (0-99); SODIUM SERUM 136.0 mmol/L (136-145); TOTAL PROTEIN, SERUM 7.5 g/dL (6.0-8.3); UREA NITROGEN, BLOOD 22.0 mg/dL (7-18)
[2025-06-18 19:28] LABS: CREATINE KINASE, TOTAL 126.0 U/L (21-232)
[2025-06-18] MEDS ORDERED: ROSU10TA98 PO (19:30)
[2025-06-18] MEDS ORDERED: PHARMACY COMMUNICATION MISC SCH (19:30)
[2025-06-18] MEDS ORDERED: ASPI-1443 PO (19:34)
[2025-06-18] MEDS ORDERED: LISI10TA24 PO (19:34)
[2025-06-18] MEDS ORDERED: PIOG30TA70 PO (19:34)
[2025-06-18] MEDS ORDERED: INSU200I4 SQ (19:34)
[2025-06-18] MEDS ORDERED: METF-910 PO (19:34)
[2025-06-18] MEDS ORDERED: EMPA25TA PO (19:34)
[2025-06-18] MEDS ORDERED: INSU100C6 SQ (19:35)
[2025-06-18 20:00] VITALS: PULSE 69; RESP 18; O2SAT 98; O2SAT 99
[2025-06-18] MEDS ORDERED: GLUCAGON 1MG KIT 1 MG ML IM PRN (20:00)
[2025-06-18] MEDS ORDERED: DEXTROSE 50%-WATER 50 ML DISP.SYRIN IV PRN (20:00)
[2025-06-18] MEDS: THIAMINE HCL 100 MG/ML 2ML VIAL IVP SCH (20:04)
[2025-06-18] MEDS: MEROPENEM 1GM 1 GM VIAL IVPB SCH (20:04)
[2025-06-18] MEDS: LACTATED RINGERS 1000ML 1,000 ML IV SCH (20:05)
--- NOTE | 2025-06-18 20:11 | HP ---
[facility] HISTORY AND PHYSICAL Date of Service: Jun 18, 2025 Time of Service: 19:57 HISTORY OF PRESENT ILLNESS: Date of service: 06/18/2025, patient was seen in [facility] room 311 This is a patient who was transferred from [facility] ER for further treatment and management of acute pancreatitis. This is a 59-year-old male with underlying history of obesity, type 2 diabetes mellitus, hypertension, hyperlipidemia, patient with previous history of pancreatitis in 2020 complicated by necrotizing pancreatitis, history of cholecystectomy [place] [address] Almanza who presented as a transfer from [facility] room for further evaluation of pancreatitis. Patient states that he was having some [id number] intensity epigastric pain associated with nausea that started yesterday with mild pain radiating to the back. Pain was about 3-4/10 in intensity. Symptoms were nonresolving prompting him to come to the ER today for further evaluation. Reports having some subjective chills as well. He has been doing relatively well since his hospitalization in 2020 and denies any recent hospitalization. Reports that he was hospitalized in [facility] in 2020 for necrotizing pancreatitis with pseudocyst. Patient had a prolonged hospitalization for management of pancreatitis. He also has a history of cholecystectomy due to cholecystitis in July,. Patient denies any history of hypertriglyceridemia, denies any significant alcohol consumption and denies any familial history of pancreatitis. He has been maintained on Jardiance for several years for management of type 2 diabetes mellitus. He is currently maintained on Tresiba 80 units daily and prandial insulin 30 units 3 times a day with meals for management of type 2 diabetes mellitus. On Presentation to the hospital, patient was noted to be afebrile and hemodynamically stable. Patient underwent a CT abdomen pelvis without IV contrast which showed findings of extensive peripancreatic edema with stranding with peripancreatic prominent lymph nodes in fluid tracking to the anterior left pararenal space. Patient was also found to have focus of gas and distal pancreas with necrotizing pancreatitis/pancreatic abscess which could not be ruled out. Patient will be admitted under hospitalist service. Patient will be kept NPO and will receive aggressive IV fluid resuscitation. [place] [id number] on labs in [facility] ER, patient will receive broad-spectrum antibiotics with IV meropenem. Lipase was not checked in the ER as lipase testing was not available. All labs will be repeated here and we will request consultation with General surgery, GI and Infectious Disease. We will see how patient progresses in the next 48-72 hours. REVIEW OF SYSTEMS CONSTITUTIONAL: Reports having chills NEUROLOGICAL: Denies headache, amaurosis fugax, motor weakness, sensory deficit, vertigo/spinning sensation, gait abnormalities, or tremors. ENT: No hearing loss, otalgia, otorrhea, rhinitis, rhinorrhea, hoarseness, or sore throat. CARDIOVASCULAR: Denies any exertional angina, dyspnea on exertion, orthopnea, paroxysmal nocturnal dyspnea, palpitations, life-threatening arrhythmias, claudication. PULMONARY: Denies any shortness of breath, cough, phlegm/sputum, hemoptysis, pleuritic chest pain. SLEEP: Denies morning headaches, daytime somnolence or napping. Denies difficulty falling asleep, staying asleep, waking from sleep. Denies knowledge of snoring. GASTROINTESTINAL: Nausea, vomiting , epigastric abdominal pain GENITOURINARY: Denies frequency, urgency, nocturia, hematuria or incontinence (Storage/Irritative symptoms.) Low urinary stream, straining to void, urinary intermittency or hesitancy, splitting of the voiding stream, terminal dribbling. ENDOCRINOLOGIC: Denies polyuria, polydipsia, polyphagia or heat/cold intolerances. HEMATOLOGIC: Denies thrombophilia/previous clots, or coagulopathy/bleeding disorders. ONCOLOGIC: Denies personal history of malignancy. DERMATOLOGIC: Denies rashes or pruritus. PSYCHIATRIC: Denies any suicidal or homicidal ideation. Denies hallucinations. 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, history of cholelithiasis and cholecystitis in 2019 PAST SURGICAL HISTORY: History of cholecystectomy in 2019, abdominal hernia repair with mesh couple of years ago PAST SOCIAL HISTORY: Denies any active smoking, alcohol consumption, denies any illicit drug use, patient is ambulatory at home and independent with ADLs and IADLs FAMILY HISTORY: Denies any family history of GI disorders of pancreatitis Allergies: Patient reports having to be allergic reaction to penicillin in childhood possibly anaphylaxis Home medications: Patient reports being on Tresiba 80 units in the morning, lisinopril 10 mg daily, Crestor, metformin, patient reports he mealtime insulin of Humalog 30 units Coded Allergies: Penicillins (Verified Allergy, Unknown, 07/28/20) PHYSICAL EXAM GENERAL APPEARANCE: The patient is awake, alert, and oriented, in no acute cardiopulmonary distress. NEUROLOGICAL: Cranial nerves II-XII grossly intact. Motor is 5/5 in bilateral upper and lower extremities proximal to distal. No sensory deficits. HEENT: Face is symmetric. Pupils are equal and reactive. Extraocular movements are intact. NECK: Supple. No JVD. No thyromegaly. No submental, submandibular, pre- /postauricular, occipital or supraclavicular lymphadenopathy. CHEST: Normal chest expansion. No Telemetry. LUNGS: Absence of any rales, rhonchi or any wheezing. CARDIOVASCULAR: Regular. S1 and S2 normal. No appreciable rubs, murmurs or gallops. ABDOMEN: Soft, mild tenderness to palpation of the epigastric area with no rebound or guarding : Deferred. No Sandoval. EXTREMITIES: Non-edematous and not cyanotic. No clubbing. Good capillary refill. SKIN: No skin breakdown. Vital Sign (Last 24 Hours) 06/18/25 18:17 Temp 98.1 Pulse 69 Resp 18 B/P (MAP) 135/79 Pulse Ox 97 O2 Delivery Room Air FiO2 21 LABS: Laboratory: Test 06/18/25 19:40 06/18/25 18:58 Range/Units Whole Blood Glucose 79 70-110 MG/DL White Blood Count 14.2 H 4.8-10.8 K/uL Red Blood Count 5.03 4.50-6.20 MIL/uL Hemoglobin 15.6 14.0-18.0 g/dL Hematocrit 46.0 42-54 % Mean Corpuscular Volume 91.5 79-99 fL Mean Corpuscular Hemoglobin 31.0 27.0-33.0 pg Mean Corpuscular Hemoglobin Concent 33.9 32.0-36.0 g/dL Red Cell Distribution Width 13.3 11.0-15.5 % Platelet Count 212 130-400 K/uL Mean Platelet Volume 9.9 7.5-10.5 fL Immature Granulocyte % (Auto) 0.6 0-1 % Neutrophils (%) (Auto) 76.1 40.0-77.0 % Lymphocytes (%) (Auto) 12.1 L 21.0-51.0 % Monocytes (%) (Auto) 10.3 3.0-13.0 % Eosinophils (%) (Auto) 0.4 0.0-8.0 % Basophils (%) (Auto) 0.5 0.0-5.0 % Neutrophils # (Auto) 10.8 H 1.8-7.7 K/uL Lymphocytes # (Auto) 1.7 1.0-4.8 K/uL Monocytes # (Auto) 1.5 H 0.1-1.0 K/uL Eosinophils # (Auto) 0.06 0.00-0.70 K/uL Basophils # (Auto) 0.07 0.00-0.20 K/uL Absolute Immature Granulocyte (auto 0.09 0-1 K/uL Nucleated Red Blood Cells 0.0 0.0-0.19 % Erythrocyte Sedimentation Rate 15 0-20 MM/HR Sodium Level 136 136-145 mmol/L Potassium Level 4.1 3.5-5.1 mmol/L Chloride Level 100 L 101-111 mmol/L Carbon Dioxide Level 34 H 21-32 mmol/L Blood Urea Nitrogen 22 H 7-18 mg/dL Creatinine 0.7 0.5-1.3 mg/dL Glomerular Filtration Rate Calc 105 >90 mL/min Random Glucose 87 70-105 mg/dL Hemoglobin A1c 7.1 H 4.0-6.0 % Estimated Average Glucose (eAG) 157 H 70-126 mg/dL Total Calcium 8.9 8.5-10.1 mg/dL Magnesium Level 1.90 1.80-2.40 mg/dL Total Bilirubin 1.3 H 0.2-1.0 mg/dL Aspartate Amino Transf (AST/SGOT) 18 10-37 U/L Alanine Aminotransferase (ALT/SGPT) 17 12-78 U/L Alkaline Phosphatase 69 50-136 U/L Lactate Dehydrogenase 119 81-234 U/L Total Creatine Kinase 126 # 21-232 U/L Troponin I High Sensitivity 51.8 4-75 ng/L C-Reactive Protein, Quantitative 82.50 H 0.5-3.0 mg/L Total Protein 7.5 6.0-8.3 g/dL Albumin 3.6 3.5-5.0 g/dL Triglycerides Level 51 30-200 mg/dL Cholesterol Level 151 <200 mg/dL LDL Cholesterol 76 0-99 mg/dL HDL Cholesterol 59 29-71 mg/dL Amylase Level 43 # 25-115 U/L Lipase 49 16-77 U/L Procalcitonin < 0.05 L 0.05-0.5 ng/mL Thyroid Stimulating Hormone (TSH) 1.24 # 0.36-3.74 uIU/mL Current Medications Medications (Trade) Dose Ordered Sig/Kilo Route PRN Reason Start Time Stop Time Status Last Admin Dose Admin Acetaminophen (TYLenol 325MG TAB) 650 mg Q6H PRN PO MILD PAIN (1-3) 06/18/25 19:00 07/18/25 18:59 Albuterol (DUOneb) 1 udvial Q6H PRN IH SHORTNESS OF BREATH 06/18/25 19:00 07/18/25 18:59 Dextrose (D50w) 50 ml AD PRN IV HYPOGLYCEMIA PROTOCOL 06/18/25 20:00 07/18/25 19:59 Diphenhydramine HCl (BENAdryl INJ) 25 mg Q6H PRN IV ITCHING/ rash 06/18/25 19:30 07/18/25 19:29 Glucagon (Glucagon 1mg Kit) 1 mg AD PRN IM HYPOGLYCEMIA PROTOCOL 06/18/25 20:00 07/18/25 19:59 Hydralazine HCl (APRESOLine 20MG INJ) 10 mg Q6H PRN IV ADMINISTER FOR SBP > 170 06/18/25 19:00 07/18/25 18:59 Insulin Human Regular (humuLIN R 100 UNIT/ML 3ML) INSULIN SLIDING SCAL... ACHS SQ 06/18/25 21:00 07/18/25 20:59 Lactated Ringer's 1,000 ml @ 150 mls/hr Q6H40M IV 06/18/25 19:00 07/18/25 18:59 Magnesium Sulfate 50 ml @ 0 mls/hr PROTOCOL IV 06/18/25 19:00 07/18/25 18:59 Meropenem (Merrem 1gm) 1 gm Q8H IVPB 06/18/25 19:30 06/28/25 19:29 Ondansetron HCl (zoFRAN 4MG INJ) 4 mg Q6H PRN IVP NAUSEA/VOMITING 06/18/25 19:00 07/18/25 18:59 Pantoprazole Sodium (PROTonix 40MG INJ) 40 mg DAILY IVP 06/19/25 09:00 07/19/25 08:59 Pharmacy Profile Note (Pharmacy Communication) 1 each ONCE MISC 06/18/25 19:30 06/18/25 19:11 DC Potassium Chloride 100 ml @ 100 mls/hr AD PRN IV POTASSIUM PROTOCOL 06/18/25 19:00 07/18/25 18:59 Potassium Chloride (K-Dur/Klor-Con 20meq) 20 meq AD PRN PO POTASSIUM PROTOCOL 06/18/25 19:00 07/18/25 18:59 Potassium Chloride (KCl 10% Elixir 20meq/15ml) 20 meq AD PRN PO POTASSIUM PROTOCOL 06/18/25 19:00 07/18/25 18:59 Thiamine HCl (Vitamin B-1) 100 mg Q24H IVP 06/18/25 19:00 07/18/25 18:59 DIAGNOSTICS / RADIOLOGY: Patient underwent CT abdomen pelvis without IV contrast [facility] which showed findings of extensive peripancreatic edema and stranding with peripancreatic prominent lymph nodes and fluid tracking to the anterior left pararenal space. Focus of gas is seen in the distal pancreatic body. Impression: Acute pancreatitis. Focus of gas distal pancreas is indeterminate but suspicious. If not contraindicated, consider contrast syndrome and CT abdomen and pelvis to exclude pancreatic necrosis and abscess formation. Indeterminate adrenal gland nodules, patient noted to have indeterminate right adrenal 20 mm nodule in left adrenal 9 mm nodule. Colonic diverticulosis. ASSESSMENT: Acute pancreatitis, POA Rule out necrotizing pancreatitis/pancreatic abscess, POA Leukocytosis, POA History of complicated pancreatitis with necrotizing pancreatitis with pseudoc yst in 2020 Status post cholecystectomy, POA History of Jardiance use as outpatient, POA Bilateral adrenal gland indeterminate nodules, POA ( right adrenal gland measuring 2 cm and left adrenal gland measuring 0.9 cm) History of hypertension, POA Hyperlipidemia, POA Type 2 diabetes mellitus, POA History of abdominal hernia repair with mesh, POA Diverticulosis, POA PLAN: Patient will be admitted to medical-surgical floor under telemetry monitoring Patient will be kept strictly NPO Jardiance we will be stopped which is rarely associated with pancreatitis Patient on noncontrast CT abdomen pelvis from [facility] was found to have severe peripancreatic edema and stranding with some fluid noted in the left pararenal space with focus of gas noted in the distal pancreatic body We will obtain full set of lab today, we will obtain blood cultures, we will check lipase, amylase, CBC, CMP, triglyceride level Patient will receive bolus of NS and we will start LR at 150 mL/hour As necrotizing pancreatitis can not be ruled out, we will start patient on broad-spectrum antibiotics with IV meropenem We will obtain a CT abdomen pelvis with IV contrast tomorrow, pancreatic protocol, to assess for any necrotizing pancreatitis, assess for any fluid collection, rule out any infectious fluid collection Patient's case was discussed with Dr. Jaimes General surgery, appreciate recommendations We will request consultation with GI We will monitor this patient closely with regards to clinical progression due to previous history of complicated pancreatitis in 2020 Appreciate recommendations by Infectious Disease Patient was found to have indeterminate nodules involving the bilateral adrenal gland, we will follow up CT abdomen pelvis with IV contrast for further evaluation of adrenal gland nodule, patient will benefit from outpatient endocrinology evaluation and follow up Patient will be placed on sliding scale insulin a.c. and HS, patient reports taking high-dose Tresiba today of 80 units, patient will be placed on hypoglycemia precautions, we will switch to D5 NS tomorrow if patient continues to remain NPO Labs will be repeated in the morning, we will see how patient progresses in the next 48-72 hours We will keep patient on GI prophylaxis Protonix, DVT prophylaxis with Lovenox Plan of care was discussed with patient and at bedside Date of service: 06/18/2025 Pérez Garcia MD, Advanced Care Planning: Which of the following were discussed: Hospice care: Yes __ No _x_ Therapeutic options: Yes _x_ No __ Advance directives: Yes _x_ No __ Other discussions: Discussed with who?: Patient Voluntary nature of this service was explained to the patient? Yes _x_ No __ Amount of time spent: 20 minutes PÉREZ GARCIA MD Jun 18, 2025 20:11
[2025-06-18 20:32] VITALS: BP 133/72; PULSE 66; RESP 20; TEMP 98.3
[2025-06-19] VITALS (10 sets, daily range): BP systolic 110–142; BP diastolic 63–84; PULSE 58–76; RESP 18–20; TEMP 98–98.7; O2SAT 95–97
--- NOTE | 2025-06-19 02:35 | EKG ---
[facility] Test Date: 2025-06-18 Test Time: 23:27:42 Pat Name: JAH ALICIA Department: [facility] Room: 311 1 Gender: M Rn Unit Manager: [id number] : 1965 Requested By: ROSETTE GUZMAN Order Number: [id number] Reading MD: Court Mackenzie Measurements Intervals [place] Rate: 76 P: 25 TX: 132 QRS: -30 QRSD: 102 T: 21 QT: 396 QTc: 445 Interpretive Statements Normal sinus rhythm Left axis deviation Compared to ECG 09/28/2020 15:14:11 Left-axis deviation now present T-wave abnormality no longer present Electronically Signed On 06-19-2025 20:14:47 [address]T by [address] Mackenzie Please click the below link to view image of tracing.
[2025-06-19] MEDS ORDERED: IOHEXOL 350 MG/ML 100ML INFUS..BTL IV ONE (06:17)
[2025-06-19 06:54] LABS: IMMATURE GRANULOCYTE ABSOLUTE 0.06 K/uL (0-1); NUCLEATED RED BLOOD CELLS 0.0 % (0.0-0.19); PLATELET COUNT (AUTO) 164 K/uL (130-400); RED BLOOD CELL COUNT(AUTO) 4.41 MIL/uL (4.50-6.20); RED CELL DISTRIBUTION WIDTH 13.4 % (11.0-15.5); WHITE BLOOD COUNT (AUTO) 10.3 K/uL (4.8-10.8)
[2025-06-19 07:14] LABS: ASPARTATE AMINOTRANSFERASE 19.0 U/L (10-37); CREATININE 0.7 mg/dL (0.5-1.3); GLOMERULAR FILTR. RATE CALC 105.0 mL/min (>90); GLUCOSE,RANDOM 71.0 mg/dL (70-105); SODIUM SERUM 137.0 mmol/L (136-145); TOTAL PROTEIN, SERUM 6.5 g/dL (6.0-8.3); UREA NITROGEN, BLOOD 20.0 mg/dL (7-18)
[2025-06-19] MEDS ORDERED: ENOXAPARIN SODIUM 40 MG/0.4 ML SYRINGE SQ SCH (09:00)
--- NOTE | 2025-06-19 10:20 | NUR ---
DCP:HOME Pt currently lives at home with his Pebbles Aleman [phone]. pt does not have any DME, home health, or provider services. Pt states that he is able to complete ADLs independently. PCP is Dr. Lunsford and uses [facility] for any RX needs. At [place] pt will want to go home and family can assist with transportation. Addendum: 06/19/25 at 1021 by ANGELA GONZALEZ SS Amended: Links added.
[2025-06-19] MEDS: DEXTROSE 5 % AND 0.9 % NACL 1,000 ML IV SCH (11:52)
--- NOTE | 2025-06-19 11:58 | NUR ---
PATIENT BSL 52. PATIENT IS ASYMPTOMATIC. DENIES FEELING SHAKY OR WEAK. PT REFUSED THE 50 % DEXTROSE INJECTION. ADMINISTERED LR WITH 5%DEXTROSE. WILL CONTINUE TO MONITOR.
--- NOTE | 2025-06-19 12:29 | NUR ---
REASSESSED BSL 77. PATIENT IS RESTING COMFORTABLY.
--- NOTE | 2025-06-19 12:45 | HMCIMG ---
Abdomen and Pelvis CT with contrast Comparison: None Indication:acute pancreatitis, r/o necrotizing pancreatitis/abscess, pancreas protocol Technique: 5 mm thick axial images were obtained through the abdomen and pelvis before and after the administration of 150ml of intravenous contrast . 1.25 mm thick axial images as well as coronal and sagittal reformatted images were also submitted for interpretation. Findings: The visualized portions of the lungs are normal in appearance. The visualized portion of the heart is normal in size without pericardial effusion. The abdominal aorta demonstrates no evidence of focal aneurysmal dilitation or dissection. Post cholecystectomy status of gall bladder . Intrapancreatic - diffuse enlargement with edema. Peripancreatic / extrapancreatic - irregular pancreatic outline, obliterated peripancreatic fat, retroperitoneal edema, fluid in the lesser sac, fluid in the left anterior pararenal space Thickening of inflamed Gerota's fascia, which becomes visible with pancreatic ascites, pleural effusion (seen on basal cuts of the pleural cavity). The liver is normal in size without focal hepatic lesions. No intrahepatic ductal dilatation is seen. The hepatic and portal veins are patent. The common bile duct, spleen, adrenals and kidneys are normal in appearance. No hydronephrosis or radio-opaque calculi are visualized. The urinary bladder is within normal limits. Mild prostatomegaly noted . The colon is normal in appearance and without wall thickening or inflammatory change. No intraperitoneal free air or fluid is visualized. No pathologic lymphadenopathy is seen. There are no osseous or soft tissue abnormalities. Impression: GRADE E ACUTE SEVERE PANCREATITIS WITH A CTSI SCORE OF 8/10 [30- 50 PERCENT NECROSIS} /Johnson
--- NOTE | 2025-06-19 14:35 | PN ---
[facility] PROGRESS NOTE Date of Service: Jun 19, 2025 Time of Service: 14:26 HISTORY OF PRESENT ILLNESS: Date of service: 06/18/2025, patient was seen in [facility] [place] [facility] This is a patient who was transferred from formerly [facility] ER for further treatment and management of acute pancreatitis. This is a 59-year-old male with underlying history of obesity, type 2 diabetes mellitus, hypertension, hyperlipidemia, patient with previous history of pancreatitis in 2020 complicated by necrotizing pancreatitis, history of cholecyst[place] [address] Almanza who presented as a transfer from formerly [facility] Emergency room for further evaluation of pancreatitis. Patient st ates that he was having some [id number] intensity epigastric pain associated with nausea that started yesterday with mild pain radiating to the back. Pain was about 3-4/10 in intensity. Symptoms were nonresolving prompting him to come to the ER today for further evaluation. Reports having some subjective chills as well. He has been doing relatively well since his hospitalization in 2020 and denies any recent hospitalization. Reports that he was hospitalized in [facility] in 2020 for necrotizing pancreatitis with pseudocyst. Patient had a prolonged hospitalization for management of pancreatitis. He also has a history of cholecystectomy due to cholecystitis in July,. Patient denies any history of hypertriglyceridemia, denies any significant alcohol consumption and denies any familial history of pancreatitis. He has been maintained on Jardiance for several years for management of type 2 diabetes mellitus. He is currently maintained on Tresiba 80 units daily and prandial insulin 30 units 3 times a day with meals for management of type 2 diabetes mellitus. On Presentation to the hospital, patient was noted to be afebrile and hemodynamically stable. Patient underwent a CT abdomen pelvis without IV contrast which showed findings of extensive peripancreatic edema with stranding with peripancreatic prominent lymph nodes in fluid tracking to the anterior left pararenal space. Patient was also found to have focus of gas and distal pancreas with necrotizing pancreatitis/pancreatic abscess which could not be ruled out. SUBJECTIVE: 06/19/25: Patient was seen and evaluated in room 311, patient was lying on the bed and denies abdominal pain but rather reports it as abdominal discomfort. patient denies any fever, chills. Patient denies any changes in bladder movement or burning sensation during urination. Patient mentioned that he last passed stool on Thursday. Patient is currently on NPO. Pertinent labs- WBC-10.3, Lipase - 16, amylase-43, Troponin-51, CRP-96.5, TG-51, cholesterol-151 REVIEW OF SYSTEMS CONSTITUTIONAL: Reports having chills NEUROLOGICAL: Denies headache, amaurosis fugax, motor weakness, sensory deficit, vertigo/spinning sensation, gait abnormalities, or tremors. ENT: No hearing loss, otalgia, otorrhea, rhinitis, rhinorrhea, hoarseness, or sore throat. CARDIOVASCULAR: Denies any exertional angina, dyspnea on exertion, orthopnea, paroxysmal nocturnal dyspnea, palpitations, life-threatening arrhythmias, claudication. PULMONARY: Denies any shortness of breath, cough, phlegm/sputum, hemoptysis, pleuritic chest pain. SLEEP: Denies morning headaches, daytime somnolence or napping. Denies difficulty falling asleep, staying asleep, waking from sleep. Denies knowledge of snoring. GASTROINTESTINAL: Nausea, vomiting , epigastric abdominal pain GENITOURINARY: Denies frequency, urgency, nocturia, hematuria or incontinence (Storage/Irritative symptoms.) Low urinary stream, straining to void, urinary intermittency or hesitancy, splitting of the voiding stream, terminal dribbling. ENDOCRINOLOGIC: Denies polyuria, polydipsia, polyphagia or heat/cold intolerances. HEMATOLOGIC: Denies thrombophilia/previous clots, or coagulopathy/bleeding disorders. ONCOLOGIC: Denies personal history of malignancy. DERMATOLOGIC: Denies rashes or pruritus. PSYCHIATRIC: Denies any suicidal or homicidal ideation. Denies hallucinations. PHYSICAL EXAM GENERAL APPEARANCE: The patient is awake, alert, and oriented, in no acute cardiopulmonary distress. NEUROLOGICAL: Cranial nerves II-XII grossly intact. Motor is 5/5 in bilateral upper and lower extremities proximal to distal. No sensory deficits. HEENT: Face is symmetric. Pupils are equal and reactive. Extraocular movements are intact. NECK: Supple. No JVD. No thyromegaly. No submental, submandibular, pre- /postauricular, occipital or supraclavicular lymphadenopathy. CHEST: Normal chest expansion. No Telemetry. LUNGS: Absence of any rales, rhonchi or any wheezing. CARDIOVASCULAR: Regular. S1 and S2 normal. No appreciable rubs, murmurs or gallops. ABDOMEN: Soft, mild tenderness to palpation of the epigastric area with no rebound or guarding : Deferred. No Sandoval. EXTREMITIES: Non-edematous and not cyanotic. No clubbing. Good capillary refill. SKIN: No skin breakdown. Vital Signs (last 8hr) Date Time Temp Pulse Resp B/P (MAP) Pulse Ox O2 Delivery O2 Flow Rate FiO2 06/19/25 12:00 98.2 63 20 126/73 95 Room Air 06/19/25 09:48 97 Room Air* 0 21 06/19/25 08:00 98.1 61 19 142/68 97 Room Air 06/19/25 06:46 65 18 N/A Room Air 21 LABS: Laboratory: Test 06/19/25 12:28 06/19/25 06:40 06/18/25 18:58 Range/Units Whole Blood Glucose 77 70-110 MG/DL White Blood Count 10.3 # 4.8-10.8 K/uL Red Blood Count 4.41 L 4.50-6.20 MIL/uL Hemoglobin 13.6 L 14.0-18.0 g/dL Hematocrit 42.0 42-54 % Mean Corpuscular Volume 95.2 79-99 fL Mean Corpuscular Hemoglobin 30.8 27.0-33.0 pg Mean Corpuscular Hemoglobin Concent 32.4 32.0-36.0 g/dL Red Cell Distribution Width 13.4 11.0-15.5 % Platelet Count 164 130-400 K/uL Mean Platelet Volume 9.8 7.5-10.5 fL Immature Granulocyte % (Auto) 0.6 0-1 % Neutrophils (%) (Auto) 76.3 40.0-77.0 % Lymphocytes (%) (Auto) 11.9 L 21.0-51.0 % Monocytes (%) (Auto) 10.3 3.0-13.0 % Eosinophils (%) (Auto) 0.5 0.0-8.0 % Basophils (%) (Auto) 0.4 0.0-5.0 % Neutrophils # (Auto) 7.8 H 1.8-7.7 K/uL Lymphocytes # (Auto) 1.2 1.0-4.8 K/uL Monocytes # (Auto) 1.1 H 0.1-1.0 K/uL Eosinophils # (Auto) 0.05 0.00-0.70 K/uL Basophils # (Auto) 0.04 0.00-0.20 K/uL Absolute Immature Granulocyte (auto 0.06 0-1 K/uL Nucleated Red Blood Cells 0.0 0.0-0.19 % Sodium Level 137 136-145 mmol/L Potassium Level 4.5 3.5-5.1 mmol/L Chloride Level 102 101-111 mmol/L Carbon Dioxide Level 29 21-32 mmol/L Blood Urea Nitrogen 20 H 7-18 mg/dL Creatinine 0.7 0.5-1.3 mg/dL Glomerular Filtration Rate Calc 105 >90 mL/min Random Glucose 71 70-105 mg/dL Total Calcium 8.6 8.5-10.1 mg/dL Magnesium Level 1.90 1.80-2.40 mg/dL Total Bilirubin 1.2 H 0.2-1.0 mg/dL Aspartate Amino Transf (AST/SGOT) 19 10-37 U/L Alanine Aminotransferase (ALT/SGPT) 23 # 12-78 U/L Alkaline Phosphatase 59 50-136 U/L C-Reactive Protein, Quantitative 96.50 H 0.5-3.0 mg/L Total Protein 6.5 6.0-8.3 g/dL Albumin 2.9 L 3.5-5.0 g/dL Lipase 16 16-77 U/L Erythrocyte Sedimentation Rate 15 0-20 MM/HR Hemoglobin A1c 7.1 H 4.0-6.0 % Estimated Average Glucose (eAG) 157 H 70-126 mg/dL Lactate Dehydrogenase 119 81-234 U/L Total Creatine Kinase 126 # 21-232 U/L Troponin I High Sensitivity 51.8 4-75 ng/L Triglycerides Level 51 30-200 mg/dL Cholesterol Level 151 <200 mg/dL LDL Cholesterol 76 0-99 mg/dL HDL Cholesterol 59 29-71 mg/dL Amylase Level 43 # 25-115 U/L Procalcitonin < 0.05 L 0.05-0.5 ng/mL Thyroid Stimulating Hormone (TSH) 1.24 # 0.36-3.74 uIU/mL Current Medications Medications (Trade) Dose Ordered Sig/Kilo Route PRN Reason Start Time Stop Time Status Last Admin Dose Admin Acetaminophen (TYLenol 325MG TAB) 650 mg Q6H PRN PO MILD PAIN (1-3) 06/18/25 19:00 07/18/25 18:59 Albuterol (DUOneb) 1 udvial Q6H PRN IH SHORTNESS OF BREATH 06/18/25 19:00 07/18/25 18:59 Aspirin (Aspirin 81mg Ec Tab) 81 mg DAILY PO 06/20/25 09:00 07/20/25 08:59 Atorvastatin Calcium (LIPItor 20MG) 20 mg HS PO 06/19/25 21:00 07/19/25 20:59 Dextrose (D50w) 50 ml AD PRN IV HYPOGLYCEMIA PROTOCOL 06/18/25 20:00 07/18/25 19:59 Dextrose/Sodium Chloride 1,000 ml @ 150 mls/hr Q6H40M IV 06/19/25 12:00 07/19/25 11:59 06/19/25 11:52 150 MLS/HR Diphenhydramine HCl (BENAdryl INJ) 25 mg Q6H PRN IV ITCHING/ rash 06/18/25 19:30 07/18/25 19:29 Enoxaparin Sodium (Lovenox) 40 mg DAILY SQ 06/19/25 09:00 06/19/25 08:36 DC Enoxaparin Sodium (Lovenox) 40 mg HS SQ 06/19/25 21:00 07/19/25 08:59 Glucagon (Glucagon 1mg Kit) 1 mg AD PRN IM HYPOGLYCEMIA PROTOCOL 06/18/25 20:00 07/18/25 19:59 Hydralazine HCl (APRESOLine 20MG INJ) 10 mg Q6H PRN IV ADMINISTER FOR SBP > 170 06/18/25 19:00 07/18/25 18:59 Hydromorphone HCl (DiLAUDid 0.5MG INJ) 0.5 mg Q6H PRN IVP SEVERE PAIN (7-10) 06/18/25 20:30 06/23/25 20:29 06/19/25 01:02 0.5 MG Insulin Human Regular (humuLIN R 100 UNIT/ML 3ML) INSULIN SLIDING SCAL... ACHS SQ 06/18/25 21:00 07/18/25 20:59 Ketorolac Tromethamine (toRADol) 15 mg Q12H PRN IV MODERATE PAIN (4-6) 06/18/25 20:30 06/21/25 20:30 Lactated Ringer's 1,000 ml @ 150 mls/hr Q6H40M IV 06/18/25 19:00 06/19/25 11:44 DC 06/19/25 01:02 150 MLS/HR Lisinopril (Prinivil 10mg) 10 mg DAILY PO 06/20/25 09:00 07/20/25 08:59 Magnesium Sulfate 50 ml @ 0 mls/hr PROTOCOL IV 06/18/25 19:00 07/18/25 18:59 Meropenem (Merrem 1gm) 1 gm Q8H IVPB 06/18/25 19:30 06/28/25 19:29 06/19/25 11:45 1 GM Ondansetron HCl (zoFRAN 4MG INJ) 4 mg Q6H PRN IVP NAUSEA/VOMITING 06/18/25 19:00 07/18/25 18:59 06/19/25 01:02 4 MG Pantoprazole Sodium (PROTonix 40MG INJ) 40 mg DAILY IVP 06/19/25 09:00 07/19/25 08:59 06/19/25 11:45 40 MG Pharmacy Profile Note (Pharmacy Communication) 1 each ONCE MISC 06/18/25 19:30 06/18/25 19:11 DC Potassium Chloride 100 ml @ 100 mls/hr AD PRN IV POTASSIUM PROTOCOL 06/18/25 19:00 07/18/25 18:59 Potassium Chloride (K-Dur/Klor-Con 20meq) 20 meq AD PRN PO POTASSIUM PROTOCOL 06/18/25 19:00 07/18/25 18:59 Potassium Chloride (KCl 10% Elixir 20meq/15ml) 20 meq AD PRN PO POTASSIUM PROTOCOL 06/18/25 19:00 07/18/25 18:59 Thiamine HCl (Vitamin B-1) 100 mg Q24H IVP 06/18/25 19:00 07/18/25 18:59 06/18/25 20:04 100 MG DIAGNOSTICS / RADIOLOGY: [address] [address] IMAGING REPORT Addendum PATIENT: RAAD ALICIA MR#: [id number] : 1965 SEX: M AGE: 59 LOCATION: [facility]BH ORDER 2300 STATUS: ADM IN REPORT#: [id number] SERVICE 0600 REASON: acute pancreatitis, r/o necrotizing pancreatitis/abscess, pancreas protocol ORDERING PHYSICIAN: PÉREZ GUZMAN MD PROCEDURE: ABD PEL W - CT ABDOMEN/PELVIS W/CONTRAST ADDENDUM REPORT ADDENDUM: Results were shared by telephone at 13:59 pm on 06-19-25 and acknowledged by Pérez Bond /[facility] Abdomen and Pelvis CT with contrast Comparison: None Indication:acute pancreatitis, r/o necrotizing pancreatitis/abscess, pancreas protocol Technique: 5 mm thick axial images were obtained through the abdomen and pelvis before and after the administration of 150ml of intravenous contrast . 1.25 mm thick axial images as well as coronal and sagittal reformatted images were also submitted for interpretation. Findings: The visualized portions of the lungs are normal in appearance. The visualized portion of the heart is normal in size without pericardial effusion. The abdominal aorta demonstrates no evidence of focal aneurysmal dilitation or dissection. Post cholecystectomy status of gall bladder . Intrapancreatic - diffuse enlargement with edema. Peripancreatic / extrapancreatic - irregular pancreatic outline, obliterated peripancreatic fat, retroperitoneal edema, fluid in the lesser sac, fluid in the left anterior pararenal space Thickening of inflamed Gerota's fascia, which becomes visible with pancreatic ascites, pleural effusion (seen on basal cuts of the pleural cavity). The liver is normal in size without focal hepatic lesions. No intrahepatic ductal dilatation is seen. The hepatic and portal veins are patent. The common bile duct, spleen, adrenals and kidneys are normal in appearance. No hydronephrosis or radio-opaque calculi are visualized. The urinary bladder is within normal limits. Mild prostatomegaly noted . The colon is normal in appearance and without wall thickening or inflammatory change. No intraperitoneal free air or fluid is visualized. No pathologic lymphadenopathy is seen. There are no osseous or soft tissue abnormalities. Impression: GRADE E ACUTE SEVERE PANCREATITIS WITH A CTSI SCORE OF 8/10 [30- 50 PERCENT NECROSIS} /[facility] DICTATED BY: STEF BATEMAN MD DATE: 06/19/25 140 ELECTRONICALLY SIGNED BY: DATE: Abdomen and Pelvis CT with contrast Comparison: None Indication:acute pancreatitis, r/o necrotizing pancreatitis/abscess, pancreas protocol Technique: 5 mm thick axial images were obtained through the abdomen and pelvis before and after the administration of 150ml of intravenous contrast . 1.25 mm thick axial images as well as coronal and sagittal reformatted images were also submitted for interpretation. Findings: The visualized portions of the lungs are normal in appearance. The visualized portion of the heart is normal in size without pericardial effusion. The abdominal aorta demonstrates no evidence of focal aneurysmal dilitation or dissection. Post cholecystectomy status of gall bladder . Intrapancreatic - diffuse enlargement with edema. Peripancreatic / extrapancreatic - irregular pancreatic outline, obliterated peripancreatic fat, retroperitoneal edema, fluid in the lesser sac, fluid in the left anterior pararenal space Thickening of inflamed Gerota's fascia, which becomes visible with pancreatic ascites, pleural effusion (seen on basal cuts of the pleural cavity). The liver is normal in size without focal hepatic lesions. No intrahepatic ductal dilatation is seen. The hepatic and portal veins are patent. The common bile duct, spleen, adrenals and kidneys are normal in appearance. No hydronephrosis or radio-opaque calculi are visualized. The urinary bladder is within normal limits. Mild prostatomegaly noted . The colon is normal in appearance and without wall thickening or inflammatory change. No intraperitoneal free air or fluid is visualized. No pathologic lymphadenopathy is seen. There are no osseous or soft tissue abnormalities. Impression: GRADE E ACUTE SEVERE PANCREATITIS WITH A CTSI SCORE OF 8/10 [30- 50 PERCENT NECROSIS} /[facility] DICTATED BY: STEF BATEMAN MD DATE: 06/19/25 1344 ELECTRONICALLY SIGNED BY: STEF BATEMAN MD DATE: 06/19/25 134 ASSESSMENT: Acute pancreatitis, POA Rule out necrotizing pancreatitis/pancreatic abscess, POA Leukocytosis, POA History of complicated pancreatitis with necrotizing pancreatitis with pseudocyst in 2020 Status post cholecystectomy, POA History of Jardiance use as outpatient, POA Bilateral adrenal gland indeterminate nodules, POA ( right adrenal gland measuring 2 cm and left adrenal gland measuring 0.9 cm) History of hypertension, POA Hyperlipidemia, POA Type 2 diabetes mellitus, POA History of abdominal hernia repair with mesh, POA Diverticulosis, POA PLAN: Acute pancreatitis, POA * WBC trends -14.2>10.3, Lipase -16, amylase-43, Troponin-51, CRP-96.5, TG-51, cholesterol-151, Total bilirubin-1.2 * CT abdomen was ordered results show - Grade E Acute Severe Pancreatitis With CTSI Score Of 8/10 [30- 50 PERCENT NECROSIS] with Fluid in the left anterior pararenal space. * Abdominal Ultrasound was done, awaiting results. * General surgery was consulted, will follow their recommendations * GI was consulted, will follow their recommendations * Infectious diseases was consulted, will follow their recommendations. * Endocrinology was consulted, will follow their recommendations. * Currently on Meropenem(day 2) * Jardiance was stopped, suspecting cause of pancreatitis. * For pain management he is on Dilaudid 0.5mg PRN, Toradol 15mg PRN, Tylenol 650mg PRN * Currently on NPO. * H/O necrotizing pancreatitis, H/O cholecystectomy will monitor closely. * Will monitor with daily labs. Supportive measures: * GI prophylaxis Protonix * DVT prophylaxis with Lovenox ATTESTATION BY PHYSICIAN I have seen and examined the patient. I reviewed the documentation, medical decision making, and treatment plan as noted by the resident physician above. I agree with the findings and plan of care. Raad Reed MD, SHAJI MD Jun 19, 2025 14:35
--- NOTE | 2025-06-19 15:57 | CONS ---
CONSULT NOTE: Consulting physician: Dr. Garcia Consulting service: General surgery Reason for consultation: History of cholecystectomy with pancreatitis History of present illness: This is a 59-year-old male known to our practice after undergoing cholecystectomy five years prior that has been consulted back to our office after presenting to the hospital with concerns of continued nagging discomfort associated with the his pancreatitis. Patient reports that he has been following a pancreatic specialist in [place]. Patient presented because he continues to have this discomfort that he rates a 2/10. On admission lipase unremarkable. Imaging performed concerning for grade E acute severe pancreatitis with a CT SI score of 8/10. Patient's physical exam not very remarkable but patient reporting discomfort. Patient currently NPO. Medical history: History of cholecystectomy in 2019, abdominal hernia repair with mesh couple of years ago PAST SOCIAL HISTORY: Denies any active smoking, alcohol consumption, denies any illicit drug use, patient is ambulatory at home and independent with ADLs and IADLs FAMILY HISTORY: Denies any family history of GI disorders of pancreatitis Allergies: Patient reports having to be allergic reaction to penicillin in childhood possibly anaphylaxis Home medications: Patient reports being on Tresiba 80 units in the morning, li sinopril 10 mg daily, Crestor, metformin, patient reports he mealtime insulin of Humalog 30 units Coded Allergies: Penicillins (Verified Allergy, Unknown, 07/28/20) Review of systems: General: No Fever, No Chills, No Night Sweats, No Fatigue, No Malaise, No Appetite, No Other HEENT: No Head Aches, No Visual Changes, No Eye Pain, No Ear Pain, No Dysphasia, No Sinus Congestion, No Post Nasal Drip, No Sore Throat, No Other Pulmonary: No Dyspnea, No Cough, No Pleuritic Chest Pain, No Other Cardiovascular: No: Chest Pain, Palpitations, Orthopnea, Paroxysmal No Dyspnea, Edema, Lt Headedness, Other Gastrointestinal: No: Nausea, Vomiting, Diarrhea, Constipation, Melena, Hematochezia, Other Genitourinary: No Dysuria, No Frequency, No Incontinence, No Hematuria, No Retention, No Other Musculoskeletal: No: other, neck pain, shoulder pain, arm pain, back pain, hand pain, leg pain, foot pain Skin: No Urticaria, No Rash, No Other Neurological: No: Weakness, Numbness, Incoordination, Change in speech, Confu ya, Seizures, Other Physical exam: General: Awake alert and oriented Heart: Regular rate and rhythm} Lungs: Clear to auscultation no distress Abdomen: [Soft, nontender, nondistended Assessment: This is a 59-year-old male with concerns of acute pancreatitis with a history cholecystectomy Plan: This point in time recommendation will be for MRCP to rule out any potentially retained stone within the common bile duct Repeat lipase tomorrow Patient to remain NPO No immediate surgical intervention at this time Continue with the IV fluids and IV antibiotics Dr. Jaimes to be updated in patient's status Surgical case has been discussed with my supervising physician in the above plan was formulated and agreed upon Supervising physicians evaluation the patient be done within next 24 hours We appreciate the hospitalist team for us to participate in patient's care. Greater than 55 minutes of time spent patient, reviewing chart, working on documentation CARSON ALICIA Jr. PAC Jun 19, 2025 15:57
--- NOTE | 2025-06-19 16:07 | CONS ---
CONSULT NOTE: Endocrinology Consult Chief complaint:pancreatitis Reason for consult:uncontrolled dm-2 DOS:06/19/25 HISTORY OF PRESENT ILLNESS: This is a 59-year-old male with underlying history of obesity, type 2 diabetes mellitus, hypertension, hyperlipidemia, patient with previous history of pancreatitis in 2020 complicated by necrotizing pancreatitis, history of cholecystectomy [place] [address] Almanza who presented as a transfer from [facility] Emergency room for further evaluation of pancreatitis. Patient reports [id number] intensity epigastric pain associated with nausea that started 2 days ago with mild pain radiating to the back. Pain was about 3-4/10 in intensity. Symptoms were nonresolving prompting him to come to the ER today for further evaluation. Reports having some subjective chills as well. He has been doing relatively well since his hospitalization in 2020 and denies any recent hospitalization. Reports that he was hospitalized in [facility] in 2020 for necrotizing pancreatitis with pseudocyst. Patient had a prolonged hospitalization for management of pancreatitis. He also has a history of cholecystectomy due to cholecystitis in July,. Patient denies any history of hypertriglyceridemia, denies any significant alcohol consumption and denies any familial history of pancreatitis. He has been maintained on Jardiance for several years for management of type 2 diabetes mellitus. He is currently maintained on Tresiba 80 units daily and prandial insulin 30 units 3 times a day with meals for management of type 2 diabetes mellitus. On Presentation to the hospital, patient was noted to be afebrile and hemodynamically stable. Patient underwent a CT abdomen pelvis without IV contrast which showed findings of extensive peripancreatic edema with stranding with peripancreatic prominent lymph nodes in fluid tracking to the anterior left pararenal space. Patient was also found to have focus of gas and distal pancreas with necrotizing pancreatitis/pancreatic abscess which could not be ruled out. Patient will be admitted under hospitalist service. Patient will be kept NPO and will receive aggressive IV fluid resuscitation. [place] [id number] on labs in [facility], patient will receive broad-spectrum antibiotics with IV meropenem. Home diabetic regimen: tresiba 80 units daily, novolog 30 units qac before meals, jardiance 2 5 mg daily, actos 30 mg daily and metformin 1000 mg bid, Hba1c 7.1% .. REVIEW OF SYSTEMS CONSTITUTIONAL: normal. NEUROLOGICAL: Denies headache, amaurosis fugax, motor weakness, sensory deficit, vertigo/spinning sensation, gait abnormalities, or tremors. ENT: No hearing loss, otalgia, otorrhea, rhinitis, rhinorrhea, hoarseness, or sore throat. CARDIOVASCULAR: Denies any exertional angina, dyspnea on exertion, orthopnea, paroxysmal nocturnal dyspnea, palpitations, life-threatening arrhythmias, claudication. PULMONARY: Denies any shortness of breath, cough, phlegm/sputum, hemoptysis, pleuritic chest pain. SLEEP: Denies morning headaches, daytime somnolence or napping. Denies difficulty falling asleep, staying asleep, waking from sleep. Denies knowledge of snoring. GASTROINTESTINAL: Nausea, vomiting , epigastric abdominal pain-improving GENITOURINARY: Denies frequency, urgency, nocturia, hematuria or incontinence (Storage/Irritative symptoms.) Low urinary stream, straining to void, urinary intermittency or hesitancy, splitting of the voiding stream, terminal dribbling. ENDOCRINOLOGIC: Denies polyuria, polydipsia, polyphagia or heat/cold intolerances. HEMATOLOGIC: Denies thrombophilia/previous clots, or coagulopathy/bleeding disorders. ONCOLOGIC: Denies personal history of malignancy. DERMATOLOGIC: Denies rashes or pruritus. PSYCHIATRIC: Denies any suicidal or homicidal ideation. Denies hallucinations. 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, history of cholelithiasis and cholecystitis in 2019 PAST SURGICAL HISTORY: History of cholecystectomy in 2020, abdominal hernia repair with mesh couple of years ago PAST SOCIAL HISTORY: Denies any active smoking, alcohol consumption, denies any illicit drug use, patient is ambulatory at home and independent with ADLs and IADLs FAMILY HISTORY: Denies any family history of GI disorders of pancreatitis Allergies: Patient reports having to be allergic reaction to penicillin in childhood possibly anaphylaxis Home medications: Patient reports being on Tresiba 80 units in the morning, lisinopril 10 mg daily, Crestor, metformin, patient reports he mealtime insulin of Humalog 30 units Coded Allergies: Penicillins (Verified Allergy, Unknown, 07/28/20) PHYSICAL EXAM GENERAL APPEARANCE: The patient is awake, alert, and oriented, in no acute cardiopulmonary distress. NEUROLOGICAL: Cranial nerves II-XII grossly intact. Motor is 5/5 in bilateral upper and lower extremities proximal to distal. No sensory deficits. HEENT: Face is symmetric. Pupils are equal and reactive. Extraocular movements are intact. NECK: Supple. No JVD. No thyromegaly. No submental, submandibular, pre- /postauricular, occipital or supraclavicular lymphadenopathy. CHEST: Normal chest expansion. No Telemetry. LUNGS: Absence of any rales, rhonchi or any wheezing. CARDIOVASCULAR: Regular. S1 and S2 normal. No appreciable rubs, murmurs or gallops. ABDOMEN: Soft, mild tenderness to palpation of the epigastric area with no rebound or guarding : Deferred. No Sandoval. EXTREMITIES: Non-edematous and not cyanotic. No clubbing. Good capillary refill. SKIN: No skin breakdown. DIAGNOSTICS / RADIOLOGY: Patient underwent CT abdomen pelvis without IV contrast in [facility] which showed findings of extensive peripancreatic edema and stranding with per ipancreatic prominent lymph nodes and fluid tracking to the anterior left pararenal space. Focus of gas is seen in the distal pancreatic body. Impression: Acute pancreatitis. Focus of gas distal pancreas is indeterminate but suspicious. If not contraindicated, consider contrast syndrome and CT abdomen and pelvis to exclude pancreatic necrosis and abscess formation. Indeterminate adrenal gland nodules, patient noted to have indeterminate right adrenal 20 mm nodule in left adrenal 9 mm nodule. Colonic diverticulosis. ASSESSMENT: Acute pancreatitis, POA unclear etiology. s/p cholecystectomy, triglyceride is normal. denies alcohol use. off ozempic for 3 years. uncontrolled DM-2, POA Home diabetic regimen: tresiba 80 units daily, novolog 30 units qac before meals, jardiance 2 5 mg daily, actos 30 mg daily and metformin 1000 mg bid, Hba1c 7.1% glucose runs less than 180 mg/dl. I saw this patient recently in clinic in 03/2025 Rule out necrotizing pancreatitis/pancreatic abscess, POA Leukocytosis, POA History of complicated pancreatitis with necrotizing pancreatitis with pseudocyst in 2020 Status post cholecystectomy, POA History of Jardiance use as outpatient, POA Bilateral adrenal gland indeterminate nodules, POA ( right adrenal gland measuring 2 cm and left adrenal gland measuring 0.9 cm) History of hypertension, POA Hyperlipidemia, POA Type 2 diabetes mellitus, POA History of abdominal hernia repair with mesh, POA Diverticulosis, POA PLAN: start Lantus 20 units daily and adjust for fasting glucose. start Regular insulin before meals if daytime hyperglycemia. Continue medium dose sliding scale insulin. Monitor glucose q x 6 hourly. Continue carb consistent diet. Keep glucose less than 180 mg/dl. patient is npo. Thanks for allowing me to participate in patient care and will continue to follow up. Vital Signs 06/19/25 06/19/25 09:48 12:00 Temp 98.2 Pulse 63 Resp 20 B/P (MAP) 126/73 Pulse Ox 95 O2 Delivery Room Air O2 Flow Rate 0 FiO2 21 Hematology Labs: Test 06/19/25 06:40 06/18/25 18:58 Range/Units White Blood Count 10.3 # 4.8-10.8 K/uL Red Blood Count 4.41 L 4.50-6.20 MIL/uL Hemoglobin 13.6 L 14.0-18.0 g/dL Hematocrit 42.0 42-54 % Mean Corpuscular Volume 95.2 79-99 fL Mean Corpuscular Hemoglobin 30.8 27.0-33.0 pg Mean Corpuscular Hemoglobin Concent 32.4 32.0-36.0 g/dL Red Cell Distribution Width 13.4 11.0-15.5 % Platelet Count 164 130-400 K/uL Mean Platelet Volume 9.8 7.5-10.5 fL Immature Granulocyte % (Auto) 0.6 0-1 % Neutrophils (%) (Auto) 76.3 40.0-77.0 % Lymphocytes (%) (Auto) 11.9 L 21.0-51.0 % Monocytes (%) (Auto) 10.3 3.0-13.0 % Eosinophils (%) (Auto) 0.5 0.0-8.0 % Basophils (%) (Auto) 0.4 0.0-5.0 % Neutrophils # (Auto) 7.8 H 1.8-7.7 K/uL Lymphocytes # (Auto) 1.2 1.0-4.8 K/uL Monocytes # (Auto) 1.1 H 0.1-1.0 K/uL Eosinophils # (Auto) 0.05 0.00-0.70 K/uL Basophils # (Auto) 0.04 0.00-0.20 K/uL Absolute Immature Granulocyte (auto 0.06 0-1 K/uL Nucleated Red Blood Cells 0.0 0.0-0.19 % Erythrocyte Sedimentation Rate 15 0-20 MM/HR Chemistry Labs: Test 06/19/25 12:28 06/19/25 06:40 06/18/25 18:58 Range/Units Whole Blood Glucose 77 70-110 MG/DL Sodium Level 137 136-145 mmol/L Potassium Level 4.5 3.5-5.1 mmol/L Chloride Level 102 101-111 mmol/L Carbon Dioxide Level 29 21-32 mmol/L Blood Urea Nitrogen 20 H 7-18 mg/dL Creatinine 0.7 0.5-1.3 mg/dL Glomerular Filtration Rate Calc 105 >90 mL/min Random Glucose 71 70-105 mg/dL Total Calcium 8.6 8.5-10.1 mg/dL Magnesium Level 1.90 1.80-2.40 mg/dL Total Bilirubin 1.2 H 0.2-1.0 mg/dL Aspartate Amino Transf (AST/SGOT) 19 10-37 U/L Alanine Aminotransferase (ALT/SGPT) 23 # 12-78 U/L Alkaline Phosphatase 59 50-136 U/L C-Reactive Protein, Quantitative 96.50 H 0.5-3.0 mg/L Total Protein 6.5 6.0-8.3 g/dL Albumin 2.9 L 3.5-5.0 g/dL Lipase 16 16-77 U/L Hemoglobin A1c 7.1 H 4.0-6.0 % Estimated Average Glucose (eAG) 157 H 70-126 mg/dL Lactate Dehydrogenase 119 81-234 U/L Total Creatine Kinase 126 # 21-232 U/L Troponin I High Sensitivity 51.8 4-75 ng/L Triglycerides Level 51 30-200 mg/dL Cholesterol Level 151 <200 mg/dL LDL Cholesterol 76 0-99 mg/dL HDL Cholesterol 59 29-71 mg/dL Amylase Level 43 # 25-115 U/L Procalcitonin < 0.05 L 0.05-0.5 ng/mL Thyroid Stimulating Hormone (TSH) 1.24 # 0.36-3.74 uIU/mL Current Medications Medications (Trade) Dose Ordered Sig/Kilo Route Start Time Stop Time Status Last Admin Dose Admin Aspirin (Aspirin 81mg Ec Tab) 81 mg DAILY PO 06/20/25 09:00 07/20/25 08:59 Atorvastatin Calcium (LIPItor 20MG) 20 mg HS PO 06/19/25 21:00 07/19/25 20:59 Dextrose/Sodium Chloride 1,000 ml @ 150 mls/hr Q6H40M IV 06/19/25 12:00 07/19/25 11:59 06/19/25 11:52 150 MLS/HR Enoxaparin Sodium (Lovenox) 40 mg DAILY SQ 06/19/25 09:00 06/19/25 08:36 DC Enoxaparin Sodium (Lovenox) 40 mg HS SQ 06/19/25 21:00 07/19/25 08:59 Insulin Human Regular (humuLIN R 100 UNIT/ML 3ML) INSULIN SLIDING SCAL... ACHS SQ 06/18/25 21:00 07/18/25 20:59 Lactated Ringer's 1,000 ml @ 150 mls/hr Q6H40M IV 06/18/25 19:00 06/19/25 11:44 DC 06/19/25 01:02 150 MLS/HR Lisinopril (Prinivil 10mg) 10 mg DAILY PO 06/20/25 09:00 07/20/25 08:59 Magnesium Sulfate 50 ml @ 0 mls/hr PROTOCOL IV 06/18/25 19:00 07/18/25 18:59 Meropenem (Merrem 1gm) 1 gm Q8H IVPB 06/18/25 19:30 06/28/25 19:29 06/19/25 11:45 1 GM Pantoprazole Sodium (PROTonix 40MG INJ) 40 mg DAILY IVP 06/19/25 09:00 07/19/25 08:59 06/19/25 11:45 40 MG Pharmacy Profile Note (Pharmacy Communication) 1 each ONCE MISC 06/18/25 19:30 06/18/25 19:11 DC Thiamine HCl (Vitamin B-1) 100 mg Q24H IVP 06/18/25 19:00 07/18/25 18:59 06/18/25 20:04 100 MG JESSIE JALLOH MD Jun 19, 2025 16:07
--- NOTE | 2025-06-19 16:39 | CONS ---
GASTROENTEROLOGY CONSULTATION NOTE Date of Consultation: Jun 19, 2025 Time of Consultation: 16:36 History of Present Illness: [ 59-year-old male patient with past medical history for Type 2 diabetes, hypertension, and hyperlipidemia, obesity, previous history of cholecystectomy in 2019, and previous history of necrotizing pancreatitis in , who was transferred to the emergency room for evaluation of pancreatitis. Patient with complaints of epigastric pain associated with nausea. Initial WBC of 14.2 has trended down to 10.3, hemoglobin 15.6 trended down to 13.6, platelets 164. Chemistries significant for BUN of 20, total bilirubin of 1.2, AST ALT and alkaline phosphatase are normal. CRP of 96.5 PermCath for your albumin 2.9, lipase 16. CT of abdomen and pelvis with IV contrast findings form 380 acute severe pancreatitis with CTSI score 8/10 [30-50% necrosis. Patient is pending abdominal ultrasound and MRI MRCP. On exam, patient is a,a,&o x 3 in no acute distress. His respirations are unlabored. BBS are clear. Abdomen is soft and not distended. He states his LUQ pain that had begun on 06/17/25 has subsided. He denies drinking alcohol. He reports taking mushrooms from [place] for weight loss but is unaware of the name. Inform we will await for abd us and MRi MRCP exam. ] Review of Systems: CONSTITUTIONAL: No malaise or change in sensation of wellbeing. ENMT: No rhinorrhea, otorrhea, sinus pain, ear ache. CARDIOVASCULAR: No angina, palpitations, orthopnea or paroxysmal dyspnea. RESPIRATORY: No SOB. GASTROINTESTINAL: No abdominal pain, nausea, vomiting, diarrhea, hematemesis, melena or change in the patient's habitual bowel movements consistency/number. GENITOURINARY: No dysuria, hematuria or change in bladder continence. MUSCULOSKELETAL: No new muscle pain or decrease in muscular strength. No new joint swelling, redness or tenderness. SKIN: No new rash. Past Medical History: Type 2 diabetes mellitus, hypertension, hyperlipidemia, obesity, history of necr otizing pancreatitis in 2020 complicated by pancreatic pseudocyst, history of cholelithiasis and cholecystitis in 2019 PAST SURGICAL HISTORY: History of cholecystectomy in 2019, abdominal hernia repair with mesh couple of years ago PAST SOCIAL HISTORY: Denies any active smoking, alcohol consumption, denies any illicit drug use, patient is ambulatory at home and independent with ADLs and IADLs FAMILY HISTORY: Denies any family history of GI disorders of pancreatitis Coded Allergies: Penicillins (Verified Allergy, Unknown, 07/28/20) Physical Exam: GEN: Awake, alert, oriented in person, time and place, and in no acute distress. HEENT: No rhinorrhea. Oral mucosa is pink, moist and within normal limits. CHEST: Lung auscultation revealed normal breath sounds bilaterally. CARDIAC:Heart sounds are regular. ABD: Soft, non-tender and not distended. No peritoneal signs on palpation. Normal bowel sounds. Last bm 06/17/25 EXT: No cyanosis or clubbing. No edema. SKIN: Intact. No rashes. NEURO: Alert and oriented to name, place and person.No focal motor deficits. Normal speech. Vital Sign (Last 24 Hours) 06/19/25 06/19/25 09:48 12:00 Temp 98.2 Pulse 63 Resp 20 B/P (MAP) 126/73 Pulse Ox 95 O2 Delivery Room Air O2 Flow Rate 0 FiO2 21 Intake & Output (last 24hrs) 06/18/25 06/18/25 06/19/25 15:00 23:00 07:00 Intake Total 2480.0 ml Balance 2480.0 ml Laboratory: [ ] Laboratory: Test 06/19/25 16:05 06/19/25 06:40 06/18/25 18:58 Range/Units Whole Blood Glucose 95 70-110 MG/DL White Blood Count 10.3 # 4.8-10.8 K/uL Red Blood Count 4.41 L 4.50-6.20 MIL/uL Hemoglobin 13.6 L 14.0-18.0 g/dL Hematocrit 42.0 42-54 % Mean Corpuscular Volume 95.2 79-99 fL Mean Corpuscular Hemoglobin 30.8 27.0-33.0 pg Mean Corpuscular Hemoglobin Concent 32.4 32.0-36.0 g/dL Red Cell Distribution Width 13.4 11.0-15.5 % Platelet Count 164 130-400 K/uL Mean Platelet Volume 9.8 7.5-10.5 fL Immature Granulocyte % (Auto) 0.6 0-1 % Neutrophils (%) (Auto) 76.3 40.0-77.0 % Lymphocytes (%) (Auto) 11.9 L 21.0-51.0 % Monocytes (%) (Auto) 10.3 3.0-13.0 % Eosinophils (%) (Auto) 0.5 0.0-8.0 % Basophils (%) (Auto) 0.4 0.0-5.0 % Neutrophils # (Auto) 7.8 H 1.8-7.7 K/uL Lymphocytes # (Auto) 1.2 1.0-4.8 K/uL Monocytes # (Auto) 1.1 H 0.1-1.0 K/uL Eosinophils # (Auto) 0.05 0.00-0.70 K/uL Basophils # (Auto) 0.04 0.00-0.20 K/uL Absolute Immature Granulocyte (auto 0.06 0-1 K/uL Nucleated Red Blood Cells 0.0 0.0-0.19 % Sodium Level 137 136-145 mmol/L Potassium Level 4.5 3.5-5.1 mmol/L Chloride Level 102 101-111 mmol/L Carbon Dioxide Level 29 21-32 mmol/L Blood Urea Nitrogen 20 H 7-18 mg/dL Creatinine 0.7 0.5-1.3 mg/dL Glomerular Filtration Rate Calc 105 >90 mL/min Random Glucose 71 70-105 mg/dL Total Calcium 8.6 8.5-10.1 mg/dL Magnesium Level 1.90 1.80-2.40 mg/dL Total Bilirubin 1.2 H 0.2-1.0 mg/dL Aspartate Amino Transf (AST/SGOT) 19 10-37 U/L Alanine Aminotransferase (ALT/SGPT) 23 # 12-78 U/L Alkaline Phosphatase 59 50-136 U/L C-Reactive Protein, Quantitative 96.50 H 0.5-3.0 mg/L Total Protein 6.5 6.0-8.3 g/dL Albumin 2.9 L 3.5-5.0 g/dL Lipase 16 16-77 U/L Erythrocyte Sedimentation Rate 15 0-20 MM/HR Hemoglobin A1c 7.1 H 4.0-6.0 % Estimated Average Glucose (eAG) 157 H 70-126 mg/dL Lactate Dehydrogenase 119 81-234 U/L Total Creatine Kinase 126 # 21-232 U/L Troponin I High Sensitivity 51.8 4-75 ng/L Triglycerides Level 51 30-200 mg/dL Cholesterol Level 151 <200 mg/dL LDL Cholesterol 76 0-99 mg/dL HDL Cholesterol 59 29-71 mg/dL Amylase Level 43 # 25-115 U/L Procalcitonin < 0.05 L 0.05-0.5 ng/mL Thyroid Stimulating Hormone (TSH) 1.24 # 0.36-3.74 uIU/mL Current Medications Medications (Trade) Dose Ordered Sig/Kilo Route PRN Reason Start Time Stop Time Status Last Admin Dose Admin Acetaminophen (TYLenol 325MG TAB) 650 mg Q6H PRN PO MILD PAIN (1-3) 06/18/25 19:00 07/18/25 18:59 Albuterol (DUOneb) 1 udvial Q6H PRN IH SHORTNESS OF BREATH 06/18/25 19:00 07/18/25 18:59 Aspirin (Aspirin 81mg Ec Tab) 81 mg DAILY PO 06/20/25 09:00 07/20/25 08:59 Atorvastatin Calcium (LIPItor 20MG) 20 mg HS PO 06/19/25 21:00 07/19/25 20:59 Dextrose (D50w) 50 ml AD PRN IV HYPOGLYCEMIA PROTOCOL 06/18/25 20:00 07/18/25 19:59 Dextrose/Sodium Chloride 1,000 ml @ 150 mls/hr Q6H40M IV 06/19/25 12:00 07/19/25 11:59 06/19/25 11:52 150 MLS/HR Diphenhydramine HCl (BENAdryl INJ) 25 mg Q6H PRN IV ITCHING/ rash 06/18/25 19:30 07/18/25 19:29 Enoxaparin Sodium (Lovenox) 40 mg DAILY SQ 06/19/25 09:00 06/19/25 08:36 DC Enoxaparin Sodium (Lovenox) 40 mg HS SQ 06/19/25 21:00 07/19/25 08:59 Glucagon (Glucagon 1mg Kit) 1 mg AD PRN IM HYPOGLYCEMIA PROTOCOL 06/18/25 20:00 07/18/25 19:59 Hydralazine HCl (APRESOLine 20MG INJ) 10 mg Q6H PRN IV ADMINISTER FOR SBP > 170 06/18/25 19:00 07/18/25 18:59 Hydromorphone HCl (DiLAUDid 0.5MG INJ) 0.5 mg Q6H PRN IVP SEVERE PAIN (7-10) 06/18/25 20:30 06/23/25 20:29 06/19/25 01:02 0.5 MG Insulin Human Regular (humuLIN R 100 UNIT/ML 3ML) INSULIN SLIDING SCAL... ACHS SQ 06/18/25 21:00 07/18/25 20:59 Ketorolac Tromethamine (toRADol) 15 mg Q12H PRN IV MODERATE PAIN (4-6) 06/18/25 20:30 06/21/25 20:30 Lactated Ringer's 1,000 ml @ 150 mls/hr Q6H40M IV 06/18/25 19:00 06/19/25 11:44 DC 06/19/25 01:02 150 MLS/HR Lisinopril (Prinivil 10mg) 10 mg DAILY PO 06/20/25 09:00 07/20/25 08:59 Magnesium Sulfate 50 ml @ 0 mls/hr PROTOCOL IV 06/18/25 19:00 07/18/25 18:59 Meropenem (Merrem 1gm) 1 gm Q8H IVPB 06/18/25 19:30 06/28/25 19:29 06/19/25 11:45 1 GM Ondansetron HCl (zoFRAN 4MG INJ) 4 mg Q6H PRN IVP NAUSEA/VOMITING 06/18/25 19:00 07/18/25 18:59 06/19/25 01:02 4 MG Pantoprazole Sodium (PROTonix 40MG INJ) 40 mg DAILY IVP 06/19/25 09:00 07/19/25 08:59 06/19/25 11:45 40 MG Pharmacy Profile Note (Pharmacy Communication) 1 each ONCE MISC 06/18/25 19:30 06/18/25 19:11 DC Potassium Chloride 100 ml @ 100 mls/hr AD PRN IV POTASSIUM PROTOCOL 06/18/25 19:00 07/18/25 18:59 Potassium Chloride (K-Dur/Klor-Con 20meq) 20 meq AD PRN PO POTASSIUM PROTOCOL 06/18/25 19:00 07/18/25 18:59 Potassium Chloride (KCl 10% Elixir 20meq/15ml) 20 meq AD PRN PO POTASSIUM PROTOCOL 06/18/25 19:00 07/18/25 18:59 Thiamine HCl (Vitamin B-1) 100 mg Q24H IVP 06/18/25 19:00 07/18/25 18:59 06/18/25 20:04 100 MG Diagnostics / Radiology: [COPY/PASTE HERE IF NO REPORTS PLEASE DELETE SECTION] Assessment: [Abdominal pain Acute Pancreatitis Type 2 Diabetes Hypertension ] Possible causes to consider include alcohol, idiopathic, hypertriglyceridemia, medications, hypercalcemia, ERCP, celiac disease, autoimmune pancreatitis, vasculitis Plan: Case discussed Dr. Love 1. NPO for MRI MRCP 2. Aggressive IV fluids lactated Ringer's 200-400 mL/hour for 12-24 hours to maintain adequate pancreatic perfusion and prevent ischemic necrosis 3. Supportive care with opioid analgesics (avoid NSAIDs) and antiemetics 4. Close patient monitoring of vital signs including O2 saturations, urine output, and electrolyte replacement 5. Resume oral intake within two days if the pain is decreasing and there is no ileus with a low fat, low residue diet. Advance as tolerated 6. Consider CT with IV contrast after 48 hours of aggressive IVF to assess for necrosis if the patient is not progressing. Seven. If oral diet is not tolerated, naso jejunal tube feeds are preferred ov ert TPN Thank you for allowing us to participate in the care of this patient! ] SIENNA MÉNDEZ Jun 19, 2025 16:39
--- NOTE | 2025-06-19 18:50 | NUR ---
PT WAS NOT ABLE TO TOLERATE MRI. PER JAMES CLAROS FROM RADIOLOGY PT IS CLAUSTROPHOBIC.
[2025-06-19] MEDS: ENOXAPARIN SODIUM 40 MG/0.4 ML SYRINGE SQ SCH (20:34)
--- NOTE | 2025-06-19 21:56 | HMCIMG ---
EXAM: Ultrasound Abdomen, Right Upper Quadrant CLINICAL HISTORY: Right upper quadrant pain, history of acute pancreatitis. TECHNIQUE: Real-time right upper quadrant sonography performed with grayscale and color Doppler imaging. COMPARISON: CT Abdomen and Pelvis with Contrast ??? 06/19/25, 06:19 EDT FINDINGS: LIVER: Liver measures 20.7 cm in craniocaudal dimension. Parenchymal echogenicity is mildly increased, consistent with fatty infiltration. No focal hepatic lesion or intrahepatic biliary dilatation seen. GALLBLADDER: Status post cholecystectomy (gallbladder surgically removed). COMMON BILE DUCT: Common bile duct measures 5 mm in diameter, within normal limits for post-cholecystectomy status. No intraductal calculus or obstruction identified. PANCREAS: Visualized portions appear obscured by overlying bowel gas, limiting detailed assessment. No definite peripancreatic fluid or pseudocyst seen in the visualized region. RIGHT KIDNEY: Right kidney measures 13.3 ??? 6.1 ??? 6.3 cm. Normal renal cortical thickness and echogenicity. No calculus, hydronephrosis, or focal lesion identified. COMMENTS: Portions of the pancreas are obscured by bowel gas artifact, limiting full evaluation. IMPRESSION: 1. Hepatomegaly (liver measures 20.7 cm in craniocaudal dimension) with mild fatty infiltration. 2. Status post cholecystectomy with common bile duct measuring 5 mm, within normal limits for post-cholecystectomy status. 3. Limited visualization of pancreas due to bowel gas artifact; no definite peripancreatic fluid or pseudocyst seen in the visualized region. 4. Normal right kidney measuring 13.3 ??? 6.1 ??? 6.3 cm, with no calculus, hydronephrosis, or focal lesion identified. /[place]
[2025-06-20] VITALS (10 sets, daily range): BP systolic 113–161; BP diastolic 73–81; PULSE 55–74; RESP 16–18; TEMP 97.7–98.7; O2SAT 96–98
[2025-06-20 04:40] LABS: NUCLEATED RED BLOOD CELLS 0.0 % (0.0-0.19); PLATELET COUNT (AUTO) 153.0 K/uL (130-400); RED BLOOD CELL COUNT(AUTO) 4.49 MIL/uL (4.50-6.20); RED CELL DISTRIBUTION WIDTH 13.1 % (11.0-15.5); WHITE BLOOD COUNT (AUTO) 7.7 K/uL (4.8-10.8)
[2025-06-20 04:54] LABS: ASPARTATE AMINOTRANSFERASE 23.0 U/L (10-37); CREATININE 0.7 mg/dL (0.5-1.3); GLOMERULAR FILTR. RATE CALC 105.0 mL/min (>90); GLUCOSE,RANDOM 116.0 mg/dL (70-105); SODIUM SERUM 141.0 mmol/L (136-145); TOTAL PROTEIN, SERUM 6.4 g/dL (6.0-8.3); UREA NITROGEN, BLOOD 15.0 mg/dL (7-18)
[2025-06-20] MEDS: ASPIRIN 81 MG EC TAB PO SCH (09:00)
[2025-06-20] MEDS: LISINOPRIL 10 MG TABLET PO SCH (09:00)
--- NOTE | 2025-06-20 09:14 | CONS ---
INFECTIOUS DISEASE CONSULTATION DATE OF SERVICE: 06/19/2025 REQUESTING PHYSICIAN: Pérez Garcia MD REASON FOR CONSULTATION: Pancreatitis. HISTORY OF PRESENT ILLNESS: A 59-year-old male with history of pancreatitis, obesity who presented to the emergency room with abdominal pain. The pain is mainly localized to the epigastric area with radiation to the back. The patient has no fever but claims he has some chills. CT of the abdomen and pelvis was done which shows peripancreatic edema, possibly some gas formation. The patient started on meropenem. WBC on admission was 14,000. Denies nausea, vomiting or diarrhea. No dysuria or urinary frequency. Blood culture was negative. PAST MEDICAL HISTORY: 1. Pancreatitis. 2. Obesity. 3. Diabetes mellitus. 4. Dyslipidemia. 5. Hypertension. PAST SURGICAL HISTORY: 1. Cholecystectomy. 2. Ventral hernia repair. ALLERGIES: PENICILLIN but tolerating carbapenem. CURRENT MEDICATIONS: Reviewed and include: 1. Meropenem. 2. Thiamine. 3. Protonix. 4. Insulin. SOCIAL HISTORY: No alcohol, tobacco or illicit drugs. FAMILY HISTORY: Positive for diabetes mellitus. REVIEW OF SYSTEMS: Greater than 10 systems were reviewed and negative except as documented above. PHYSICAL EXAMINATION: CONSTITUTIONAL: Elderly male, awake. VITAL SIGNS: Temperature 981, pulse 69, respiratory rate 19, BP 142/68. EYES: No icterus. Pupils equal and reactive. HENT: No oral thrush seen. Moist oral mucosa. NECK: Supple. No JVD or thyromegaly. LUNGS: Good air entry. No rales, no rhonchi. CARDIOVASCULAR: S1, S2, regular. No murmur heard. ABDOMEN: Soft, nontender. Bowel sounds are present. Obese. No organomegaly. CENTRAL NERVOUS SYSTEM: Awake, alert, oriented x 3. No focal deficits. SKIN: No rashes. No itchiness. LYMPHATIC: No peripheral lymphadenopathy. BACK: No deformity, no pressure ulcer. MUSCULOSKELETAL: No joint swelling, erythema, or tenderness. LABORATORY DATA: Lipase 49, sodium 130, potassium 4.5, BUN 20, creatinine 0.7, total hemoglobin a1c7.1, WBC 10.2, hemoglobin 13.6, platelets 162. RADIOLOGY: CT of the abdomen, results reviewed. ASSESSMENT: A 59-year-old male who presents with abdominal pain. CURRENT PROBLEMS: Include: 1. Acute on chronic pancreatitis. 2. Abdominal pain. 3. Diabetes mellitus with hemoglobin A1c of 7.1. 4. Obesity. 5. Hypertension. PLAN: 1. Continue meropenem. 2. Continue thiamine. 3. Continue protonix. 4. Continue antiemetics. 5. Monitor electrolytes. 6. Continue DVT prophylaxis. 7. The patient will be followed up closely. Thank you for allowing me to participate in the care of this patient. TID: [id number] RECEIPT: [id number]
--- NOTE | 2025-06-20 11:53 | PN ---
[facility] PROGRESS NOTE Date of Service: Jun 20, 2025 Time of Service: 11:41 HISTORY OF PRESENT ILLNESS: Date of service: 06/18/2025, patient [place] [facility] [place] This is a patient who was transferred from [facility] ER for further treatment and management of acute pancreatitis. This is a 59-year-old male with underlying history of obesity, type 2 diabetes mellitus, hypertension, hyperlipidemia, patient with previous history of pancreatitis in 2020 complicated by necrotizing pancreatitis, history of cholecyst[place] [address] Almanza who presented as a transfer from [facility] Emergency room for further evaluation of pancreatitis. Patient st ates that he was having some [id number] intensity epigastric pain associated with nausea that started yesterday with mild pain radiating to the back. Pain was about 3-4/10 in intensity. Symptoms were nonresolving prompting him to come to the ER today for further evaluation. Reports having some subjective chills as well. He has been doing relatively well since his hospitalization in 2020 and denies any recent hospitalization. Reports that he was hospitalized in [facility] in 2020 for necrotizing pancreatitis with pseudocyst. Patient had a prolonged hospitalization for management of pancreatitis. He also has a history of cholecystectomy due to cholecystitis in July,. Patient denies any history of hypertriglyceridemia, denies any significant alcohol consumption and denies any familial history of pancreatitis. He has been maintained on Jardiance for several years for management of type 2 diabetes mellitus. He is currently maintained on Tresiba 80 units daily and prandial insulin 30 units 3 times a day with meals for management of type 2 diabetes mellitus. On Presentation to the hospital, patient was noted to be afebrile and hemodynamically stable. Patient underwent a CT abdomen pelvis without IV contrast which showed findings of extensive peripancreatic edema with stranding with peripancreatic prominent lymph nodes in fluid tracking to the anterior left pararenal space. Patient was also found to have focus of gas and distal pancreas with necrotizing pancreatitis/pancreatic abscess which could not be ruled out. SUBJECTIVE: 06/19/25: Patient was seen and evaluated in room 311, patient was lying on the bed and denies abdominal pain but rather reports it as abdominal discomfort. patient denies any fever, chills. Patient denies any changes in bladder movement or burning sensation during urination. Patient mentioned that he last passed stool from Thursday. Patient is currently on NPO. Pertinent labs- WBC-10.3, Lipase -16, amylase-43, Troponin-51, CRP-96.5, TG-51, cholesterol-151 06/20/25: Patient was seen and evaluated in room 311, patient was lying on the bed and denies abdominal pain. Patient reports feeling better and doesn't have any active complaints. As per general surgery, gastroenterology he was scheduled for MRCP. But patient denied since he is claustrophobic. waiting for further recommendations from surgery and gastroenterology. Patient mentioned that he last passed stool from Thursday. Patient is currently on NPO. Pertinent labs- WBC- 7.7, Lipase -14, amylase-43, Troponin-51, CRP-77.30, TG-51, cholesterol-151 REVIEW OF SYSTEMS CONSTITUTIONAL: Reports having chills NEUROLOGICAL: Denies headache, amaurosis fugax, motor weakness, sensory deficit, vertigo/spinning sensation, gait abnormalities, or tremors. ENT: No hearing loss, otalgia, otorrhea, rhinitis, rhinorrhea, hoarseness, or sore throat. CARDIOVASCULAR: Denies any exertional angina, dyspnea on exertion, orthopnea, paroxysmal nocturnal dyspnea, palpitations, life-threatening arrhythmias, claudication. PULMONARY: Denies any shortness of breath, cough, phlegm/sputum, hemoptysis, p leuritic chest pain. SLEEP: Denies morning headaches, daytime somnolence or napping. Denies difficulty falling asleep, staying asleep, waking from sleep. Denies knowledge of snoring. GASTROINTESTINAL: Nausea, vomiting , epigastric abdominal pain GENITOURINARY: Denies frequency, urgency, nocturia, hematuria or incontinence (Storage/Irritative symptoms.) Low urinary stream, straining to void, urinary intermittency or hesitancy, splitting of the voiding stream, terminal dribbling. ENDOCRINOLOGIC: Denies polyuria, polydipsia, polyphagia or heat/cold i ntolerances. HEMATOLOGIC: Denies thrombophilia/previous clots, or coagulopathy/bleeding disorders. ONCOLOGIC: Denies personal history of malignancy. DERMATOLOGIC: Denies rashes or pruritus. PSYCHIATRIC: Denies any suicidal or homicidal ideation. Denies hallucinations. PHYSICAL EXAM GENERAL APPEARANCE: The patient is awake, alert, and oriented, in no acute cardiopulmonary distress. NEUROLOGICAL: Cranial nerves II-XII grossly intact. Motor is 5/5 in bilateral upper and lower extremities proximal to distal. No sensory deficits. HEENT: Face is symmetric. Pupils are equal and reactive. Extraocular movements are intact. NECK: Supple. No JVD. No thyromegaly. No submental, submandibular, pre- /postauricular, occipital or supraclavicular lymphadenopathy. CHEST: Normal chest expansion. No Telemetry. LUNGS: Absence of any rales, rhonchi or any wheezing. CARDIOVASCULAR: Regular. S1 and S2 normal. No appreciable rubs, murmurs or gallops. ABDOMEN: Soft, mild tenderness to palpation of the epigastric area with no rebound or guarding : Deferred. No Sandoval. EXTREMITIES: Non-edematous and not cyanotic. No clubbing. Good capillary refill. SKIN: No skin breakdown. Vital Signs (last 8hr) Date Time Temp Pulse Resp B/P (MAP) Pulse Ox O2 Delivery O2 Flow Rate FiO2 06/20/25 10:32 56 18 N/A Room Air 06/20/25 08:00 98.8 58 18 141/73 96 Room Air 06/20/25 07:39 Room Air* 0 21 06/20/25 06:55 58 18 N/A Room Air 06/20/25 04:00 97.7 56 16 134/76 95 Room Air LABS: Laboratory: Test 06/20/25 10:52 06/20/25 04:29 06/19/25 06:40 06/18/25 18:58 Range/Units Whole Blood Glucose 112 H 70-110 MG/DL White Blood Count 7.7 # 4.8-10.8 K/uL Red Blood Count 4.49 L 4.50-6.20 MIL/uL Hemoglobin 13.8 L 14.0-18.0 g/dL Hematocrit 42.0 42-54 % Mean Corpuscular Volume 93.5 79-99 fL Mean Corpuscular Hemoglobin 30.7 27.0-33.0 pg Mean Corpuscular Hemoglobin Concent 32.9 32.0-36.0 g/dL Red Cell Distribution Width 13.1 11.0-15.5 % Platelet Count 153 130-400 K/uL Mean Platelet Volume 10.1 7.5-10.5 fL Nucleated Red Blood Cells 0.0 0.0-0.19 % Sodium Level 141 136-145 mmol/L Potassium Level 4.8 3.5-5.1 mmol/L Chloride Level 104 101-111 mmol/L Carbon Dioxide Level 29 21-32 mmol/L Blood Urea Nitrogen 15 7-18 mg/dL Creatinine 0.7 0.5-1.3 mg/dL Glomerular Filtration Rate Calc 105 >90 mL/min Random Glucose 116 #H 70-105 mg/dL Total Calcium 8.5 8.5-10.1 mg/dL Total Bilirubin 1.0 0.2-1.0 mg/dL Aspartate Amino Transf (AST/SGOT) 23 10-37 U/L Alanine Aminotransferase (ALT/SGPT) 21 12-78 U/L Alkaline Phosphatase 58 50-136 U/L C-Reactive Protein, Quantitative 77.30 H 0.5-3.0 mg/L Total Protein 6.4 6.0-8.3 g/dL Albumin 2.7 L 3.5-5.0 g/dL Lipase 14 L 16-77 U/L Immature Granulocyte % (Auto) 0.6 0-1 % Neutrophils (%) (Auto) 76.3 40.0-77.0 % Lymphocytes (%) (Auto) 11.9 L 21.0-51.0 % Monocytes (%) (Auto) 10.3 3.0-13.0 % Eosinophils (%) (Auto) 0.5 0.0-8.0 % Basophils (%) (Auto) 0.4 0.0-5.0 % Neutrophils # (Auto) 7.8 H 1.8-7.7 K/uL Lymphocytes # (Auto) 1.2 1.0-4.8 K/uL Monocytes # (Auto) 1.1 H 0.1-1.0 K/uL Eosinophils # (Auto) 0.05 0.00-0.70 K/uL Basophils # (Auto) 0.04 0.00-0.20 K/uL Absolute Immature Granulocyte (auto 0.06 0-1 K/uL Magnesium Level 1.90 1.80-2.40 mg/dL Erythrocyte Sedimentation Rate 15 0-20 MM/HR Hemoglobin A1c 7.1 H 4.0-6.0 % Estimated Average Glucose (eAG) 157 H 70-126 mg/dL Lactate Dehydrogenase 119 81-234 U/L Total Creatine Kinase 126 # 21-232 U/L Troponin I High Sensitivity 51.8 4-75 ng/L Triglycerides Level 51 30-200 mg/dL Cholesterol Level 151 <200 mg/dL LDL Cholesterol 76 0-99 mg/dL HDL Cholesterol 59 29-71 mg/dL Amylase Level 43 # 25-115 U/L Procalcitonin < 0.05 L 0.05-0.5 ng/mL Thyroid Stimulating Hormone (TSH) 1.24 # 0.36-3.74 uIU/mL Current Medications Medications (Trade) Dose Ordered Sig/Kilo Route PRN Reason Start Time Stop Time Status Last Admin Dose Admin Acetaminophen (TYLenol 325MG TAB) 650 mg Q6H PRN PO MILD PAIN (1-3) 06/18/25 19:00 07/18/25 18:59 Albuterol (DUOneb) 1 udvial Q6H PRN IH SHORTNESS OF BREATH 06/18/25 19:00 07/18/25 18:59 Aspirin (Aspirin 81mg Ec Tab) 81 mg DAILY PO 06/20/25 09:00 07/20/25 08:59 Atorvastatin Calcium (LIPItor 20MG) 20 mg HS PO 06/19/25 21:00 07/19/25 20:59 06/19/25 21:19 20 MG Dextrose (D50w) 50 ml AD PRN IV HYPOGLYCEMIA PROTOCOL 06/18/25 20:00 07/18/25 19:59 Dextrose/Sodium Chloride 1,000 ml @ 150 mls/hr Q6H40M IV 06/19/25 12:00 07/19/25 11:59 06/20/25 11:01 150 MLS/HR Diphenhydramine HCl (BENAdryl INJ) 25 mg Q6H PRN IV ITCHING/ rash 06/18/25 19:30 07/18/25 19:29 Enoxaparin Sodium (Lovenox) 40 mg DAILY SQ 06/19/25 09:00 06/19/25 08:36 DC Enoxaparin Sodium (Lovenox) 40 mg HS SQ 06/19/25 21:00 07/19/25 08:59 06/19/25 20:34 40 MG Glucagon (Glucagon 1mg Kit) 1 mg AD PRN IM HYPOGLYCEMIA PROTOCOL 06/18/25 20:00 07/18/25 19:59 Hydralazine HCl (APRESOLine 20MG INJ) 10 mg Q6H PRN IV ADMINISTER FOR SBP > 170 06/18/25 19:00 07/18/25 18:59 Hydromorphone HCl (DiLAUDid 0.5MG INJ) 0.5 mg Q6H PRN IVP SEVERE PAIN (7-10) 06/18/25 20:30 06/23/25 20:29 06/19/25 01:02 0.5 MG Insulin Human Regular (humuLIN R 100 UNIT/ML 3ML) INSULIN SLIDING SCAL... ACHS SQ 06/18/25 21:00 06/20/25 07:31 DC Insulin Human Regular (humuLIN R 100 UNIT/ML 3ML) INSULIN SLIDING SCAL... ACHS SQ 06/20/25 07:30 07/20/25 07:29 Ketorolac Tromethamine (toRADol) 15 mg Q12H PRN IV MODERATE PAIN (4-6) 06/18/25 20:30 06/21/25 20:30 Lactated Ringer's 1,000 ml @ 150 mls/hr Q6H40M IV 06/18/25 19:00 06/19/25 11:44 DC 06/19/25 01:02 150 MLS/HR Lisinopril (Prinivil 10mg) 10 mg DAILY PO 06/20/25 09:00 07/20/25 08:59 Magnesium Sulfate 50 ml @ 0 mls/hr PROTOCOL IV 06/18/25 19:00 07/18/25 18:59 Meropenem (Merrem 1gm) 1 gm Q8H IVPB 06/18/25 19:30 06/28/25 19:29 06/20/25 11:01 1 GM Ondansetron HCl (zoFRAN 4MG INJ) 4 mg Q6H PRN IVP NAUSEA/VOMITING 06/18/25 19:00 07/18/25 18:59 06/19/25 01:02 4 MG Pantoprazole Sodium (PROTonix 40MG INJ) 40 mg DAILY IVP 06/19/25 09:00 07/19/25 08:59 06/20/25 11:00 40 MG Pharmacy Profile Note (Pharmacy Communication) 1 each ONCE MISC 06/18/25 19:30 06/18/25 19:11 DC Potassium Chloride 100 ml @ 100 mls/hr AD PRN IV POTASSIUM PROTOCOL 06/18/25 19:00 07/18/25 18:59 Potassium Chloride (K-Dur/Klor-Con 20meq) 20 meq AD PRN PO POTASSIUM PROTOCOL 06/18/25 19:00 07/18/25 18:59 Potassium Chloride (KCl 10% Elixir 20meq/15ml) 20 meq AD PRN PO POTASSIUM PROTOCOL 06/18/25 19:00 07/18/25 18:59 Thiamine HCl (Vitamin B-1) 100 mg Q24H IVP 06/18/25 19:00 07/18/25 18:59 06/18/25 20:04 100 MG DIAGNOSTICS / RADIOLOGY: [place] [address] [address] IMAGING REPORT Signed PATIENT: RAAD ALICIA MR#: [id number] : 1965 SEX: M AGE: 59 LOCATION: 3BH ORDER [id number] STATUS: ADM IN REPORT#: [id number] SERVICE 1016 REASON: RUQ pain, acute pancreatitis ORDERING PHYSICIAN: KARIN GUZMAN MD PROCEDURE: ABDRUQLTD - US ABDOMINAL RUQ\LTD EXAM: Ultrasound Abdomen, Right Upper Quadrant CLINICAL HISTORY: Right upper quadrant pain, history of acute pancreatitis. TECHNIQUE: Real-time right upper quadrant sonography performed with grayscale and color Doppler imaging. COMPARISON: CT Abdomen and Pelvis with Contrast ??? 06/19/25, 06:19 EDT FINDINGS: LIVER: Liver measures 20.7 cm in craniocaudal dimension. Parenchymal echogenicity is mildly increased, consistent with fatty infiltration. No focal hepatic lesion or intrahepatic biliary dilatation seen. GALLBLADDER: Status post cholecystectomy (gallbladder surgically removed). COMMON BILE DUCT: Common bile duct measures 5 mm in diameter, within normal limits for post-cholecystectomy status. No intraductal calculus or obstruction identified. PANCREAS: Visualized portions appear obscured by overlying bowel gas, limiting detailed assessment. No definite peripancreatic fluid or pseudocyst seen in the visualized region. RIGHT KIDNEY: Right kidney measures 13.3 ??? 6.1 ??? 6.3 cm. Normal renal cortical thickness and echogenicity. No calculus, hydronephrosis, or focal lesion identified. COMMENTS: Portions of the pancreas are obscured by bowel gas artifact, limiting full evaluation. IMPRESSION: 1. Hepatomegaly (liver measures 20.7 cm in craniocaudal dimension) with mild fatty infiltration. 2. Status post cholecystectomy with common bile duct measuring 5 mm, within normal limits for post-cholecystectomy status. 3. Limited visualization of pancreas due to bowel gas artifact; no definite peripancreatic fluid or pseudocyst seen in the visualized region. 4. Normal right kidney measuring 13.3 ??? 6.1 ??? 6.3 cm, with no calculus, hydronephrosis, or focal lesion identified. /[place] DICTATED BY: TITA HUTTON MD DATE: 06/19/252254 ELECTRONICALLY SIGNED BY: TITA HUTTON MD DATE: 06/19/252254 ASSESSMENT: Acute pancreatitis, POA Rule out necrotizing pancreatitis/pancreatic abscess, POA Leukocytosis, POA History of complicated pancreatitis with necrotizing pancreatitis with pseudocyst in 2020 Status post cholecystectomy, POA History of Jardiance use as outpatient, POA Bilateral adrenal gland indeterminate nodules, POA ( right adrenal gland measuring 2 cm and left adrenal gland measuring 0.9 cm) History of hypertension, POA Hyperlipidemia, POA Type 2 diabetes mellitus, POA History of abdominal hernia repair with mesh, POA Diverticulosis, POA PLAN: Acute pancreatitis, POA * WBC trends -14.2>10.3, Lipase -16, amylase-43, Troponin-51, CRP-96.5, TG-51, cholesterol-151, Total bilirubin-1.2 * CT abdomen was ordered results show - Grade E Acute Severe Pancreatitis With CTSI Score Of 8/10 [30- 50 PERCENT NECROSIS] with Fluid in the left anterior pararenal space. * Abdominal Ultrasound was done, results show Hepatomegaly (20.7 cm) with mild fatty infiltration, common bile duct measuring 5mm, Limited visualization of pancreas due to bowel gas artifact, Normal right kidney measuring with no calculus, hydronephrosis. * MRCP was ordered, but patient denied because he is claustrophobic. * General surgery was consulted, will follow their recommendations * GI was consulted, will follow their recommendations * Infectious diseases was consulted, will follow their recommendations. * Endocrinology was consulted, will follow their recommendations. * Currently on Meropenem(day 3) * Jardiance was stopped, suspecting cause of pancreatitis. * IV fluids with Ringer lactate (200-400ml/hr) for 12-24 hours as GI recommendations * For pain management he is on Dilaudid 0.5mg PRN, Toradol 15mg PRN, Tylenol 650mg PRN * Currently on NPO. * H/O necrotizing pancreatitis, H/O cholecystectomy will monitor closely. * Will monitor with daily labs. Supportive measures: * GI prophylaxis Protonix * DVT prophylaxis with Lovenox ATTESTATION BY PHYSICIAN I have seen and examined the patient. I reviewed the documentation, medical decision making, and treatment plan as noted by the resident physician above. I agree with the findings and plan of care. Raad Reed MD, SHAJI MD Jun 20, 2025 11:53
--- NOTE | 2025-06-20 13:51 | PN ---
This is a 59-year-old male with a some concerns of acute complicated pancreatitis Interval history: This 59-year-old male seen in his room resting Patient was scheduled for MRCP but due to claustrophobia unable to perform Patient reporting no abdominal pain Patient is NPO Labs and vitals unremarkable with a lipase of 14 GI on case Physical exam General: Awake alert and oriented Heart: Regular rate and rhythm} Lungs: Clear to auscultation no distress Abdomen: [Soft, nontender, nondistended Assessment : This is a 59-year-old male with concerns of complicated acute pancreatitis with a history of cholecystectomy Plan: This point in time we will reach out to primary team for possible assistance for patient to tolerate MRCP Patient should remain NPO Await GI recommendations No immediate plans for surgical intervention Dr. Jaimes to be updated on patient's status Surgical case has been discussed with my supervising physician in the above plan was formulated and agreed upon We appreciate the hospitalist team for us to participate in patient's care. Greater than 45 minutes of time spent patient, reviewing chart, working on documentation Vitals/Labs Vital Signs Date Time Temp Pulse Resp B/P (MAP) Pulse Ox O2 Delivery O2 Flow Rate FiO2 06/20/25 12:00 98.2 57 18 156/81 95 Room Air 06/20/25 10:32 21 06/20/25 07:39 0 Laboratory Tests 06/20/25 04:29 Medications Current Medications Thiamine HCl 100 mg Q24H IVP Last administered on 06/18/25at 20:04; Start 06/18/25 at 19:00; Stop 07/18/25 at 18:59 Sodium Chloride 1,000 ml @ 0 mls/hr ONCE ONCE IV Last administered on 06/18/25at 19:07; Start 06/18/25 at 19:00; Stop 06/18/25 at 19:01; Status DC Lactated Ringer's 1,000 ml @ 150 mls/hr Q6H40M IV Last administered on 06/19/25at 01:02; Start 06/18/25 at 19:00; Stop 06/19/25 at 11:44; Status DC Pantoprazole Sodium 40 mg DAILY IVP Last administered on 06/20/25at 11:00; Start 06/19/25 at 09:00; Stop 07/19/25 at 08:59 Acetaminophen 650 mg Q6H PRN PO; Start 06/18/25 at 19:00; Stop 07/18/25 at 18:59 Ondansetron HCl 4 mg Q6H PRN IVP Last administered on 06/19/25at 01:02; Start 06/18/25 at 19:00; Stop 07/18/25 at 18:59 Albuterol 1 udvial Q6H PRN IH; Start 06/18/25 at 19:00; Stop 07/18/25 at 18:59 Insulin Human Regular INSULIN SLIDING SCAL... ACHS SQ; Start 06/18/25 at 21:00; Stop 06/20/25 at 07:31; Status DC Potassium Chloride 100 ml @ 100 mls/hr AD PRN IV; Start 06/18/25 at 19:00; Stop 07/18/25 at 18:59 Potassium Chloride 20 meq AD PRN PO; Start 06/18/25 at 19:00; Stop 07/18/25 at 18:59 Potassium Chloride 20 meq AD PRN PO; Start 06/18/25 at 19:00; Stop 07/18/25 at 18:59 Magnesium Sulfate 50 ml @ 0 mls/hr PROTOCOL IV; Start 06/18/25 at 19:00; Stop 07/18/25 at 18:59 Hydralazine HCl 10 mg Q6H PRN IV; Start 06/18/25 at 19:00; Stop 07/18/25 at 18:59 Pharmacy Profile Note 1 each ONCE [facility]; Start 06/18/25 at 19:30; Stop 06/18/25 at 19:11; Status DC Meropenem 1 gm Q8H IVPB Last administered on 06/20/25at 11:01; Start 06/18/25 at 19:30; Stop 06/28/25 at 19:29 Diphenhydramine HCl 25 mg Q6H PRN IV; Start 06/18/25 at 19:30; Stop 07/18/25 at 19:29 Dextrose 50 ml AD PRN IV; Start 06/18/25 at 20:00; Stop 07/18/25 at 19:59 Glucagon 1 mg AD PRN IM; Start 06/18/25 at 20:00; Stop 07/18/25 at 19:59 Hydromorphone HCl 0.5 mg Q6H PRN IVP Last administered on 06/19/25at 01:02; Start 06/18/25 at 20:30; Stop 06/23/25 at 20:29 Ketorolac Tromethamine 15 mg Q12H PRN IV; Start 06/18/25 at 20:30; Stop 06/21/25 at 20:30 Enoxaparin Sodium 40 mg DAILY SQ; Start 06/19/25 at 09:00; Stop 06/19/25 at 08:36; Status DC Iohexol 35,000 mg STK-MED ONCE IV; Start 06/19/25 at 06:17; Stop 06/19/25 at 06:17; Status DC Enoxaparin Sodium 40 mg HS SQ Last administered on 06/19/25at 20:34; Start 06/19/25 at 21:00; Stop 07/19/25 at 08:59 Aspirin 81 mg DAILY PO; Start 06/20/25 at 09:00; Stop 07/20/25 at 08:59 Lisinopril 10 mg DAILY PO; Start 06/20/25 at 09:00; Stop 07/20/25 at 08:59 Atorvastatin Calcium 20 mg HS PO Last administered on 06/19/25at 21:19; Start 06/19/25 at 21:00; Stop 07/19/25 at 20:59 Dextrose/Sodium Chloride 1,000 ml @ 150 mls/hr Q6H40M IV Last administered on 06/20/25at 11:01; Start 06/19/25 at 12:00; Stop 07/19/25 at 11:59 Insulin Human Regular INSULIN SLIDING SCAL... ACHS SQ; Start 06/20/25 at 07:30; Stop 07/20/25 at 07:29 CARSON ALICIA Jr. PAC Jun 20, 2025 13:51
--- NOTE | 2025-06-20 14:15 | NUR ---
PER [employer] THEY WONT BE ABLE TO GET TO PT AT THIS MOMENT BUT WILL GIVE ME A CALL 30 MINS BEFORE TRANSPORTING PATIENT TO MRI. MEDICATION IS ALREADY ORDERED FOR PATIENT.
--- NOTE | 2025-06-20 16:17 | PN ---
GASTROENTEROLOGY PROGRESS NOTE Date of Visit: Jun 20, 2025 Time of Visit: 16:16 Events / Notes: [Patient remains hemodynamically stable. WBC of 7.7, hemoglobin 13.8, platelets 153. Glucose 116, CRP trending down at 77.3, albumin 2.7, lipase at 14. total bilirubin now normal at 1.0. Ultrasound showing hepatomegaly with mild fatty infiltration. Status post cholecystectomy with common bile duct measuring 5 mm within normal limits for post cholecystectomy status. Limited visualization of pancreas due to bowel gas artifact no definite peripancreatic fluid or pseudocyst seen in the visualized region. Normal right kidney measuring 13.3 By 6.1 x 6.3 cm with no calculus, hydronephrosis, or for focal lesions. MRCP pending. Patient resting in chair. VSS. No c/o reported. He reports taking tejocote root from [place] for weight loss. Informed we will wait for MRCP results. He v/u. ] Review of Systems: CONSTITUTIONAL: No malaise or change in sensation of wellbeing. ENMT: No rhinorrhea, otorrhea, sinus pain, ear ache. CARDIOVASCULAR: No angina, palpitations, orthopnea or paroxysmal dyspnea. RESPIRATORY: No SOB. GASTROINTESTINAL: No abdominal pain, nausea, vomiting, diarrhea, hematemesis, melena or change in the patient's habitual bowel movements consistency/number. GENITOURINARY: No dysuria, hematuria or change in bladder continence. MUSCULOSKELETAL: No new muscle pain or decrease in muscular strength. No new joint swelling, redness or tenderness. SKIN: No new rash. Physical Exam: GEN: Awake, alert, oriented in person, time and place, and in no acute distress. HEENT: No rhinorrhea. Oral mucosa is pink, moist and within normal limits. CHEST: Lung auscultation revealed normal breath sounds bilaterally. CARDIAC:Heart sounds are regular. ABD: Soft, non-tender and not distended. No peritoneal signs on palpation. Normal bowel sounds. Last bm 06/17/25 EXT: No cyanosis or clubbing. No edema. SKIN: Intact. No rashes. NEURO: Alert and oriented to name, place and person.No focal motor deficits. Normal speech. Vital Signs (last 8hr) Date Time Temp Pulse Resp B/P (MAP) Pulse Ox O2 Delivery O2 Flow Rate FiO2 06/20/25 12:00 98.2 57 18 156/81 95 Room Air 06/20/25 10:32 56 18 N/A Room Air 21 Laboratory: [ ] Laboratory: Test 06/20/25 15:43 06/20/25 04:29 06/19/25 06:40 06/18/25 18:58 Range/Units Whole Blood Glucose 124 H 70-110 MG/DL White Blood Count 7.7 # 4.8-10.8 K/uL Red Blood Count 4.49 L 4.50-6.20 MIL/uL Hemoglobin 13.8 L 14.0-18.0 g/dL Hematocrit 42.0 42-54 % Mean Corpuscular Volume 93.5 79-99 fL Mean Corpuscular Hemoglobin 30.7 27.0-33.0 pg Mean Corpuscular Hemoglobin Concent 32.9 32.0-36.0 g/dL Red Cell Distribution Width 13.1 11.0-15.5 % Platelet Count 153 130-400 K/uL Mean Platelet Volume 10.1 7.5-10.5 fL Nucleated Red Blood Cells 0.0 0.0-0.19 % Sodium Level 141 136-145 mmol/L Potassium Level 4.8 3.5-5.1 mmol/L Chloride Level 104 101-111 mmol/L Carbon Dioxide Level 29 21-32 mmol/L Blood Urea Nitrogen 15 7-18 mg/dL Creatinine 0.7 0.5-1.3 mg/dL Glomerular Filtration Rate Calc 105 >90 mL/min Random Glucose 116 #H 70-105 mg/dL Total Calcium 8.5 8.5-10.1 mg/dL Total Bilirubin 1.0 0.2-1.0 mg/dL Aspartate Amino Transf (AST/SGOT) 23 10-37 U/L Alanine Aminotransferase (ALT/SGPT) 21 12-78 U/L Alkaline Phosphatase 58 50-136 U/L C-Reactive Protein, Quantitative 77.30 H 0.5-3.0 mg/L Total Protein 6.4 6.0-8.3 g/dL Albumin 2.7 L 3.5-5.0 g/dL Lipase 14 L 16-77 U/L Immature Granulocyte % (Auto) 0.6 0-1 % Neutrophils (%) (Auto) 76.3 40.0-77.0 % Lymphocytes (%) (Auto) 11.9 L 21.0-51.0 % Monocytes (%) (Auto) 10.3 3.0-13.0 % Eosinophils (%) (Auto) 0.5 0.0-8.0 % Basophils (%) (Auto) 0.4 0.0-5.0 % Neutrophils # (Auto) 7.8 H 1.8-7.7 K/uL Lymphocytes # (Auto) 1.2 1.0-4.8 K/uL Monocytes # (Auto) 1.1 H 0.1-1.0 K/uL Eosinophils # (Auto) 0.05 0.00-0.70 K/uL Basophils # (Auto) 0.04 0.00-0.20 K/uL Absolute Immature Granulocyte (auto 0.06 0-1 K/uL Magnesium Level 1.90 1.80-2.40 mg/dL Erythrocyte Sedimentation Rate 15 0-20 MM/HR Hemoglobin A1c 7.1 H 4.0-6.0 % Estimated Average Glucose (eAG) 157 H 70-126 mg/dL Lactate Dehydrogenase 119 81-234 U/L Total Creatine Kinase 126 # 21-232 U/L Troponin I High Sensitivity 51.8 4-75 ng/L Triglycerides Level 51 30-200 mg/dL Cholesterol Level 151 <200 mg/dL LDL Cholesterol 76 0-99 mg/dL HDL Cholesterol 59 29-71 mg/dL Amylase Level 43 # 25-115 U/L Procalcitonin < 0.05 L 0.05-0.5 ng/mL Thyroid Stimulating Hormone (TSH) 1.24 # 0.36-3.74 uIU/mL Current Medications Medications (Trade) Dose Ordered Sig/Kilo Route PRN Reason Start Time Stop Time Status Last Admin Dose Admin Acetaminophen (TYLenol 325MG TAB) 650 mg Q6H PRN PO MILD PAIN (1-3) 06/18/25 19:00 07/18/25 18:59 Albuterol (DUOneb) 1 udvial Q6H PRN IH SHORTNESS OF BREATH 06/18/25 19:00 07/18/25 18:59 Aspirin (Aspirin 81mg Ec Tab) 81 mg DAILY PO 06/20/25 09:00 07/20/25 08:59 Atorvastatin Calcium (LIPItor 20MG) 20 mg HS PO 06/19/25 21:00 07/19/25 20:59 06/19/25 21:19 20 MG Dextrose (D50w) 50 ml AD PRN IV HYPOGLYCEMIA PROTOCOL 06/18/25 20:00 07/18/25 19:59 Dextrose/Sodium Chloride 1,000 ml @ 150 mls/hr Q6H40M IV 06/19/25 12:00 07/19/25 11:59 06/20/25 11:01 150 MLS/HR Diphenhydramine HCl (BENAdryl INJ) 25 mg Q6H PRN IV ITCHING/ rash 06/18/25 19:30 07/18/25 19:29 Enoxaparin Sodium (Lovenox) 40 mg DAILY SQ 06/19/25 09:00 06/19/25 08:36 DC Enoxaparin Sodium (Lovenox) 40 mg HS SQ 06/19/25 21:00 07/19/25 08:59 06/19/25 20:34 40 MG Glucagon (Glucagon 1mg Kit) 1 mg AD PRN IM HYPOGLYCEMIA PROTOCOL 06/18/25 20:00 07/18/25 19:59 Hydralazine HCl (APRESOLine 20MG INJ) 10 mg Q6H PRN IV ADMINISTER FOR SBP > 170 06/18/25 19:00 07/18/25 18:59 Hydromorphone HCl (DiLAUDid 0.5MG INJ) 0.5 mg Q6H PRN IVP SEVERE PAIN (7-10) 06/18/25 20:30 06/23/25 20:29 06/19/25 01:02 0.5 MG Insulin Human Regular (humuLIN R 100 UNIT/ML 3ML) INSULIN SLIDING SCAL... ACHS SQ 06/18/25 21:00 06/20/25 07:31 DC Insulin Human Regular (humuLIN R 100 UNIT/ML 3ML) INSULIN SLIDING SCAL... ACHS SQ 06/20/25 07:30 07/20/25 07:29 Ketorolac Tromethamine (toRADol) 15 mg Q12H PRN IV MODERATE PAIN (4-6) 06/18/25 20:30 06/21/25 20:30 Lactated Ringer's 1,000 ml @ 150 mls/hr Q6H40M IV 06/18/25 19:00 06/19/25 11:44 DC 06/19/25 01:02 150 MLS/HR Lisinopril (Prinivil 10mg) 10 mg DAILY PO 06/20/25 09:00 07/20/25 08:59 Magnesium Sulfate 50 ml @ 0 mls/hr PROTOCOL IV 06/18/25 19:00 07/18/25 18:59 Meropenem (Merrem 1gm) 1 gm Q8H IVPB 06/18/25 19:30 06/28/25 19:29 06/20/25 11:01 1 GM Ondansetron HCl (zoFRAN 4MG INJ) 4 mg Q6H PRN IVP NAUSEA/VOMITING 06/18/25 19:00 07/18/25 18:59 06/19/25 01:02 4 MG Pantoprazole Sodium (PROTonix 40MG INJ) 40 mg DAILY IVP 06/19/25 09:00 07/19/25 08:59 06/20/25 11:00 40 MG Pharmacy Profile Note (Pharmacy Communication) 1 each ONCE MISC 06/18/25 19:30 06/18/25 19:11 DC Potassium Chloride 100 ml @ 100 mls/hr AD PRN IV POTASSIUM PROTOCOL 06/18/25 19:00 07/18/25 18:59 Potassium Chloride (K-Dur/Klor-Con 20meq) 20 meq AD PRN PO POTASSIUM PROTOCOL 06/18/25 19:00 07/18/25 18:59 Potassium Chloride (KCl 10% Elixir 20meq/15ml) 20 meq AD PRN PO POTASSIUM PROTOCOL 06/18/25 19:00 07/18/25 18:59 Thiamine HCl (Vitamin B-1) 100 mg Q24H IVP 06/18/25 19:00 07/18/25 18:59 06/18/25 20:04 100 MG Diagnostics / Radiology: [COPY/PASTE HERE IF NO REPORTS PLEASE DELETE SECTION] Assessment: [Abdominal pain Acute Pancreatitis Type 2 Diabetes Hypertension ] Possible causes to consider include alcohol, idiopathic, hypertriglyceridemia, medications, hypercalcemia, ERCP, celiac disease, autoimmune pancreatitis, vasculitis Plan: Case discussed Dr. Love 1. NPO for MRI MRCP 2. Aggressive IV fluids lactated Ringer's 200-400 mL/hour for 12-24 hours to maintain adequate pancreatic perfusion and prevent ischemic necrosis 3. Supportive care with opioid analgesics (avoid NSAIDs) and antiemetics 4. Close patient monitoring of vital signs including O2 saturations, urine output, and electrolyte replacement 5. Resume oral intake within two days if the pain is decreasing and there is no ileus with a low fat, low residue diet. Advance as tolerated 6. Consider CT with IV contrast after 48 hours of aggressive IVF to assess for necrosis if the patient is not progressing. Seven. If oral diet is not tolerated, naso jejunal tube feeds are preferred overt TPN Thank you for allowing us to participate in the care of this patient! ] SIENNA MÉNDEZ Jun 20, 2025 16:16
--- NOTE | 2025-06-20 20:53 | PN ---
INFECTIOUS DISEASE PROGRESS NOTE Date of Service: Jun 20, 2025 SUBJECTIVE: This is a 59-year-old male patient who was [facility] the [facility] for evaluation of acute pancreatitis. The CT of the abdomen and pelvis showed a acute severe pancreatitis. On admission patient had a WBC of 14.2 which has trended down to 7.7 today. Patient is afebrile this morning, temperature is 98.8. No reports of nausea or vomiting this morning. We will continue on Meropenem as currently ordered. PHYSICAL EXAM EYES: Anicteric. Pupils equal and reactive. HENT: No oral thrush seen, moist Oral mucosa. NECK: Supple, no JVD or thyromegaly. LUNGS: Good air entry. No rales, no rhonchi. CARDIOVASCULAR: S1, S2 regular. No murmur heard. ABDOMEN: Soft, non tender, bowel sounds present, no organomegaly. CENTRAL NERVOUS SYSTEM: Awake, alert, oriented x 3. SKIN: No rashes, no swelling. LYMPHATICS: No peripheral lymphadenopathy MUSCULOSKELETAL: No joint swelling, erythema or tenderness. EXTREMITIES: No cyanosis or clubbing. BACK: No deformity, no pressure ulcer. GENITOURINARY: No dysuria or hematuria. Vital Sign (Last 12 Hours) 06/20/25 06/20/25 06/20/25 06/20/25 10:32 12:00 16:00 20:00 Temp 98.2 98.1 98.4 Pulse 56 57 56 60 Resp 18 18 18 16 B/P (MAP) 156/81 161/74 113/77 Pulse Ox 95 95 94 O2 Delivery N/A Room Air Room Air Room Air Room Air FiO2 21 Intake & Output (last 24hrs) 06/19/25 06/19/25 06/20/25 15:00 23:00 07:00 Intake Total 1202.0 ml 1600.0 ml Balance 1202.0 ml 1600.0 ml LABS: Laboratory: Test 06/20/25 19:23 06/20/25 04:29 06/19/25 06:40 Range/Units Whole Blood Glucose 107 70-110 MG/DL White Blood Count 7.7 # 4.8-10.8 K/uL Red Blood Count 4.49 L 4.50-6.20 MIL/uL Hemoglobin 13.8 L 14.0-18.0 g/dL Hematocrit 42.0 42-54 % Mean Corpuscular Volume 93.5 79-99 fL Mean Corpuscular Hemoglobin 30.7 27.0-33.0 pg Mean Corpuscular Hemoglobin Concent 32.9 32.0-36.0 g/dL Red Cell Distribution Width 13.1 11.0-15.5 % Platelet Count 153 130-400 K/uL Mean Platelet Volume 10.1 7.5-10.5 fL Nucleated Red Blood Cells 0.0 0.0-0.19 % Sodium Level 141 136-145 mmol/L Potassium Level 4.8 3.5-5.1 mmol/L Chloride Level 104 101-111 mmol/L Carbon Dioxide Level 29 21-32 mmol/L Blood Urea Nitrogen 15 7-18 mg/dL Creatinine 0.7 0.5-1.3 mg/dL Glomerular Filtration Rate Calc 105 >90 mL/min Random Glucose 116 #H 70-105 mg/dL Total Calcium 8.5 8.5-10.1 mg/dL Total Bilirubin 1.0 0.2-1.0 mg/dL Aspartate Amino Transf (AST/SGOT) 23 10-37 U/L Alanine Aminotransferase (ALT/SGPT) 21 12-78 U/L Alkaline Phosphatase 58 50-136 U/L C-Reactive Protein, Quantitative 77.30 H 0.5-3.0 mg/L Total Protein 6.4 6.0-8.3 g/dL Albumin 2.7 L 3.5-5.0 g/dL Lipase 14 L 16-77 U/L Immature Granulocyte % (Auto) 0.6 0-1 % Neutrophils (%) (Auto) 76.3 40.0-77.0 % Lymphocytes (%) (Auto) 11.9 L 21.0-51.0 % Monocytes (%) (Auto) 10.3 3.0-13.0 % Eosinophils (%) (Auto) 0.5 0.0-8.0 % Basophils (%) (Auto) 0.4 0.0-5.0 % Neutrophils # (Auto) 7.8 H 1.8-7.7 K/uL Lymphocytes # (Auto) 1.2 1.0-4.8 K/uL Monocytes # (Auto) 1.1 H 0.1-1.0 K/uL Eosinophils # (Auto) 0.05 0.00-0.70 K/uL Basophils # (Auto) 0.04 0.00-0.20 K/uL Absolute Immature Granulocyte (auto 0.06 0-1 K/uL Magnesium Level 1.90 1.80-2.40 mg/dL DIAGNOSTICS / RADIOLOGY: PATIENT: JAH ALICIA MR#: [id number] : 1965 SEX: M AGE: 59 LOCATION: [facility] ORDER 2300 STATUS: ADM IN REPORT#: [id number] SERVICE 0600 REASON: acute pancreatitis, r/o necrotizing pancreatitis/abscess, pancreas protocol ORDERING PHYSICIAN: PÉREZ GUZMAN MD PROCEDURE: ABD PEL W - CT ABDOMEN/PELVIS W/CONTRAST ADDENDUM REPORT ADDENDUM: Results were shared by telephone at 13:59 pm on 06-19-25 and acknowledged by Pérez Bond /[facility] Abdomen and Pelvis CT with contrast Comparison: None Indication:acute pancreatitis, r/o necrotizing pancreatitis/abscess, pancreas protocol Technique: 5 mm thick axial images were obtained through the abdomen and pelvis before and after the administration of 150ml of intravenous contrast . 1.25 mm thick axial images as well as coronal and sagittal reformatted images were also submitted for interpretation. Findings: The visualized portions of the lungs are normal in appearance. The visualized portion of the heart is normal in size without pericardial effusion. The abdominal aorta demonstrates no evidence of focal aneurysmal dilitation or dissection. Post cholecystectomy status of gall bladder . Intrapancreatic - diffuse enlargement with edema. Peripancreatic / extrapancreatic - irregular pancreatic outline, obliterated peripancreatic fat, retroperitoneal edema, fluid in the lesser sac, fluid in the left anterior pararenal space Thickening of inflamed Gerota's fascia, which becomes visible with pancreatic ascites, pleural effusion (seen on basal cuts of the pleural cavity). The liver is normal in size without focal hepatic lesions. No intrahepatic ductal dilatation is seen. The hepatic and portal veins are patent. The common bile duct, spleen, adrenals and kidneys are normal in appearance. No hydronephrosis or radio-opaque calculi are visualized. The urinary bladder is within normal limits. Mild prostatomegaly noted . The colon is normal in appearance and without wall thickening or inflammatory change. No intraperitoneal free air or fluid is visualized. No pathologic lymphadenopathy is seen. There are no osseous or soft tissue abnormalities. Impression: GRADE E ACUTE SEVERE PANCREATITIS WITH A CTSI SCORE OF 8/10 [30- 50 PERCENT NECROSIS} /[place] DICTATED BY: STEF BATEMAN MD DATE: 06/19/25 1404 ASSESSMENT: Acute on chronic pancreatitis. Leukocytosis resolving. Diabetes mellitus. Abdominal pain. Obesity. PLAN: Continue Meropenem. Continue pain management. Continue IV fluids. We will follow up on the cultures. Continue antidiabetics. Pending MRCP for today. This case was reviewed and discussed with my supervising physician Dr. Ceron and the above assessment and plan was formulated and agreed upon. ATTESTATION BY PHYSICIAN I have seen and examined the patient. I reviewed the documentation, medical decision making, and treatment plan as noted by the mid-level provider above. I agree with the findings and plan of care. PARIS CERON MD, MIRTA [facility] Jun 20, 2025 20:53
--- NOTE | 2025-06-20 21:57 | PN ---
Endocrinology progress note DOS:06/20/25 subjective: Patient underwent a CT abdomen pelvis without IV contrast which showed findings of extensive peripancreatic edema with stranding with peripancreatic prominent lymph nodes in fluid tracking to the anterior left pararenal space. Patient was also found to have focus of gas and distal pancreas with necrotizing pancreatitis/pancreatic abscess which could not be ruled out. Patient will be admitted under hospitalist service. Patient will be kept NPO and will receive aggressive IV fluid resuscitation. [place] [id number] on labs in [facility], patient will receive broad-spectrum antibiotics with IV meropenem. Home diabetic regimen: tresiba 80 units daily, novolog 30 units qac before meals, jardiance 2 5 mg daily, actos 30 mg daily and metformin 1000 mg bid, Hba1c 7.1% .. REVIEW OF SYSTEMS CONSTITUTIONAL: normal. NEUROLOGICAL: Denies headache, amaurosis fugax, motor weakness, sensory deficit, vertigo/spinning sensation, gait abnormalities, or tremors. ENT: No hearing loss, otalgia, otorrhea, rhinitis, rhinorrhea, hoarseness, or sore throat. CARDIOVASCULAR: Denies any exertional angina, dyspnea on exertion, orthopnea, paroxysmal nocturnal dyspnea, palpitations, life-threatening arrhythmias, claudication. PULMONARY: Denies any shortness of breath, cough, phlegm/sputum, hemoptysis, pleuritic chest pain. SLEEP: Denies morning headaches, daytime somnolence or napping. Denies difficulty falling asleep, staying asleep, waking from sleep. Denies knowledge of snoring. GASTROINTESTINAL: Nausea, vomiting , epigastric abdominal pain-improving GENITOURINARY: Denies frequency, urgency, nocturia, hematuria or incontinence (Storage/Irritative symptoms.) Low urinary stream, straining to void, urinary intermittency or hesitancy, splitting of the voiding stream, terminal dribbling. ENDOCRINOLOGIC: Denies polyuria, polydipsia, polyphagia or heat/cold intolerances. HEMATOLOGIC: Denies thrombophilia/previous clots, or coagulopathy/bleeding disorders. ONCOLOGIC: Denies personal history of malignancy. DERMATOLOGIC: Denies rashes or pruritus. PSYCHIATRIC: Denies any suicidal or homicidal ideation. Denies hallucinations. 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, history of cholelithiasis and cholecystitis in 2019 PAST SURGICAL HISTORY: History of cholecystectomy in 2020, abdominal hernia repair with mesh couple of years ago PAST SOCIAL HISTORY: Denies any active smoking, alcohol consumption, denies any illicit drug use, patient is ambulatory at home and independent with ADLs and IADLs FAMILY HISTORY: Denies any family history of GI disorders of pancreatitis Allergies: Patient reports having to be allergic reaction to penicillin in childhood possibly anaphylaxis Home medications: Patient reports being on Tresiba 80 units in the morning, lisinopril 10 mg daily, Crestor, metformin, patient reports he mealtime insulin of Humalog 30 units Coded Allergies: Penicillins (Verified Allergy, Unknown, 07/28/20) DIAGNOSTICS / RADIOLOGY: Patient underwent CT abdomen pelvis without IV contrast in [facility] which showed findings of extensive peripancreatic edema and stranding with peripancreatic prominent lymph nodes and fluid tracking to the anterior left pararenal space. Focus of gas is seen in the distal pancreatic body. Impression: Acute pancreatitis. Focus of gas distal pancreas is indeterminate but suspicious. If not contraindicated, consider contrast syndrome and CT abdomen and pelvis to exclude pancreatic necrosis and abscess formation. Indeterminate adrenal gland nodules, patient noted to have indeterminate right adrenal 20 mm nodule in left adrenal 9 mm nodule. Colonic diverticulosis. ASSESSMENT: Acute pancreatitis, POA unclear etiology. s/p cholecystectomy, triglyceride is normal. denies alcohol use. off ozempic for 3 years. uncontrolled DM-2, POA Home diabetic regimen: tresiba 80 units daily, novolog 30 units qac before meals, jardiance 2 5 mg daily, actos 30 mg daily and metformin 1000 mg bid, Hba1c 7.1% glucose runs less than 180 mg/dl. I saw this patient recently in clinic in 03/2025 Rule out necrotizing pancreatitis/pancreatic abscess, POA Leukocytosis, POA History of complicated pancreatitis with necrotizing pancreatitis with pseudocyst in 2020 Status post cholecystectomy, POA History of Jardiance use as outpatient, POA Bilateral adrenal gland indeterminate nodules, POA ( right adrenal gland measuring 2 cm and left adrenal gland measuring 0.9 cm) History of hypertension, POA Hyperlipidemia, POA Type 2 diabetes mellitus, POA History of abdominal hernia repair with mesh, POA Diverticulosis, POA PLAN: start Lantus 20 units daily and adjust for fasting glucose. start Regular insulin before meals if daytime hyperglycemia. Continue medium dose sliding scale insulin. Monitor glucose q x 6 hourly. Continue carb consistent diet. Keep glucose less than 180 mg/dl. patient is npo. Vitals/Labs Vital Signs Date Time Temp Pulse Resp B/P (MAP) Pulse Ox O2 Delivery O2 Flow Rate FiO2 06/20/25 20:00 98.4 60 16 113/77 94 Room Air 06/20/25 10:32 21 06/20/25 07:39 0 Laboratory Tests 06/20/25 04:29 Medications Current Medications Thiamine HCl 100 mg Q24H IVP Last administered on 06/20/25at 19:38; Start 06/18/25 at 19:00; Stop 07/18/25 at 18:59 Sodium Chloride 1,000 ml @ 0 mls/hr ONCE ONCE IV Last administered on 06/18/25at 19:07; Start 06/18/25 at 19:00; Stop 06/18/25 at 19:01; Status DC Lactated Ringer's 1,000 ml @ 150 mls/hr Q6H40M IV Last administered on 06/19/25at 01:02; Start 06/18/25 at 19:00; Stop 06/19/25 at 11:44; Status DC Pantoprazole Sodium 40 mg DAILY IVP Last administered on 06/20/25at 11:00; Start 06/19/25 at 09:00; Stop 07/19/25 at 08:59 Acetaminophen 650 mg Q6H PRN PO; Start 06/18/25 at 19:00; Stop 07/18/25 at 18:59 Ondansetron HCl 4 mg Q6H PRN IVP Last administered on 06/19/25at 01:02; Start 06/18/25 at 19:00; Stop 07/18/25 at 18:59 Albuterol 1 udvial Q6H PRN IH; Start 06/18/25 at 19:00; Stop 07/18/25 at 18:59 Insulin Human Regular INSULIN SLIDING SCAL... ACHS SQ; Start 06/18/25 at 21:00; Stop 06/20/25 at 07:31; Status DC Potassium Chloride 100 ml @ 100 mls/hr AD PRN IV; Start 06/18/25 at 19:00; Stop 07/18/25 at 18:59 Potassium Chloride 20 meq AD PRN PO; Start 06/18/25 at 19:00; Stop 07/18/25 at 18:59 Potassium Chloride 20 meq AD PRN PO; Start 06/18/25 at 19:00; Stop 07/18/25 at 18:59 Magnesium Sulfate 50 ml @ 0 mls/hr PROTOCOL IV; Start 06/18/25 at 19:00; Stop 07/18/25 at 18:59 Hydralazine HCl 10 mg Q6H PRN IV; Start 06/18/25 at 19:00; Stop 07/18/25 at 18:59 Pharmacy Profile Note 1 each ONCE MISC; Start 06/18/25 at 19:30; Stop 06/18/25 at 19:11; Status DC Meropenem 1 gm Q8H IVPB Last administered on 06/20/25at 19:38; Start 06/18/25 at 19:30; Stop 06/28/25 at 19:29 Diphenhydramine HCl 25 mg Q6H PRN IV; Start 06/18/25 at 19:30; Stop 07/18/25 at 19:29 Dextrose 50 ml AD PRN IV; Start 06/18/25 at 20:00; Stop 07/18/25 at 19:59 Glucagon 1 mg AD PRN IM; Start 06/18/25 at 20:00; Stop 07/18/25 at 19:59 Hydromorphone HCl 0.5 mg Q6H PRN IVP Last administered on 06/19/25at 01:02; Start 06/18/25 at 20:30; Stop 06/23/25 at 20:29 Ketorolac Tromethamine 15 mg Q12H PRN IV; Start 06/18/25 at 20:30; Stop 06/21/25 at 20:30 Enoxaparin Sodium 40 mg DAILY SQ; Start 06/19/25 at 09:00; Stop 06/19/25 at 08:36; Status DC Iohexol 35,000 mg STK-MED ONCE IV; Start 06/19/25 at 06:17; Stop 06/19/25 at 06:17; Status DC Enoxaparin Sodium 40 mg HS SQ Last administered on 06/20/25at 20:24; Start 06/19/25 at 21:00; Stop 07/19/25 at 08:59 Aspirin 81 mg DAILY PO; Start 06/20/25 at 09:00; Stop 07/20/25 at 08:59 Lisinopril 10 mg DAILY PO; Start 06/20/25 at 09:00; Stop 07/20/25 at 08:59 Atorvastatin Calcium 20 mg HS PO Last administered on 06/20/25at 20:24; Start 06/19/25 at 21:00; Stop 07/19/25 at 20:59 Dextrose/Sodium Chloride 1,000 ml @ 150 mls/hr Q6H40M IV Last administered on 06/20/25at 21:40; Start 06/19/25 at 12:00; Stop 07/19/25 at 11:59 Insulin Human Regular INSULIN SLIDING SCAL... ACHS SQ; Start 06/20/25 at 07:30; Stop 07/20/25 at 07:29 Alprazolam 0.5 mg ONCE ONCE PO; Start 06/20/25 at 14:30; Stop 06/20/25 at 14:31; Status DC Alprazolam 0.5 mg ONCE PO Last administered on 06/20/25at 18:38; Start 06/20/25 at 19:00; Stop 06/20/25 at 23:59 JESSIE JALLOH MD Jun 20, 2025 21:57
[2025-06-21] VITALS (11 sets, daily range): BP systolic 127–145; BP diastolic 73–86; PULSE 50–74; RESP 18–20; TEMP 97.8–98.3; O2SAT 96–98
[2025-06-21 05:40] LABS: IMMATURE GRANULOCYTE ABSOLUTE 0.02 K/uL (0-1); NUCLEATED RED BLOOD CELLS 0.0 % (0.0-0.19); PLATELET COUNT (AUTO) 177 K/uL (130-400); RED BLOOD CELL COUNT(AUTO) 4.50 MIL/uL (4.50-6.20); RED CELL DISTRIBUTION WIDTH 12.8 % (11.0-15.5); WHITE BLOOD COUNT (AUTO) 6.1 K/uL (4.8-10.8)
[2025-06-21 05:58] LABS: ASPARTATE AMINOTRANSFERASE 23.0 U/L (10-37); CREATININE 0.7 mg/dL (0.5-1.3); GLOMERULAR FILTR. RATE CALC 105.0 mL/min (>90); GLUCOSE,RANDOM 142.0 mg/dL (70-105); SODIUM SERUM 140.0 mmol/L (136-145); TOTAL PROTEIN, SERUM 6.3 g/dL (6.0-8.3); UREA NITROGEN, BLOOD 11.0 mg/dL (7-18)
--- NOTE | 2025-06-21 15:19 | PN ---
This is a 59-year-old male with concerns of acute complicated pancreatitis Interval history: This 59-year-old male seen in his room resting Patient is able to undergo MRCP yesterday but currently pending results No abdominal pain reported Patient remains NPO patient on IV fluids Physical exam General: Awake alert and oriented Heart: Regular rate and rhythm} Lungs: Clear to auscultation no distress Abdomen: [Soft, nontender, nondistended Assessment : This is a 59-year-old male with concerns of acute complicated pancreatitis Plan: With no symptoms of discomfort patient will be allowed clear liquids Patient to advance diet as tolerated Nursing to report MRCP findings once completed Surgical team to be updated with any further acute events Surgical case has been discussed with my supervising physician in the above plan was formulated and agreed upon We appreciate the hospitalist team for us to participate in patient's care. Greater than 45 minutes of time spent patient, reviewing chart, working on documentation Vitals/Labs Vital Signs Date Time Temp Pulse Resp B/P (MAP) Pulse Ox O2 Delivery O2 Flow Rate FiO2 06/21/25 12:00 97.9 53 18 142/86 97 Room Air 06/21/25 08:57 0 21 Laboratory Tests 06/21/25 05:03 Medications Current Medications Thiamine HCl 100 mg Q24H IVP Last administered on 06/20/25at 19:38; Start 06/18/25 at 19:00; Stop 07/18/25 at 18:59 Sodium Chloride 1,000 ml @ 0 mls/hr ONCE ONCE IV Last administered on 06/18/25at 19:07; Start 06/18/25 at 19:00; Stop 06/18/25 at 19:01; Status DC Lactated Ringer's 1,000 ml @ 150 mls/hr Q6H40M IV Last administered on 06/19/25at 01:02; Start 06/18/25 at 19:00; Stop 06/19/25 at 11:44; Status DC Pantoprazole Sodium 40 mg DAILY IVP Last administered on 06/21/25at 08:57; Start 06/19/25 at 09:00; Stop 07/19/25 at 08:59 Acetaminophen 650 mg Q6H PRN PO; Start 06/18/25 at 19:00; Stop 07/18/25 at 18:59 Ondansetron HCl 4 mg Q6H PRN IVP Last administered on 06/19/25at 01:02; Start 06/18/25 at 19:00; Stop 07/18/25 at 18:59 Albuterol 1 udvial Q6H PRN IH; Start 06/18/25 at 19:00; Stop 07/18/25 at 18:59 Insulin Human Regular INSULIN SLIDING SCAL... ACHS SQ; Start 06/18/25 at 21:00; Stop 06/20/25 at 07:31; Status DC Potassium Chloride 100 ml @ 100 mls/hr AD PRN IV; Start 06/18/25 at 19:00; Stop 07/18/25 at 18:59 Potassium Chloride 20 meq AD PRN PO; Start 06/18/25 at 19:00; Stop 07/18/25 at 18:59 Potassium Chloride 20 meq AD PRN PO; Start 06/18/25 at 19:00; Stop 07/18/25 at 18:59 Magnesium Sulfate 50 ml @ 0 mls/hr PROTOCOL IV; Start 06/18/25 at 19:00; Stop 07/18/25 at 18:59 Hydralazine HCl 10 mg Q6H PRN IV; Start 06/18/25 at 19:00; Stop 07/18/25 at 18:59 Pharmacy Profile Note 1 each ONCE MISC; Start 06/18/25 at 19:30; Stop 06/18/25 at 19:11; Status DC Meropenem 1 gm Q8H IVPB Last administered on 06/21/25at 11:27; Start 06/18/25 at 19:30; Stop 06/28/25 at 19:29 Diphenhydramine HCl 25 mg Q6H PRN IV; Start 06/18/25 at 19:30; Stop 07/18/25 at 19:29 Dextrose 50 ml AD PRN IV; Start 06/18/25 at 20:00; Stop 07/18/25 at 19:59 Glucagon 1 mg AD PRN IM; Start 06/18/25 at 20:00; Stop 07/18/25 at 19:59 Hydromorphone HCl 0.5 mg Q6H PRN IVP Last administered on 06/19/25at 01:02; Start 06/18/25 at 20:30; Stop 06/23/25 at 20:29 Ketorolac Tromethamine 15 mg Q12H PRN IV; Start 06/18/25 at 20:30; Stop 06/21/25 at 20:30 Enoxaparin Sodium 40 mg DAILY SQ; Start 06/19/25 at 09:00; Stop 06/19/25 at 08:36; Status DC Iohexol 35,000 mg STK-MED ONCE IV; Start 06/19/25 at 06:17; Stop 06/19/25 at 06:17; Status DC Enoxaparin Sodium 40 mg HS SQ Last administered on 06/20/25at 20:24; Start 06/19/25 at 21:00; Stop 07/19/25 at 08:59 Aspirin 81 mg DAILY PO; Start 06/20/25 at 09:00; Stop 07/20/25 at 08:59 Lisinopril 10 mg DAILY PO; Start 06/20/25 at 09:00; Stop 07/20/25 at 08:59 Atorvastatin Calcium 20 mg HS PO Last administered on 06/20/25at 20:24; Start 06/19/25 at 21:00; Stop 07/19/25 at 20:59 Dextrose/Sodium Chloride 1,000 ml @ 80 mls/hr [id number] IV Last administered on 06/21/25at 08:57; Start 06/19/25 at 12:00; Stop 07/19/25 at 11:59 Insulin Human Regular INSULIN SLIDING SCAL... ACHS SQ; Start 06/20/25 at 07:30; Stop 07/20/25 at 07:29 Alprazolam 0.5 mg ONCE ONCE PO; Start 06/20/25 at 14:30; Stop 06/20/25 at 14:31; Status DC Alprazolam 0.5 mg ONCE PO Last administered on 06/20/25at 18:38; Start 06/20/25 at 19:00; Stop 06/20/25 at 23:59; Status DC CARSON ALICIA Jr. PAC Jun 21, 2025 15:19
--- NOTE | 2025-06-21 15:20 | PN ---
GASTROENTEROLOGY PROGRESS NOTE Date of Visit: Jun 21, 2025 Time of Visit: 15:16 Events / Notes: [Patient remains hemodynamically stable. WBC of 7.7, hemoglobin 13.8, platelets 153. Glucose 116, CRP trending down at 77.3, albumin 2.7, lipase at 14. total bilirubin now normal at 1.0. Ultrasound showing hepatomegaly with mild fatty infiltration. Status post cholecystectomy with common bile duct measuring 5 mm within normal limits for post cholecystectomy status. Limited visualization of pancreas due to bowel gas artifact no definite peripancreatic fluid or pseudocyst seen in the visualized region. Normal right kidney measuring 13.3 By 6.1 x 6.3 cm with no calculus, hydronephrosis, or for focal lesions. MRCP pending. Patient resting in chair. VSS. No c/o reported. He reports taking tejocote root from [place] for weight loss. Informed we will wait for MRCP results. He v/u. 06/21/25: No acute events overnight. Patient remains hemodynamically stable. Patient is tolerating fluids without any nausea or vomiting. Continues on mancilla toprazole 40 mg IV daily. He has not received any pain medicine in the past two days. MRCP pending. On exam, patient is sitting in bed in no acute distress. He reports he has not had anymore abdominal pain. Informed of pending MRCP results. He v/u. ] Review of Systems: CONSTITUTIONAL: No malaise or change in sensation of wellbeing. ENMT: No rhinorrhea, otorrhea, sinus pain, ear ache. CARDIOVASCULAR: No angina, palpitations, orthopnea or paroxysmal dyspnea. RESPIRATORY: No SOB. GASTROINTESTINAL: No abdominal pain, nausea, vomiting, diarrhea, hematemesis, melena or change in the patient's habitual bowel movements consistency/number. GENITOURINARY: No dysuria, hematuria or change in bladder continence. MUSCULOSKELETAL: No new muscle pain or decrease in muscular strength. No new joint swelling, redness or tenderness. SKIN: No new rash. Physical Exam: GEN: Awake, alert, oriented in person, time and place, and in no acute distress. HEENT: No rhinorrhea. Oral mucosa is pink, moist and within normal limits. CHEST: Lung auscultation revealed normal breath sounds bilaterally. CARDIAC:Heart sounds are regular. ABD: Soft, non-tender and not distended. No peritoneal signs on palpation. Normal bowel sounds. Last bm 06/17/25 EXT: No cyanosis or clubbing. No edema. SKIN: Intact. No rashes. NEURO: Alert and oriented to name, place and person.No focal motor deficits. Normal speech. Vital Signs (last 8hr) Date Time Temp Pulse Resp B/P (MAP) Pulse Ox O2 Delivery O2 Flow Rate FiO2 06/21/25 12:00 97.9 53 18 142/86 97 Room Air 06/21/25 08:57 96 Room Air* 0 21 06/21/25 08:00 98.1 53 18 127/76 96 Room Air Laboratory: [ ] Laboratory: Test 06/21/25 10:47 06/21/25 05:03 06/20/25 04:29 Range/Units Whole Blood Glucose 138 H 70-110 MG/DL White Blood Count 6.1 4.8-10.8 K/uL Red Blood Count 4.50 4.50-6.20 MIL/uL Hemoglobin 13.8 L 14.0-18.0 g/dL Hematocrit 41.2 L 42-54 % Mean Corpuscular Volume 91.6 79-99 fL Mean Corpuscular Hemoglobin 30.7 27.0-33.0 pg Mean Corpuscular Hemoglobin Concent 33.5 32.0-36.0 g/dL Red Cell Distribution Width 12.8 11.0-15.5 % Platelet Count 177 130-400 K/uL Mean Platelet Volume 10.7 H 7.5-10.5 fL Immature Granulocyte % (Auto) 0.3 0-1 % Neutrophils (%) (Auto) 63.1 40.0-77.0 % Lymphocytes (%) (Auto) 22.9 21.0-51.0 % Monocytes (%) (Auto) 9.6 3.0-13.0 % Eosinophils (%) (Auto) 3.3 0.0-8.0 % Basophils (%) (Auto) 0.8 0.0-5.0 % Neutrophils # (Auto) 3.9 1.8-7.7 K/uL Lymphocytes # (Auto) 1.4 1.0-4.8 K/uL Monocytes # (Auto) 0.6 0.1-1.0 K/uL Eosinophils # (Auto) 0.20 0.00-0.70 K/uL Basophils # (Auto) 0.05 0.00-0.20 K/uL Absolute Immature Granulocyte (auto 0.02 0-1 K/uL Nucleated Red Blood Cells 0.0 0.0-0.19 % Sodium Level 140 136-145 mmol/L Potassium Level 4.5 3.5-5.1 mmol/L Chloride Level 105 101-111 mmol/L Carbon Dioxide Level 32 21-32 mmol/L Blood Urea Nitrogen 11 7-18 mg/dL Creatinine 0.7 0.5-1.3 mg/dL Glomerular Filtration Rate Calc 105 >90 mL/min Random Glucose 142 H 70-105 mg/dL Total Calcium 8.3 L 8.5-10.1 mg/dL Total Bilirubin 0.9 0.2-1.0 mg/dL Aspartate Amino Transf (AST/SGOT) 23 10-37 U/L Alanine Aminotransferase (ALT/SGPT) 25 12-78 U/L Alkaline Phosphatase 67 50-136 U/L Total Protein 6.3 6.0-8.3 g/dL Albumin 2.7 L 3.5-5.0 g/dL C-Reactive Protein, Quantitative 77.30 H 0.5-3.0 mg/L Lipase 14 L 16-77 U/L Current Medications Medications (Trade) Dose Ordered Sig/Kilo Route PRN Reason Start Time Stop Time Status Last Admin Dose Admin Acetaminophen (TYLenol 325MG TAB) 650 mg Q6H PRN PO MILD PAIN (1-3) 06/18/25 19:00 07/18/25 18:59 Albuterol (DUOneb) 1 udvial Q6H PRN IH SHORTNESS OF BREATH 06/18/25 19:00 07/18/25 18:59 Alprazolam (XANax 0.5MG) 0.5 mg ONCE PO 06/20/25 19:00 06/20/25 23:59 DC 06/20/25 18:38 0.5 MG Aspirin (Aspirin 81mg Ec Tab) 81 mg DAILY PO 06/20/25 09:00 07/20/25 08:59 Atorvastatin Calcium (LIPItor 20MG) 20 mg HS PO 06/19/25 21:00 07/19/25 20:59 06/20/25 20:24 20 MG Dextrose (D50w) 50 ml AD PRN IV HYPOGLYCEMIA PROTOCOL 06/18/25 20:00 07/18/25 19:59 Dextrose/Sodium Chloride 1,000 ml @ 80 mls/hr [id number] IV 06/19/25 12:00 07/19/25 11:59 06/21/25 08:57 150 MLS/HR Diphenhydramine HCl (BENAdryl INJ) 25 mg Q6H PRN IV ITCHING/ rash 06/18/25 19:30 07/18/25 19:29 Enoxaparin Sodium (Lovenox) 40 mg DAILY SQ 06/19/25 09:00 06/19/25 08:36 DC Enoxaparin Sodium (Lovenox) 40 mg HS SQ 06/19/25 21:00 07/19/25 08:59 06/20/25 20:24 40 MG Glucagon (Glucagon 1mg Kit) 1 mg AD PRN IM HYPOGLYCEMIA PROTOCOL 06/18/25 20:00 07/18/25 19:59 Hydralazine HCl (APRESOLine 20MG INJ) 10 mg Q6H PRN IV ADMINISTER FOR SBP > 170 06/18/25 19:00 07/18/25 18:59 Hydromorphone HCl (DiLAUDid 0.5MG INJ) 0.5 mg Q6H PRN IVP SEVERE PAIN (7-10) 06/18/25 20:30 06/23/25 20:29 06/19/25 01:02 0.5 MG Insulin Human Regular (humuLIN R 100 UNIT/ML 3ML) INSULIN SLIDING SCAL... ACHS SQ 06/18/25 21:00 06/20/25 07:31 DC Insulin Human Regular (humuLIN R 100 UNIT/ML 3ML) INSULIN SLIDING SCAL... ACHS SQ 06/20/25 07:30 07/20/25 07:29 Ketorolac Tromethamine (toRADol) 15 mg Q12H PRN IV MODERATE PAIN (4-6) 06/18/25 20:30 06/21/25 20:30 Lactated Ringer's 1,000 ml @ 150 mls/hr Q6H40M IV 06/18/25 19:00 06/19/25 11:44 DC 06/19/25 01:02 150 MLS/HR Lisinopril (Prinivil 10mg) 10 mg DAILY PO 06/20/25 09:00 07/20/25 08:59 Magnesium Sulfate 50 ml @ 0 mls/hr PROTOCOL IV 06/18/25 19:00 07/18/25 18:59 Meropenem (Merrem 1gm) 1 gm Q8H IVPB 06/18/25 19:30 06/28/25 19:29 06/21/25 11:27 1 GM Ondansetron HCl (zoFRAN 4MG INJ) 4 mg Q6H PRN IVP NAUSEA/VOMITING 06/18/25 19:00 07/18/25 18:59 06/19/25 01:02 4 MG Pantoprazole Sodium (PROTonix 40MG INJ) 40 mg DAILY IVP 06/19/25 09:00 07/19/25 08:59 06/21/25 08:57 40 MG Pharmacy Profile Note (Pharmacy Communication) 1 each ONCE MISC 06/18/25 19:30 06/18/25 19:11 DC Potassium Chloride 100 ml @ 100 mls/hr AD PRN IV POTASSIUM PROTOCOL 06/18/25 19:00 07/18/25 18:59 Potassium Chloride (K-Dur/Klor-Con 20meq) 20 meq AD PRN PO POTASSIUM PROTOCOL 06/18/25 19:00 07/18/25 18:59 Potassium Chloride (KCl 10% Elixir 20meq/15ml) 20 meq AD PRN PO POTASSIUM PROTOCOL 06/18/25 19:00 07/18/25 18:59 Thiamine HCl (Vitamin B-1) 100 mg Q24H IVP 06/18/25 19:00 07/18/25 18:59 06/20/25 19:38 100 MG Diagnostics / Radiology: [COPY/PASTE HERE IF NO REPORTS PLEASE DELETE SECTION] Assessment: [Abdominal pain Acute Pancreatitis Type 2 Diabetes Hypertension ] Possible causes to consider include alcohol, idiopathic, hypertriglyceridemia, medications, hypercalcemia, ERCP, celiac disease, autoimmune pancreatitis, vasculitis Plan: Case discussed Dr. Love 1.Clear fluids and advance as tolerated. 2. Aggressive IV fluids lactated Ringer's 200-400 mL/hour for 12-24 hours to maintain adequate pancreatic perfusion and prevent ischemic necrosis 3. Supportive care with opioid analgesics (avoid NSAIDs) and antiemetics 4. Close patient monitoring of vital signs including O2 saturations, urine output, and electrolyte replacement 5. Possible need for ERCP if MRCP is positive. 6. Patient may be discharged from GI standpoint if MRCP negative for choledocholithiasis. Thank you for allowing us to participate in the care of this patient! ] SIENNA MÉNDEZ Jun 21, 2025 15:20
--- NOTE | 2025-06-21 16:07 | PN ---
[facility] PROGRESS NOTE Date of Service: Jun 21, 2025 Time of Service: 16:04 HISTORY OF PRESENT ILLNESS: Date of service: 06/18/2025, patient [place] [facility] [place] This is a patient who was transferred from [facility] for further treatment and management of acute pancreatitis. This is a 59-year-old male with underlying history of obesity, type 2 diabetes mellitus, hypertension, hyperlipidemia, patient with previous history of pancreatitis in 2020 complicated by necrotizing pancreatitis, history of cholecystectomy [place] [address] Almanza who presented as a transfer from [facility] room for further evaluation of pancreatitis. Patient st ates that he was having some [id number] intensity epigastric pain associated with nausea that started yesterday with mild pain radiating to the back. Pain was about 3-4/10 in intensity. Symptoms were nonresolving prompting him to come to the ER today for further evaluation. Reports having some subjective chills as well. He has been doing relatively well since his hospitalization in 2020 and denies any recent hospitalization. Reports that he was hospitalized in [facility] in 2020 for necrotizing pancreatitis with pseudocyst. Patient had a prolonged hospitalization for management of pancreatitis. He also has a history of cholecystectomy due to cholecystitis in July,. Patient denies any history of hypertriglyceridemia, denies any significant alcohol consumption and denies any familial history of pancreatitis. He has been maintained on Jardiance for several years for management of type 2 diabetes mellitus. He is currently maintained on Tresiba 80 units daily and prandial insulin 30 units 3 times a day with meals for management of type 2 diabetes mellitus. On Presentation to the hospital, patient was noted to be afebrile and hemodynamically stable. Patient underwent a CT abdomen pelvis without IV contrast which showed findings of extensive peripancreatic edema with stranding with peripancreatic prominent lymph nodes in fluid tracking to the anterior left pararenal space. Patient was also found to have focus of gas and distal pancreas with necrotizing pancreatitis/pancreatic abscess which could not be ruled out. SUBJECTIVE: 06/19/25: Patient was seen and evaluated in room 311, patient was lying on the bed and denies abdominal pain but rather reports it as abdominal discomfort. patient denies any fever, chills. Patient denies any changes in bladder movement or burning sensation during urination. Patient mentioned that he last passed stool from Thursday. Patient is currently on NPO. Pertinent labs- WBC-10.3, Lipase -16, amylase-43, Troponin-51, CRP-96.5, TG-51, cholesterol-151 06/20/25: Patient was seen and evaluated in room 311, patient was lying on the bed and denies abdominal pain. Patient reports feeling better and doesn't have any active complaints. As per general surgery, gastroenterology he was scheduled for MRCP. But patient denied since he is claustrophobic. waiting for further recommendations from surgery and gastroenterology. Patient mentioned that he last passed stool from Thursday. Patient is currently on NPO. Pertinent labs- WBC- 7.7, Lipase -14, amylase-43, Troponin-51, CRP-77.30, TG-51, cholesterol-151 06/21/25: Patient was seen and evaluated in room 311. Patient reports feeling a lot better today. patient doesn't have any active complaints. Patient reports that he was able to get the MRCP done yesterday evening after being given Xanax. pedning reports. waiting for further recommendations from surgery and gastroenterology. REVIEW OF SYSTEMS CONSTITUTIONAL: Reports having chills NEUROLOGICAL: Denies headache, amaurosis fugax, motor weakness, sensory def icit, vertigo/spinning sensation, gait abnormalities, or tremors. ENT: No hearing loss, otalgia, otorrhea, rhinitis, rhinorrhea, hoarseness, or sore throat. CARDIOVASCULAR: Denies any exertional angina, dyspnea on exertion, orthopnea, paroxysmal nocturnal dyspnea, palpitations, life-threatening arrhythmias, claudication. PULMONARY: Denies any shortness of breath, cough, phlegm/sputum, hemoptysis, pleuritic chest pain. SLEEP: Denies morning headaches, daytime somnolence or napping. Denies difficulty falling asleep, staying asleep, waking from sleep. Denies knowledge of snoring. GASTROINTESTINAL: Nausea, vomiting , epigastric abdominal pain GENITOURINARY: Denies frequency, urgency, nocturia, hematuria or incontinence (Storage/Irritative symptoms.) Low urinary stream, straining to void, urinary intermittency or hesitancy, splitting of the voiding stream, terminal dribbling. ENDOCRINOLOGIC: Denies polyuria, polydipsia, polyphagia or heat/cold intolerances. HEMATOLOGIC: Denies thrombophilia/previous clots, or coagulopathy/bleeding disorders. ONCOLOGIC: Denies personal history of malignancy. DERMATOLOGIC: Denies rashes or pruritus. PSYCHIATRIC: Denies any suicidal or homicidal ideation. Denies hallucinations. PHYSICAL EXAM GENERAL APPEARANCE: The patient is awake, alert, and oriented, in no acute cardiopulmonary distress. NEUROLOGICAL: Cranial nerves II-XII grossly intact. Motor is 5/5 in bilateral upper and lower extremities proximal to distal. No sensory deficits. HEENT: Face is symmetric. Pupils are equal and reactive. Extraocular movements are intact. NECK: Supple. No JVD. No thyromegaly. No submental, submandibular, pre- /postauricular, occipital or supraclavicular lymphadenopathy. CHEST: Normal chest expansion. No Telemetry. LUNGS: Absence of any rales, rhonchi or any wheezing. CARDIOVASCULAR: Regular. S1 and S2 normal. No appreciable rubs, murmurs or gallops. ABDOMEN: Soft, mild tenderness to palpation of the epigastric area with no rebound or guarding : Deferred. No Sandoval. EXTREMITIES: Non-edematous and not cyanotic. No clubbing. Good capillary refill. SKIN: No skin breakdown. Vital Signs (last 8hr) Date Time Temp Pulse Resp B/P (MAP) Pulse Ox O2 Delivery O2 Flow Rate FiO2 06/21/25 12:00 97.9 53 18 142/86 97 Room Air 06/21/25 08:57 96 Room Air* 0 21 LABS: Laboratory: Test 06/21/25 15:55 06/21/25 05:03 06/20/25 04:29 Range/Units Whole Blood Glucose 96 70-110 MG/DL White Blood Count 6.1 4.8-10.8 K/uL Red Blood Count 4.50 4.50-6.20 MIL/uL Hemoglobin 13.8 L 14.0-18.0 g/dL Hematocrit 41.2 L 42-54 % Mean Corpuscular Volume 91.6 79-99 fL Mean Corpuscular Hemoglobin 30.7 27.0-33.0 pg Mean Corpuscular Hemoglobin Concent 33.5 32.0-36.0 g/dL Red Cell Distribution Width 12.8 11.0-15.5 % Platelet Count 177 130-400 K/uL Mean Platelet Volume 10.7 H 7.5-10.5 fL Immature Granulocyte % (Auto) 0.3 0-1 % Neutrophils (%) (Auto) 63.1 40.0-77.0 % Lymphocytes (%) (Auto) 22.9 21.0-51.0 % Monocytes (%) (Auto) 9.6 3.0-13.0 % Eosinophils (%) (Auto) 3.3 0.0-8.0 % Basophils (%) (Auto) 0.8 0.0-5.0 % Neutrophils # (Auto) 3.9 1.8-7.7 K/uL Lymphocytes # (Auto) 1.4 1.0-4.8 K/uL Monocytes # (Auto) 0.6 0.1-1.0 K/uL Eosinophils # (Auto) 0.20 0.00-0.70 K/uL Basophils # (Auto) 0.05 0.00-0.20 K/uL Absolute Immature Granulocyte (auto 0.02 0-1 K/uL Nucleated Red Blood Cells 0.0 0.0-0.19 % Sodium Level 140 136-145 mmol/L Potassium Level 4.5 3.5-5.1 mmol/L Chloride Level 105 101-111 mmol/L Carbon Dioxide Level 32 21-32 mmol/L Blood Urea Nitrogen 11 7-18 mg/dL Creatinine 0.7 0.5-1.3 mg/dL Glomerular Filtration Rate Calc 105 >90 mL/min Random Glucose 142 H 70-105 mg/dL Total Calcium 8.3 L 8.5-10.1 mg/dL Total Bilirubin 0.9 0.2-1.0 mg/dL Aspartate Amino Transf (AST/SGOT) 23 10-37 U/L Alanine Aminotransferase (ALT/SGPT) 25 12-78 U/L Alkaline Phosphatase 67 50-136 U/L Total Protein 6.3 6.0-8.3 g/dL Albumin 2.7 L 3.5-5.0 g/dL C-Reactive Protein, Quantitative 77.30 H 0.5-3.0 mg/L Lipase 14 L 16-77 U/L Current Medications Medications (Trade) Dose Ordered Sig/Kilo Route PRN Reason Start Time Stop Time Status Last Admin Dose Admin Acetaminophen (TYLenol 325MG TAB) 650 mg Q6H PRN PO MILD PAIN (1-3) 06/18/25 19:00 07/18/25 18:59 Albuterol (DUOneb) 1 udvial Q6H PRN IH SHORTNESS OF BREATH 06/18/25 19:00 07/18/25 18:59 Alprazolam (XANax 0.5MG) 0.5 mg ONCE PO 06/20/25 19:00 06/20/25 23:59 DC 06/20/25 18:38 0.5 MG Aspirin (Aspirin 81mg Ec Tab) 81 mg DAILY PO 06/20/25 09:00 07/20/25 08:59 Atorvastatin Calcium (LIPItor 20MG) 20 mg HS PO 06/19/25 21:00 07/19/25 20:59 06/20/25 20:24 20 MG Dextrose (D50w) 50 ml AD PRN IV HYPOGLYCEMIA PROTOCOL 06/18/25 20:00 07/18/25 19:59 Dextrose/Sodium Chloride 1,000 ml @ 80 mls/hr [id number] IV 06/19/25 12:00 07/19/25 11:59 06/21/25 08:57 150 MLS/HR Diphenhydramine HCl (BENAdryl INJ) 25 mg Q6H PRN IV ITCHING/ rash 06/18/25 19:30 07/18/25 19:29 Enoxaparin Sodium (Lovenox) 40 mg DAILY SQ 06/19/25 09:00 06/19/25 08:36 DC Enoxaparin Sodium (Lovenox) 40 mg HS SQ 06/19/25 21:00 07/19/25 08:59 06/20/25 20:24 40 MG Glucagon (Glucagon 1mg Kit) 1 mg AD PRN IM HYPOGLYCEMIA PROTOCOL 06/18/25 20:00 07/18/25 19:59 Hydralazine HCl (APRESOLine 20MG INJ) 10 mg Q6H PRN IV ADMINISTER FOR SBP > 170 06/18/25 19:00 07/18/25 18:59 Hydromorphone HCl (DiLAUDid 0.5MG INJ) 0.5 mg Q6H PRN IVP SEVERE PAIN (7-10) 06/18/25 20:30 06/23/25 20:29 06/19/25 01:02 0.5 MG Insulin Human Regular (humuLIN R 100 UNIT/ML 3ML) INSULIN SLIDING SCAL... ACHS SQ 06/18/25 21:00 06/20/25 07:31 DC Insulin Human Regular (humuLIN R 100 UNIT/ML 3ML) INSULIN SLIDING SCAL... ACHS SQ 06/20/25 07:30 07/20/25 07:29 Ketorolac Tromethamine (toRADol) 15 mg Q12H PRN IV MODERATE PAIN (4-6) 06/18/25 20:30 06/21/25 20:30 Lactated Ringer's 1,000 ml @ 150 mls/hr Q6H40M IV 06/18/25 19:00 06/19/25 11:44 DC 06/19/25 01:02 150 MLS/HR Lisinopril (Prinivil 10mg) 10 mg DAILY PO 06/20/25 09:00 07/20/25 08:59 Magnesium Sulfate 50 ml @ 0 mls/hr PROTOCOL IV 06/18/25 19:00 07/18/25 18:59 Meropenem (Merrem 1gm) 1 gm Q8H IVPB 06/18/25 19:30 06/28/25 19:29 06/21/25 11:27 1 GM Ondansetron HCl (zoFRAN 4MG INJ) 4 mg Q6H PRN IVP NAUSEA/VOMITING 06/18/25 19:00 07/18/25 18:59 06/19/25 01:02 4 MG Pantoprazole Sodium (PROTonix 40MG INJ) 40 mg DAILY IVP 06/19/25 09:00 07/19/25 08:59 06/21/25 08:57 40 MG Pharmacy Profile Note (Pharmacy Communication) 1 each ONCE MISC 06/18/25 19:30 06/18/25 19:11 DC Potassium Chloride 100 ml @ 100 mls/hr AD PRN IV POTASSIUM PROTOCOL 06/18/25 19:00 07/18/25 18:59 Potassium Chloride (K-Dur/Klor-Con 20meq) 20 meq AD PRN PO POTASSIUM PROTOCOL 06/18/25 19:00 07/18/25 18:59 Potassium Chloride (KCl 10% Elixir 20meq/15ml) 20 meq AD PRN PO POTASSIUM PROTOCOL 06/18/25 19:00 07/18/25 18:59 Thiamine HCl (Vitamin B-1) 100 mg Q24H IVP 06/18/25 19:00 07/18/25 18:59 06/20/25 19:38 100 MG DIAGNOSTICS / RADIOLOGY: [facility] [address] [place] [address] IMAGING REPORT Addendum PATIENT: RAAD ALICIA MR#: [id number] : 1965 SEX: M AGE: 59 LOCATION: [facility] ORDER [id number] STATUS: ADM IN REPORT#: [id number] SERVICE 0600 REASON: acute pancreatitis, r/o necrotizing pancreatitis/abscess, pancreas protocol ORDERING PHYSICIAN: PÉREZ GUZMAN MD PROCEDURE: ABD PEL W - CT ABDOMEN/PELVIS W/CONTRAST ADDENDUM REPORT ADDENDUM: Results were shared by telephone at 13:59 pm on 06-19-25 and acknowledged by Pérez Bond /[facility] Abdomen and Pelvis CT with contrast Comparison: None Indication:acute pancreatitis, r/o necrotizing pancreatitis/abscess, pancreas protocol Technique: 5 mm thick axial images were obtained through the abdomen and pelvis before and after the administration of 150ml of intravenous contrast . 1.25 mm thick axial images as well as coronal and sagittal reformatted images were also submitted for interpretation. Findings: The visualized portions of the lungs are normal in appearance. The visualized portion of the heart is normal in size without pericardial effusion. The abdominal aorta demonstrates no evidence of focal aneurysmal dilitation or dissection. Post cholecystectomy status of gall bladder . Intrapancreatic - diffuse enlargement with edema. Peripancreatic / extrapancreatic - irregular pancreatic outline, obliterated peripancreatic fat, retroperitoneal edema, fluid in the lesser sac, fluid in the left anterior pararenal space Thickening of inflamed Gerota's fascia, which becomes visible with pancreatic ascites, pleural effusion (seen on basal cuts of the pleural cavity). The liver is normal in size without focal hepatic lesions. No intrahepatic ductal dilatation is seen. The hepatic and portal veins are patent. The common bile duct, spleen, adrenals and kidneys are normal in appearance. No hydronephrosis or radio-opaque calculi are visualized. The urinary bladder is within normal limits. Mild prostatomegaly noted . The colon is normal in appearance and without wall thickening or inflammatory change. No intraperitoneal free air or fluid is visualized. No pathologic lymphadenopathy is seen. There are no osseous or soft tissue abnormalities. Impression: GRADE E ACUTE SEVERE PANCREATITIS WITH A CTSI SCORE OF 8/10 [30- 50 PERCENT NECROSIS} /[place] DICTATED BY: STEF BATEMAN MD DATE: 06/19/25 1404 ELECTRONICALLY SIGNED BY: DATE: Abdomen and Pelvis CT with contrast Comparison: None Indication:acute pancreatitis, r/o necrotizing pancreatitis/abscess, pancreas protocol Technique: 5 mm thick axial images were obtained through the abdomen and pelvis before and after the administration of 150ml of intravenous contrast . 1.25 mm thick axial images as well as coronal and sagittal reformatted images were also submitted for interpretation. Findings: The visualized portions of the lungs are normal in appearance. The visualized portion of the heart is normal in size without pericardial effusion. The abdominal aorta demonstrates no evidence of focal aneurysmal dilitation or dissection. Post cholecystectomy status of gall bladder . Intrapancreatic - diffuse enlargement with edema. Peripancreatic / extrapancreatic - irregular pancreatic outline, obliterated peripancreatic fat, retroperitoneal edema, fluid in the lesser sac, fluid in the left anterior pararenal space Thickening of inflamed Gerota's fascia, which becomes visible with pancreatic ascites, pleural effusion (seen on basal cuts of the pleural cavity). The liver is normal in size without focal hepatic lesions. No intrahepatic ductal dilatation is seen. The hepatic and portal veins are patent. The common bile duct, spleen, adrenals and kidneys are normal in appearance. No hydronephrosis or radio-opaque calculi are visualized. The urinary bladder is within normal limits. Mild prostatomegaly noted . The colon is normal in appearance and without wall thickening or inflammatory change. No intraperitoneal free air or fluid is visualized. No pathologic lymphadenopathy is seen. There are no osseous or soft tissue abnormalities. Impression: GRADE E ACUTE SEVERE PANCREATITIS WITH A CTSI SCORE OF 8/10 [30- 50 PERCENT NECROSIS} /[place] DICTATED BY: STEF BATEMAN MD DATE: 06/19/25 1344 ELECTRONICALLY SIGNED BY: STEF BATEMAN MD DATE: 06/19/25 1344 [facility] [address] [place] [address] IMAGING REPORT Signed PATIENT: RAAD ALICIA MR#: [id number] : 1965 SEX: M AGE: 59 LOCATION: [facility] ORDER 1019 STATUS: ADM IN REPORT#: [id number] SERVICE 1016 REASON: RUQ pain, acute pancreatitis ORDERING PHYSICIAN: KARIN GUZMAN MD PROCEDURE: ABDRUQLTD - US ABDOMINAL RUQ\LTD EXAM: Ultrasound Abdomen, Right Upper Quadrant CLINICAL HISTORY: Right upper quadrant pain, history of acute pancreatitis. TECHNIQUE: Real-time right upper quadrant sonography performed with grayscale and color Doppler imaging. COMPARISON: CT Abdomen and Pelvis with Contrast ??? 06/19/25, 06:19 EDT FINDINGS: LIVER: Liver measures 20.7 cm in craniocaudal dimension. Parenchymal echogenicity is mildly increased, consistent with fatty infiltration. No focal hepatic lesion or intrahepatic biliary dilatation seen. GALLBLADDER: Status post cholecystectomy (gallbladder surgically removed). COMMON BILE DUCT: Common bile duct measures 5 mm in diameter, within normal limits for post-cholecystectomy status. No intraductal calculus or obstruction identified. PANCREAS: Visualized portions appear obscured by overlying bowel gas, limiting detailed assessment. No definite peripancreatic fluid or pseudocyst seen in the visualized region. RIGHT KIDNEY: Right kidney measures 13.3 ??? 6.1 ??? 6.3 cm. Normal renal cortical thickness and echogenicity. No calculus, hydronephrosis, or focal lesion identified. COMMENTS: Portions of the pancreas are obscured by bowel gas artifact, limiting full evaluation. IMPRESSION: 1. Hepatomegaly (liver measures 20.7 cm in craniocaudal dimension) with mild fatty infiltration. 2. Status post cholecystectomy with common bile duct measuring 5 mm, within normal limits for post-cholecystectomy status. 3. Limited visualization of pancreas due to bowel gas artifact; no definite peripancreatic fluid or pseudocyst seen in the visualized region. 4. Normal right kidney measuring 13.3 ??? 6.1 ??? 6.3 cm, with no calculus, hydronephrosis, or focal lesion identified. /[place] DICTATED BY: TITA HUTTON MD DATE: 06/19/252254 ELECTRONICALLY SIGNED BY: TITA HUTTON MD DATE: 06/19/252254 ASSESSMENT: Acute pancreatitis, POA Rule out necrotizing pancreatitis/pancreatic abscess, POA Leukocytosis, POA History of complicated pancreatitis with necrotizing pancreatitis with pseudocyst in 2020 Status post cholecystectomy, POA History of Jardiance use as outpatient, POA Bilateral adrenal gland indeterminate nodules, POA ( right adrenal gland measuring 2 cm and left adrenal gland measuring 0.9 cm) History of hypertension, POA Hyperlipidemia, POA Type 2 diabetes mellitus, POA History of abdominal hernia repair with mesh, POA Diverticulosis, POA PLAN: Acute pancreatitis, POA * WBC trends -14.2>10.3>7.7>6.1, Lipase -16>14, amylase-43, Troponin-51, CRP- 96.5, TG-51, cholesterol-151, Total bilirubin-1.2 * CT abdomen was ordered results show - Grade E Acute Severe Pancreatitis With CTSI Score Of 8/10 [30- 50 PERCENT NECROSIS] with Fluid in the left anterior pararenal space. * Abdominal Ultrasound was done, results show Hepatomegaly (20.7 cm) with mild fatty infiltration, common bile duct measuring 5mm, Limited visualization of pancreas due to bowel gas artifact, Normal right kidney measuring with no calculus, hydronephrosis. * MRCP was done on 06/20/25, pending report. * General surgery was consulted, will follow their recommendations * GI was consulted, will follow their recommendations * Infectious diseases was consulted, will follow their recommendations. * Endocrinology was consulted, will follow their recommendations. * Currently on Meropenem(day 4) * Jardiance was stopped, suspecting cause of pancreatitis. * IV fluids with Ringer lactate (200-400ml/hr) for 12-24 hours as per GI recommendations * For pain management he is on Dilaudid 0.5mg PRN, Toradol 15mg PRN, Tylenol 650mg PRN * Currently on NPO. * H/O necrotizing pancreatitis, H/O cholecystectomy will monitor closely. * Will monitor with daily labs. Supportive measures: * GI prophylaxis Protonix * DVT prophylaxis with Lovenox ATTESTATION BY PHYSICIAN I have seen and examined the patient. I reviewed the documentation, medical decision making, and treatment plan as noted by the resident physician above. I agree with the findings and plan of care. Raad Reed MD, SHAJI MD Jun 21, 2025 16:07
--- NOTE | 2025-06-21 18:48 | HMCIMG ---
EXAM: MRCP/MR Abdomen Without IV contrast. CLINICAL HISTORY: Rule out choledocholithiasis TECHNIQUE: Multiplanar, multisequence MR imaging of the abdomen including MRCP sequences was performed without intravenous contrast administration. CONTRAST: None. COMPARISON: CT ABDOMEN/PELVIS W/CONTRAST Jun 19, 2025 ABDOMINAL RUQ LTD Jun 19, 2025 FINDINGS: Study limited by patient motion. LOWER THORAX: Bilateral minimal pleural effusion. LIVER: Liver is mildly enlarged, measuring approximately 19 cm in craniocaudal dimension. No focal hepatic lesion. GALLBLADDER AND BILE DUCTS: Status post cholecystectomy. No intrahepatic or extrahepatic biliary ductal dilatation. The common bile duct measures 7.4 mm, within upper limits of normal for post-cholecystectomy status. No intraluminal calculus or filling defect identified. PANCREAS: The pancreas is diffusely enlarged with heterogeneous T2 signal intensity and irregular margins, predominantly involving the head and body. Minimal peripancreatic fluid and inflammatory stranding are present. No definite non-enhancing walled-off collections are seen. The main pancreatic duct is mildly prominent, measuring approximately 5 mm, with no obstructing stone or mass. SPLEEN: Mildly enlarged 13 cm. ADRENALS: Unremarkable. KIDNEYS: The kidneys appear within normal limits. No hydronephrosis or mass evident. Minimal perinephric fluid rim seen. STOMACH AND BOWEL: Limited evaluation of the stomach and bowel demonstrates no acute process. LYMPH NODES: No lymphadenopathy is evident. VASCULATURE: No abdominal aortic aneurysm. IMPRESSION: Study limited by patient motion. The common bile duct is mildly prominent (7.4 mm), likely post-cholecystectomy caliber, with no features of choledocholithiasis or biliary obstruction. Persistent diffuse pancreatic enlargement, mild peripancreatic fluid, and no definite organized collection consistent with interstitial edematous pancreatitis. Recommend follow-up contrast-enhanced CT or MRI in 4???6 weeks is to document complete resolution and to exclude evolving pancreatic necrosis or pseudocyst formation if clinically appropriate. Associated mild hepatomegaly, mild splenomegaly, and minimal bilateral pleural effusions. /[place]
--- NOTE | 2025-06-21 20:58 | PN ---
Endocrinology progress note DOS:06/21/25 subjective: Patient underwent a CT abdomen pelvis without IV contrast which showed findings of extensive peripancreatic edema with stranding with peripancreatic prominent lymph nodes in fluid tracking to the anterior left pararenal space. Patient was also found to have focus of gas and distal pancreas with necrotizing pancreatitis/pancreatic abscess which could not be ruled out. 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, history of cholelithiasis and cholecystitis in 2019 PAST SURGICAL HISTORY: History of cholecystectomy in 2019, abdominal hernia repair with mesh couple of years ago PAST SOCIAL HISTORY: Denies any active smoking, alcohol consumption, denies any illicit drug use, patient is ambulatory at home and independent with ADLs and IADLs FAMILY HISTORY: Denies any family history of GI disorders of pancreatitis Allergies: Patient reports having to be allergic reaction to penicillin in childhood possibly anaphylaxis Home medications: Patient reports being on Tresiba 80 units in the morning, lisinopril 10 mg daily, Crestor, metformin, patient reports he mealtime insulin of Humalog 30 units Coded Allergies: Penicillins (Verified Allergy, Unknown, 07/28/20) DIAGNOSTICS / RADIOLOGY: Patient underwent CT abdomen pelvis without IV contrast in [facility] which showed findings of extensive peripancreatic edema and stranding with peripancreatic prominent lymph nodes and fluid tracking to the anterior left pararenal space. Focus of gas is seen in the distal pancreatic body. Impression: Acute pancreatitis. Focus of gas distal pancreas is indeterminate but suspicious. If not contraindicated, consider contrast syndrome and CT abdomen and pelvis to exclude pancreatic necrosis and abscess formation. Indeterminate adrenal gland nodules, patient noted to have indeterminate right adrenal 20 mm nodule in left adrenal 9 mm nodule. Colonic diverticulosis. ASSESSMENT: Acute pancreatitis, POA unclear etiology. s/p cholecystectomy, triglyceride is normal. denies alcohol use. off ozempic for 3 years. uncontrolled DM-2, POA Home diabetic regimen: tresiba 80 units daily, novolog 30 units qac before meals, jardiance 2 5 mg daily, actos 30 mg daily and metformin 1000 mg bid, Hba1c 7.1% glucose runs less than 180 mg/dl. I saw this patient recently in clinic in 03/2025 glucose are controlled. Rule out necrotizing pancreatitis/pancreatic abscess, POA MRCP was done. Leukocytosis, POA History of complicated pancreatitis with necrotizing pancreatitis with pseudocyst in 2020 Status post cholecystectomy, POA History of Jardiance use as outpatient, POA Bilateral adrenal gland indeterminate nodules, POA ( right adrenal gland measuring 2 cm and left adrenal gland measuring 0.9 cm) History of hypertension, POA Hyperlipidemia, POA Type 2 diabetes mellitus, POA History of abdominal hernia repair with mesh, POA Diverticulosis, POA PLAN: start Lantus 15 units daily tomorrow and adjust for fasting glucose. start Regular insulin before meals if daytime hyperglycemia. Continue medium dose sliding scale insulin. Monitor glucose q x 6 hourly. Continue carb consistent diet. Keep glucose less than 180 mg/dl. patient is started on clear diet.. Vitals/Labs Vital Signs Date Time Temp Pulse Resp B/P (MAP) Pulse Ox O2 Delivery O2 Flow Rate FiO2 06/21/25 20:28 98.1 51 18 145/84 97 Room Air 06/21/25 08:57 0 21 Laboratory Tests 06/21/25 05:03 Medications Current Medications Thiamine HCl 100 mg Q24H IVP Last administered on 06/21/25at 18:34; Start 06/18/25 at 19:00; Stop 07/18/25 at 18:59 Sodium Chloride 1,000 ml @ 0 mls/hr ONCE ONCE IV Last administered on 06/18/25at 19:07; Start 06/18/25 at 19:00; Stop 06/18/25 at 19:01; Status DC Lactated Ringer's 1,000 ml @ 150 mls/hr Q6H40M IV Last administered on 06/19/25at 01:02; Start 06/18/25 at 19:00; Stop 06/19/25 at 11:44; Status DC Pantoprazole Sodium 40 mg DAILY IVP Last administered on 06/21/25at 08:57; Start 06/19/25 at 09:00; Stop 07/19/25 at 08:59 Acetaminophen 650 mg Q6H PRN PO; Start 06/18/25 at 19:00; Stop 07/18/25 at 18:59 Ondansetron HCl 4 mg Q6H PRN IVP Last administered on 06/19/25at 01:02; Start 06/18/25 at 19:00; Stop 07/18/25 at 18:59 Albuterol 1 udvial Q6H PRN IH; Start 06/18/25 at 19:00; Stop 07/18/25 at 18:59 Insulin Human Regular INSULIN SLIDING SCAL... ACHS SQ; Start 06/18/25 at 21:00; Stop 06/20/25 at 07:31; Status DC Potassium Chloride 100 ml @ 100 mls/hr AD PRN IV; Start 06/18/25 at 19:00; Stop 07/18/25 at 18:59 Potassium Chloride 20 meq AD PRN PO; Start 06/18/25 at 19:00; Stop 07/18/25 at 18:59 Potassium Chloride 20 meq AD PRN PO; Start 06/18/25 at 19:00; Stop 07/18/25 at 18:59 Magnesium Sulfate 50 ml @ 0 mls/hr PROTOCOL IV; Start 06/18/25 at 19:00; Stop 07/18/25 at 18:59 Hydralazine HCl 10 mg Q6H PRN IV; Start 06/18/25 at 19:00; Stop 07/18/25 at 18:59 Pharmacy Profile Note 1 each ONCE MISC; Start 06/18/25 at 19:30; Stop 06/18/25 at 19:11; Status DC Meropenem 1 gm Q8H IVPB Last administered on 06/21/25at 18:34; Start 06/18/25 at 19:30; Stop 06/28/25 at 19:29 Diphenhydramine HCl 25 mg Q6H PRN IV; Start 06/18/25 at 19:30; Stop 07/18/25 at 19:29 Dextrose 50 ml AD PRN IV; Start 06/18/25 at 20:00; Stop 07/18/25 at 19:59 Glucagon 1 mg AD PRN IM; Start 06/18/25 at 20:00; Stop 07/18/25 at 19:59 Hydromorphone HCl 0.5 mg Q6H PRN IVP Last administered on 06/19/25at 01:02; Start 06/18/25 at 20:30; Stop 06/23/25 at 20:29 Ketorolac Tromethamine 15 mg Q12H PRN IV; Start 06/18/25 at 20:30; Stop 06/21/25 at 20:30; Status DC Enoxaparin Sodium 40 mg DAILY SQ; Start 06/19/25 at 09:00; Stop 06/19/25 at 08:36; Status DC Iohexol 35,000 mg STK-MED ONCE IV; Start 06/19/25 at 06:17; Stop 06/19/25 at 06:17; Status DC Enoxaparin Sodium 40 mg HS SQ Last administered on 06/20/25at 20:24; Start 06/19/25 at 21:00; Stop 07/19/25 at 08:59 Aspirin 81 mg DAILY PO; Start 06/20/25 at 09:00; Stop 07/20/25 at 08:59 Lisinopril 10 mg DAILY PO; Start 06/20/25 at 09:00; Stop 07/20/25 at 08:59 Atorvastatin Calcium 20 mg HS PO Last administered on 06/20/25at 20:24; Start 06/19/25 at 21:00; Stop 07/19/25 at 20:59 Dextrose/Sodium Chloride 1,000 ml @ 80 mls/hr [id number] IV Last administered on 06/21/25at 08:57; Start 06/19/25 at 12:00; Stop 07/19/25 at 11:59 Insulin Human Regular INSULIN SLIDING SCAL... ACHS SQ; Start 06/20/25 at 07:30; Stop 07/20/25 at 07:29 Alprazolam 0.5 mg ONCE ONCE PO; Start 06/20/25 at 14:30; Stop 06/20/25 at 14:31; Status DC Alprazolam 0.5 mg ONCE PO Last administered on 06/20/25at 18:38; Start 06/20/25 at 19:00; Stop 06/20/25 at 23:59; Status DC JESSIE JALLOH MD Jun 21, 2025 20:58
--- NOTE | 2025-06-21 22:42 | PN ---
INFECTIOUS DISEASE PROGRESS NOTE Date of Service: Jun 21, 2025 SUBJECTIVE: This is a 59-year-old male patient who was seen and examined at bedside in room 311. Patient is awake, alert and oriented x3. Patient is sitting up on the bedside chair. Denying pain at this time. Patient underwent an MRCP and pending interpretation. Patient is afebrile, temperature is 97.9. Currently continues on Meropenem 1 g IV every 8 hours. We will continue to follow patient closely. PHYSICAL EXAM EYES: Anicteric. Pupils equal and reactive. HENT: No oral thrush seen, moist Oral mucosa. NECK: Supple, no JVD or thyromegaly. LUNGS: Good air entry. No rales, no rhonchi. CARDIOVASCULAR: S1, S2 regular. No murmur heard. ABDOMEN: Soft, non tender, bowel sounds present, no organomegaly. CENTRAL NERVOUS SYSTEM: Awake, alert, oriented x 3. SKIN: No rashes, no swelling. LYMPHATICS: No peripheral lymphadenopathy MUSCULOSKELETAL: No joint swelling, erythema or tenderness. EXTREMITIES: No cyanosis or clubbing. BACK: No deformity, no pressure ulcer. GENITOURINARY: No dysuria or hematuria. Vital Sign (Last 12 Hours) 06/21/25 06/21/25 06/21/25 12:00 16:00 20:28 Temp 97.9 98.2 98.1 Pulse 53 52 51 Resp 18 18 18 B/P (MAP) 142/86 143/80 145/84 Pulse Ox 97 97 97 O2 Delivery Room Air Room Air Room Air Intake & Output (last 24hrs) 06/20/25 06/20/25 06/21/25 15:00 23:00 07:00 Intake Total 218.0 ml 206.0 ml 100.0 ml Output Total 500 ml Balance 218.0 ml 206.0 ml -400.0 ml LABS: Laboratory: Test 06/21/25 19:49 06/21/25 05:03 06/20/25 04:29 Range/Units Whole Blood Glucose 127 H 70-110 MG/DL White Blood Count 6.1 4.8-10.8 K/uL Red Blood Count 4.50 4.50-6.20 MIL/uL Hemoglobin 13.8 L 14.0-18.0 g/dL Hematocrit 41.2 L 42-54 % Mean Corpuscular Volume 91.6 79-99 fL Mean Corpuscular Hemoglobin 30.7 27.0-33.0 pg Mean Corpuscular Hemoglobin Concent 33.5 32.0-36.0 g/dL Red Cell Distribution Width 12.8 11.0-15.5 % Platelet Count 177 130-400 K/uL Mean Platelet Volume 10.7 H 7.5-10.5 fL Immature Granulocyte % (Auto) 0.3 0-1 % Neutrophils (%) (Auto) 63.1 40.0-77.0 % Lymphocytes (%) (Auto) 22.9 21.0-51.0 % Monocytes (%) (Auto) 9.6 3.0-13.0 % Eosinophils (%) (Auto) 3.3 0.0-8.0 % Basophils (%) (Auto) 0.8 0.0-5.0 % Neutrophils # (Auto) 3.9 1.8-7.7 K/uL Lymphocytes # (Auto) 1.4 1.0-4.8 K/uL Monocytes # (Auto) 0.6 0.1-1.0 K/uL Eosinophils # (Auto) 0.20 0.00-0.70 K/uL Basophils # (Auto) 0.05 0.00-0.20 K/uL Absolute Immature Granulocyte (auto 0.02 0-1 K/uL Nucleated Red Blood Cells 0.0 0.0-0.19 % Sodium Level 140 136-145 mmol/L Potassium Level 4.5 3.5-5.1 mmol/L Chloride Level 105 101-111 mmol/L Carbon Dioxide Level 32 21-32 mmol/L Blood Urea Nitrogen 11 7-18 mg/dL Creatinine 0.7 0.5-1.3 mg/dL Glomerular Filtration Rate Calc 105 >90 mL/min Random Glucose 142 H 70-105 mg/dL Total Calcium 8.3 L 8.5-10.1 mg/dL Total Bilirubin 0.9 0.2-1.0 mg/dL Aspartate Amino Transf (AST/SGOT) 23 10-37 U/L Alanine Aminotransferase (ALT/SGPT) 25 12-78 U/L Alkaline Phosphatase 67 50-136 U/L Total Protein 6.3 6.0-8.3 g/dL Albumin 2.7 L 3.5-5.0 g/dL C-Reactive Protein, Quantitative 77.30 H 0.5-3.0 mg/L Lipase 14 L 16-77 U/L ASSESSMENT: Acute on chronic pancreatitis. Leukocytosis resolving. Diabetes mellitus. Abdominal pain. Obesity. PLAN: Continue Meropenem. Continue pain management. Continue IV fluids. We will follow up on the cultures. Continue antidiabetics. Pending MRCP results. This case was reviewed and discussed with my supervising physician Dr. Ceron and the above assessment and plan was formulated and agreed upon. ATTESTATION BY PHYSICIAN I have seen and examined the patient. I reviewed the documentation, medical decision making, and treatment plan as noted by the mid-level provider above. I agree with the findings and plan of care. PARIS CERON MD, [facility] [place] Jun 21, 2025 22:42
[2025-06-22] VITALS (7 sets, daily range): BP systolic 130–152; BP diastolic 80–95; PULSE 50–94; RESP 17–20; TEMP 97.7–98.2; O2SAT 94
[2025-06-22 04:51] LABS: IMMATURE GRANULOCYTE ABSOLUTE 0.03 K/uL (0-1); NUCLEATED RED BLOOD CELLS 0.0 % (0.0-0.19); PLATELET COUNT (AUTO) 181 K/uL (130-400); RED BLOOD CELL COUNT(AUTO) 4.75 MIL/uL (4.50-6.20); RED CELL DISTRIBUTION WIDTH 12.4 % (11.0-15.5); WHITE BLOOD COUNT (AUTO) 6.5 K/uL (4.8-10.8)
[2025-06-22 05:04] LABS: CREATININE 0.8 mg/dL (0.5-1.3); GLOMERULAR FILTR. RATE CALC 101.0 mL/min (>90); GLUCOSE,RANDOM 111.0 mg/dL (70-105); SODIUM SERUM 139.0 mmol/L (136-145); UREA NITROGEN, BLOOD 8.0 mg/dL (7-18)
--- NOTE | 2025-06-22 09:28 | NUR ---
SURGERY STANDPOINT PER HUANG LEONARD. NO SURGERY INTERVENTION AT THIS TIME. AWARE OF MRCP RESULTS. NO FURTHER ORDERS GIVEN.
--- NOTE | 2025-06-22 09:46 | PN ---
GASTROENTEROLOGY PROGRESS NOTE Date of Visit: Jun 22, 2025 Time of Visit: 09:43 Events / Notes: [Patient remains hemodynamically stable. WBC of 7.7, hemoglobin 13.8, platelets 153. Glucose 116, CRP trending down at 77.3, albumin 2.7, lipase at 14. total bilirubin now normal at 1.0. Ultrasound showing hepatomegaly with mild fatty infiltration. Status post cholecystectomy with common bile duct measuring 5 mm within normal limits for post cholecystectomy status. Limited visualization of pancreas due to bowel gas artifact no definite peripancreatic fluid or pseudocyst seen in the visualized region. Normal right kidney measuring 13.3 By 6.1 x 6.3 cm with no calculus, hydronephrosis, or for focal lesions. MRCP pending. Patient resting in chair. VSS. No c/o reported. He reports taking tejocote root from [place] for weight loss. Informed we will wait for MRCP results. He v/u. 06/21/25: No acute events overnight. Patient remains hemodynamically stable. Patient is tolerating fluids without any nausea or vomiting. Continues on mancilla toprazole 40 mg IV daily. He has not received any pain medicine in the past two days. MRCP pending. On exam, patient is sitting in bed in no acute distress. He reports he has not had anymore abdominal pain. Informed of pending MRCP results. He v/u. 06/22/25: Patient has remained hemodynamically stable and afebrile. WBC at 6.5, hemoglobin 14.6. LFTs and lipase are normal. MRCP results: The common bile duct is mildly prominent (7.4 mm), likely post- cholecystectomy caliber, with no features of choledocholithiasis or biliary obstruction. Persistent diffuse pancreatic enlargement, mild peripancreatic fluid, and no definite organized collection consistent with interstitial edematous pancreatitis. Recommend follow-up contrast-enhanced CT or MRI in 4???6 weeks is to document complete resolution and to exclude evolving pancreatic necrosis or pseudocyst formation if clinically appropriate. Associated mild hepatomegaly, mild splenomegaly, and minimal bilateral pleural effusions. MRCP results given to patient with recommendations for EUS. Gave patient option to have EUS tomorrow or as output. Patient agreed to proceed with EUS in am. ] Review of Systems: CONSTITUTIONAL: No malaise or change in sensation of wellbeing. ENMT: No rhinorrhea, otorrhea, sinus pain, ear ache. CARDIOVASCULAR: No angina, palpitations, orthopnea or paroxysmal dyspnea. RESPIRATORY: No SOB. GASTROINTESTINAL: No abdominal pain, nausea, vomiting, diarrhea, hematemesis, melena or change in the patient's habitual bowel movements consistency/number. GENITOURINARY: No dysuria, hematuria or change in bladder continence. MUSCULOSKELETAL: No new muscle pain or decrease in muscular strength. No new joint swelling, redness or tenderness. SKIN: No new rash. Physical Exam: GEN: Awake, alert, oriented in person, time and place, and in no acute distress. HEENT: No rhinorrhea. Oral mucosa is pink, moist and within normal limits. CHEST: Lung auscultation revealed normal breath sounds bilaterally. CARDIAC:Heart sounds are regular. ABD: Soft, non-tender and not distended. No peritoneal signs on palpation. Normal bowel sounds. Last bm 06/17/25 EXT: No cyanosis or clubbing. No edema. SKIN: Intact. No rashes. NEURO: Alert and oriented to name, place and person.No focal motor deficits. Normal speech. Vital Signs (last 8hr) Date Time Temp Pulse Resp B/P (MAP) Pulse Ox O2 Delivery O2 Flow Rate FiO2 06/22/25 07:46 97.7 55 20 141/80 94 Room Air 21 06/22/25 04:03 98.2 50 17 130/81 95 Room Air Laboratory: [ ] Laboratory: Test 06/22/25 05:26 06/22/25 04:30 06/21/25 05:03 Range/Units Whole Blood Glucose 101 70-110 MG/DL White Blood Count 6.5 4.8-10.8 K/uL Red Blood Count 4.75 4.50-6.20 MIL/uL Hemoglobin 14.6 14.0-18.0 g/dL Hematocrit 43.0 42-54 % Mean Corpuscular Volume 90.5 79-99 fL Mean Corpuscular Hemoglobin 30.7 27.0-33.0 pg Mean Corpuscular Hemoglobin Concent 34.0 32.0-36.0 g/dL Red Cell Distribution Width 12.4 11.0-15.5 % Platelet Count 181 130-400 K/uL Mean Platelet Volume 10.2 7.5-10.5 fL Immature Granulocyte % (Auto) 0.5 0-1 % Neutrophils (%) (Auto) 59.6 40.0-77.0 % Lymphocytes (%) (Auto) 24.0 21.0-51.0 % Monocytes (%) (Auto) 11.0 3.0-13.0 % Eosinophils (%) (Auto) 4.1 0.0-8.0 % Basophils (%) (Auto) 0.8 0.0-5.0 % Neutrophils # (Auto) 3.9 1.8-7.7 K/uL Lymphocytes # (Auto) 1.6 1.0-4.8 K/uL Monocytes # (Auto) 0.7 0.1-1.0 K/uL Eosinophils # (Auto) 0.27 0.00-0.70 K/uL Basophils # (Auto) 0.05 0.00-0.20 K/uL Absolute Immature Granulocyte (auto 0.03 0-1 K/uL Nucleated Red Blood Cells 0.0 0.0-0.19 % Sodium Level 139 136-145 mmol/L Potassium Level 4.7 3.5-5.1 mmol/L Chloride Level 104 101-111 mmol/L Carbon Dioxide Level 31 21-32 mmol/L Blood Urea Nitrogen 8 7-18 mg/dL Creatinine 0.8 0.5-1.3 mg/dL Glomerular Filtration Rate Calc 101 >90 mL/min Random Glucose 111 H 70-105 mg/dL Total Calcium 8.7 8.5-10.1 mg/dL Total Bilirubin 0.9 0.2-1.0 mg/dL Aspartate Amino Transf (AST/SGOT) 23 10-37 U/L Alanine Aminotransferase (ALT/SGPT) 25 12-78 U/L Alkaline Phosphatase 67 50-136 U/L Total Protein 6.3 6.0-8.3 g/dL Albumin 2.7 L 3.5-5.0 g/dL Current Medications Medications (Trade) Dose Ordered Sig/Kilo Route PRN Reason Start Time Stop Time Status Last Admin Dose Admin Acetaminophen (TYLenol 325MG TAB) 650 mg Q6H PRN PO MILD PAIN (1-3) 06/18/25 19:00 07/18/25 18:59 Albuterol (DUOneb) 1 udvial Q6H PRN IH SHORTNESS OF BREATH 06/18/25 19:00 07/18/25 18:59 Alprazolam (XANax 0.5MG) 0.5 mg ONCE PO 06/20/25 19:00 06/20/25 23:59 DC 06/20/25 18:38 0.5 MG Aspirin (Aspirin 81mg Ec Tab) 81 mg DAILY PO 06/20/25 09:00 07/20/25 08:59 06/22/25 08:34 81 MG Atorvastatin Calcium (LIPItor 20MG) 20 mg HS PO 06/19/25 21:00 07/19/25 20:59 06/21/25 22:03 20 MG Dextrose (D50w) 50 ml AD PRN IV HYPOGLYCEMIA PROTOCOL 06/18/25 20:00 07/18/25 19:59 Dextrose/Sodium Chloride 1,000 ml @ 80 mls/hr [id number] IV 06/19/25 12:00 07/19/25 11:59 06/21/25 08:57 150 MLS/HR Diphenhydramine HCl (BENAdryl INJ) 25 mg Q6H PRN IV ITCHING/ rash 06/18/25 19:30 07/18/25 19:29 Enoxaparin Sodium (Lovenox) 40 mg DAILY SQ 06/19/25 09:00 06/19/25 08:36 DC Enoxaparin Sodium (Lovenox) 40 mg HS SQ 06/19/25 21:00 07/19/25 08:59 06/21/25 22:09 40 MG Glucagon (Glucagon 1mg Kit) 1 mg AD PRN IM HYPOGLYCEMIA PROTOCOL 06/18/25 20:00 07/18/25 19:59 Hydralazine HCl (APRESOLine 20MG INJ) 10 mg Q6H PRN IV ADMINISTER FOR SBP > 170 06/18/25 19:00 07/18/25 18:59 Hydromorphone HCl (DiLAUDid 0.5MG INJ) 0.5 mg Q6H PRN IVP SEVERE PAIN (7-10) 06/18/25 20:30 06/23/25 20:29 06/19/25 01:02 0.5 MG Insulin Human Regular (humuLIN R 100 UNIT/ML 3ML) INSULIN SLIDING SCAL... ACHS SQ 06/18/25 21:00 06/20/25 07:31 DC Insulin Human Regular (humuLIN R 100 UNIT/ML 3ML) INSULIN SLIDING SCAL... ACHS SQ 06/20/25 07:30 07/20/25 07:29 Ketorolac Tromethamine (toRADol) 15 mg Q12H PRN IV MODERATE PAIN (4-6) 06/18/25 20:30 06/21/25 20:30 DC Lactated Ringer's 1,000 ml @ 150 mls/hr Q6H40M IV 06/18/25 19:00 06/19/25 11:44 DC 06/19/25 01:02 150 MLS/HR Lisinopril (Prinivil 10mg) 10 mg DAILY PO 06/20/25 09:00 07/20/25 08:59 06/22/25 08:34 10 MG Magnesium Sulfate 50 ml @ 0 mls/hr PROTOCOL IV 06/18/25 19:00 07/18/25 18:59 Meropenem (Merrem 1gm) 1 gm Q8H IVPB 06/18/25 19:30 06/28/25 19:29 06/22/25 03:04 1 GM Ondansetron HCl (zoFRAN 4MG INJ) 4 mg Q6H PRN IVP NAUSEA/VOMITING 06/18/25 19:00 07/18/25 18:59 06/19/25 01:02 4 MG Pantoprazole Sodium (PROTonix 40MG INJ) 40 mg DAILY IVP 06/19/25 09:00 07/19/25 08:59 06/22/25 08:34 40 MG Pharmacy Profile Note (Pharmacy Communication) 1 each ONCE MISC 06/18/25 19:30 06/18/25 19:11 DC Potassium Chloride 100 ml @ 100 mls/hr AD PRN IV POTASSIUM PROTOCOL 06/18/25 19:00 07/18/25 18:59 Potassium Chloride (K-Dur/Klor-Con 20meq) 20 meq AD PRN PO POTASSIUM PROTOCOL 06/18/25 19:00 07/18/25 18:59 Potassium Chloride (KCl 10% Elixir 20meq/15ml) 20 meq AD PRN PO POTASSIUM PROTOCOL 06/18/25 19:00 07/18/25 18:59 Thiamine HCl (Vitamin B-1) 100 mg Q24H IVP 06/18/25 19:00 07/18/25 18:59 06/21/25 18:34 100 MG Diagnostics / Radiology: [COPY/PASTE HERE IF NO REPORTS PLEASE DELETE SECTION] Assessment: [Abdominal pain Acute Pancreatitis Abnormal findings on MRCP imaging. Type 2 Diabetes Hypertension ] Possible causes to consider include alcohol, idiopathic, hypertriglyceridemia, medications, hypercalcemia, ERCP, celiac disease, autoimmune pancreatitis, vasculitis Plan: Case discussed Dr. Love 1.Clear fluids for dinner. NPO after midnight 2. Plan for EUS in am. 3. Continue with IV hydration 4. Supportive care with opioid analgesics (avoid NSAIDs) and antiemetics 5. Close patient monitoring of vital signs including O2 saturations, urine output, and electrolyte replacement 6. Please call with questions, concerns, and change in clinical status. Thank you for allowing us to participate in the care of this patient! ] SIENNA MÉNDEZ Jun 22, 2025 09:46
--- NOTE | 2025-06-22 09:58 | NUR ---
EUS INFORMED PT GI WANTS TO PROCEED WITH EUS. PT STATES HE DOES NOT WANT TO PROCEED WITH PROCEDURE AT THIS TIME AND REQUESTS TO SPEAK TO PRIMARY CARE PROVIDER. DR. GUZMAN MADE AWARE. NO FURTHERS GIVEN AT THIS TIME.
--- NOTE | 2025-06-22 11:16 | PN ---
GENERAL SURGERY PROGRESS NOTE Date/Time Patient Seen: [ 06/22/2025 09:45] Problem List: [ 59-year-old male with concerns of acute complicated pancreatitis ] Interval History: [ MRCP done on 06/20/2025 reported as common bile duct is mildly prominent (7.4 mm), likely post-cholecystectomy caliber, with no features of choledocholithiasis or biliary obstruction.Persistent diffuse pancreatic enlargement, mild peripancreatic fluid, and no definite organized collection consistent with interstitial edematous pancreatitis. Recommend follow-up contrast-enhanced CT or MRI in 4-6 weeks is to document complete resolution and to exclude evolving pancreatic necrosis or pseudocyst formation if clinically appropriate.Associated mild hepatomegaly, mild splenomegaly, and minimal bilateral pleural effusions. Patient has remained pain-free Patient continues on clear liquids, tolerating without any nausea, vomiting or abdominal pain WBCs 6.5 H&H 14.6 and 43.0 Bilirubin done yesterday was at 0.9 Lipase done on 06/20/2025 was normal at 14 ] Interval history: This 59-year-old male seen in his room resting Patient is able to undergo MRCP yesterday but currently pending results No abdominal pain reported Patient remains NPO patient on IV fluids Current Medications Medications (Trade) Dose Ordered Sig/Kilo Route Start Time Stop Time Status Last Admin Dose Admin Alprazolam (XANax 0.5MG) 0.5 mg ONCE PO 06/20/25 19:00 06/20/25 23:59 DC 06/20/25 18:38 0.5 MG Aspirin (Aspirin 81mg Ec Tab) 81 mg DAILY PO 06/20/25 09:00 07/20/25 08:59 06/22/25 08:34 81 MG Atorvastatin Calcium (LIPItor 20MG) 20 mg HS PO 06/19/25 21:00 07/19/25 20:59 06/21/25 22:03 20 MG Dextrose/Sodium Chloride 1,000 ml @ 80 mls/hr [id number] IV 06/19/25 12:00 07/19/25 11:59 06/21/25 08:57 150 MLS/HR Enoxaparin Sodium (Lovenox) 40 mg DAILY SQ 06/19/25 09:00 06/19/25 08:36 DC Enoxaparin Sodium (Lovenox) 40 mg HS SQ 06/19/25 21:00 07/19/25 08:59 06/21/25 22:09 40 MG Insulin Human Regular (humuLIN R 100 UNIT/ML 3ML) INSULIN SLIDING SCAL... ACHS SQ 06/18/25 21:00 06/20/25 07:31 DC Insulin Human Regular (humuLIN R 100 UNIT/ML 3ML) INSULIN SLIDING SCAL... ACHS SQ 06/20/25 07:30 07/20/25 07:29 Lactated Ringer's 1,000 ml @ 150 mls/hr [id number] IV 06/18/25 19:00 06/19/25 11:44 DC 06/19/25 01:02 150 MLS/HR Lisinopril (Prinivil 10mg) 10 mg DAILY PO 06/20/25 09:00 07/20/25 08:59 06/22/25 08:34 10 MG Magnesium Sulfate 50 ml @ 0 mls/hr PROTOCOL IV 06/18/25 19:00 07/18/25 18:59 Meropenem (Merrem 1gm) 1 gm Q8H IVPB 06/18/25 19:30 06/28/25 19:29 06/22/25 03:04 1 GM Pantoprazole Sodium (PROTonix 40MG INJ) 40 mg DAILY IVP 06/19/25 09:00 07/19/25 08:59 06/22/25 08:34 40 MG Pharmacy Profile Note (Pharmacy Communication) 1 each ONCE MISC 06/18/25 19:30 06/18/25 19:11 DC Thiamine HCl (Vitamin B-1) 100 mg Q24H IVP 06/18/25 19:00 07/18/25 18:59 06/21/25 18:34 100 MG Physical Examination: GENERAL: [No acute distress, male, comfortably sitting up in chair.] HEAD: [Normocephalic.] EYES: [conjunctiva and sclera normal.] ENT: [Hearing grossly intact.] NECK: [Supple without JVD.] LUNGS: [Clear breath sounds bilaterally.] HEART: [Normal rate and rhythm.] VASC: [Peripheral pulses +2 bilaterally.] ABD: [Bowel sounds normal, soft, nontender.] : [Not examined] EXT: [No edema.] SKIN: [No rashes or lesions noted.] NEURO: [Awake, alert, and oriented x3. No focal sensory or strength deficits not ed.] Vital Signs (last 8hr) Date Time Temp Pulse Resp B/P (MAP) Pulse Ox O2 Delivery O2 Flow Rate FiO2 06/22/25 07:46 97.7 55 20 141/80 94 Room Air 21 06/22/25 04:03 98.2 50 17 130/81 95 Room Air Laboratory: [ ] Hematology Labs: Test 06/22/25 04:30 Range/Units White Blood Count 6.5 4.8-10.8 K/uL Red Blood Count 4.75 4.50-6.20 MIL/uL Hemoglobin 14.6 14.0-18.0 g/dL Hematocrit 43.0 42-54 % Mean Corpuscular Volume 90.5 79-99 fL Mean Corpuscular Hemoglobin 30.7 27.0-33.0 pg Mean Corpuscular Hemoglobin Concent 34.0 32.0-36.0 g/dL Red Cell Distribution Width 12.4 11.0-15.5 % Platelet Count 181 130-400 K/uL Mean Platelet Volume 10.2 7.5-10.5 fL Immature Granulocyte % (Auto) 0.5 0-1 % Neutrophils (%) (Auto) 59.6 40.0-77.0 % Lymphocytes (%) (Auto) 24.0 21.0-51.0 % Monocytes (%) (Auto) 11.0 3.0-13.0 % Eosinophils (%) (Auto) 4.1 0.0-8.0 % Basophils (%) (Auto) 0.8 0.0-5.0 % Neutrophils # (Auto) 3.9 1.8-7.7 K/uL Lymphocytes # (Auto) 1.6 1.0-4.8 K/uL Monocytes # (Auto) 0.7 0.1-1.0 K/uL Eosinophils # (Auto) 0.27 0.00-0.70 K/uL Basophils # (Auto) 0.05 0.00-0.20 K/uL Absolute Immature Granulocyte (auto 0.03 0-1 K/uL Nucleated Red Blood Cells 0.0 0.0-0.19 % Chemistry Labs: Test 06/22/25 05:26 06/22/25 04:30 06/21/25 05:03 Range/Units Whole Blood Glucose 101 70-110 MG/DL Sodium Level 139 136-145 mmol/L Potassium Level 4.7 3.5-5.1 mmol/L Chloride Level 104 101-111 mmol/L Carbon Dioxide Level 31 21-32 mmol/L Blood Urea Nitrogen 8 7-18 mg/dL Creatinine 0.8 0.5-1.3 mg/dL Glomerular Filtration Rate Calc 101 >90 mL/min Random Glucose 111 H 70-105 mg/dL Total Calcium 8.7 8.5-10.1 mg/dL Total Bilirubin 0.9 0.2-1.0 mg/dL Aspartate Amino Transf (AST/SGOT) 23 10-37 U/L Alanine Aminotransferase (ALT/SGPT) 25 12-78 U/L Alkaline Phosphatase 67 50-136 U/L Total Protein 6.3 6.0-8.3 g/dL Albumin 2.7 L 3.5-5.0 g/dL Diagnostics / Radiology: [place] [address] IMAGING REPORT Signed PATIENT: JAH ALICIA MR#: [id number] : 1965 SEX: M AGE: 59 LOCATION: [facility] ORDER 56 STATUS: ADM IN REPORT#: [id number] SERVICE 54 REASON: Rule out choledocholithiasis ORDERING PHYSICIAN: CARSON ALICIA Jr. PAC PROCEDURE: MRCP WO - MRCP(ABDWO)CHOLANGIOPANCREATOG EXAM: MRCP/MR Abdomen Without IV contrast. CLINICAL HISTORY: Rule out choledocholithiasis TECHNIQUE: Multiplanar, multisequence MR imaging of the abdomen including MRCP sequences was performed without intravenous contrast administration. CONTRAST: None. COMPARISON: CT ABDOMEN/PELVIS W/CONTRAST Jun 19, 2025 US ABDOMINAL RUQ LTD Jun 19, 2025 FINDINGS: Study limited by patient motion. LOWER THORAX: Bilateral minimal pleural effusion. LIVER: Liver is mildly enlarged, measuring approximately 19 cm in craniocaudal dimension. No focal hepatic lesion. GALLBLADDER AND BILE DUCTS: Status post cholecystectomy. No intrahepatic or extrahepatic biliary ductal dilatation. The common bile duct measures 7.4 mm, within upper limits of normal for post-cholecystectomy status. No intraluminal calculus or filling defect identified. PANCREAS: The pancreas is diffusely enlarged with heterogeneous T2 signal intensity and irregular margins, predominantly involving the head and body. Minimal peripancreatic fluid and inflammatory stranding are present. No definite non-enhancing walled-off collections are seen. The main pancreatic duct is mildly prominent, measuring approximately 5 mm, with no obstructing stone or mass. SPLEEN: Mildly enlarged 13 cm. ADRENALS: Unremarkable. KIDNEYS: The kidneys appear within normal limits. No hydronephrosis or mass evident. Minimal perinephric fluid rim seen. STOMACH AND BOWEL: Limited evaluation of the stomach and bowel demonstrates no acute process. LYMPH NODES: No lymphadenopathy is evident. VASCULATURE: No abdominal aortic aneurysm. IMPRESSION: Study limited by patient motion. The common bile duct is mildly prominent (7.4 mm), likely post-cholecystectomy caliber, with no features of choledocholithiasis or biliary obstruction. Persistent diffuse pancreatic enlargement, mild peripancreatic fluid, and no definite organized collection consistent with interstitial edematous pancreatitis. Recommend follow-up contrast-enhanced CT or MRI in 4???6 weeks is to document complete resolution and to exclude evolving pancreatic necrosis or pseudocyst formation if clinically appropriate. Associated mild hepatomegaly, mild splenomegaly, and minimal bilateral pleural effusions. /[place] DICTATED BY: STEF BATEMAN MD DATE: 06/21/251946 ELECTRONICALLY SIGNED BY: STEF BATEMAN MD DATE: 06/21/251946 Impression and Plan: [Clinically, patient is doing significantly better, without any abdominal pain, nausea or vomiting MRCP without any choledocholithiasis or biliary obstructions We will advance diet today From surgical standpoint, patient may be discharged home if tolerating solid foods Office follow-up with Dr. Almanza in 2-3 weeks Surgical team will sign off this case for now Dr. Almanza updated on patient's status ] Surgical case has been discussed with my supervising physician in the above plan was formulated and agreed upon We appreciate the hospitalist team for us to participate in patient's care. Greater than 45 minutes of time spent patient, reviewing chart, working on documentation ATTESTATION BY PHYSICIAN I have seen and examined the patient. I reviewed the documentation, medical decision making, and treatment plan as noted by the mid-level provider above. I agree with the findings and plan of care. MD ZE PAINTER LETICIA A [facility] Jun 22, 2025 11:16
--- NOTE | 2025-06-22 14:38 | PN ---
[facility] PROGRESS NOTE Date of Service: Jun 22, 2025 Time of Service: 14:28 HISTORY OF PRESENT ILLNESS: Date of service: 06/18/2025, patient was seen in [facility] [place] This is a patient who was transferred from [facility] ER for further treatment and management of acute pancreatitis. This is a 59-year-old male with underlying history of obesity, type 2 diabetes mellitus, hypertension, hyperlipidemia, patient with previous history of pancreatitis in 2020 complicated by necrotizing pancreatitis, history of cholecyst[place] [address] Almanza who presented as a transfer from [facility] Emergency room for further evaluation of pancreatitis. Patient st ates that he was having some [id number] intensity epigastric pain associated with nausea that started yesterday with mild pain radiating to the back. Pain was about 3-4/10 in intensity. Symptoms were nonresolving prompting him to come to the ER today for further evaluation. Reports having some subjective chills as well. He has been doing relatively well since his hospitalization in 2020 and denies any recent hospitalization. Reports that he was hospitalized in [facility] in 2020 for necrotizing pancreatitis with pseudocyst. Patient had a prolonged hospitalization for management of pancreatitis. He also has a history of cholecystectomy due to cholecystitis in July,. Patient denies any history of hypertriglyceridemia, denies any significant alcohol consumption and denies any familial history of pancreatitis. He has been maintained on Jardiance for several years for management of type 2 diabetes mellitus. He is currently maintained on Tresiba 80 units daily and prandial insulin 30 units 3 times a day with meals for management of type 2 diabetes mellitus. On Presentation to the hospital, patient was noted to be afebrile and hemodynamically stable. Patient underwent a CT abdomen pelvis without IV contrast which showed findings of extensive peripancreatic edema with stranding with peripancreatic prominent lymph nodes in fluid tracking to the anterior left pararenal space. Patient was also found to have focus of gas and distal pancreas with necrotizing pancreatitis/pancreatic abscess which could not be ruled out. SUBJECTIVE: 06/19/25: Patient was seen and evaluated in room 311, patient was lying on the bed and denies abdominal pain but rather reports it as abdominal discomfort. patient denies any fever, chills. Patient denies any changes in bladder movement or burning sensation during urination. Patient mentioned that he last passed stool from Thursday. Patient is currently on NPO. Pertinent labs- WBC-10.3, Lipase -16, amylase-43, Troponin-51, CRP-96.5, TG-51, cholesterol-151 06/20/25: Patient was seen and evaluated in room 311, patient was lying on the bed and denies abdominal pain. Patient reports feeling better and doesn't have any active complaints. As per general surgery, gastroenterology he was scheduled for MRCP. But patient denied since he is claustrophobic. waiting for further recommendations from surgery and gastroenterology. Patient mentioned that he last passed stool from Thursday. Patient is currently on NPO. Pertinent labs- WBC- 7.7, Lipase -14, amylase-43, Troponin-51, CRP-77.30, TG-51, cholesterol-151 06/21/25: Patient was seen and evaluated in room 311. Patient reports feeling a lot better today. patient doesn't have any active complaints. Patient reports that he was able to get the MRCP done yesterday evening after being given Xanax. pedning reports. waiting for further recommendations from surgery and gastroenterology. 06/22/25: Patient was seen and evaluated in room 311. Patient denies any active complaints. MRCP results show common bile duct is mildly prominent (7.4 mm), with no features of choledocholithiasis or biliary obstruction. Persistent diffuse pancreatic enlargement, mild peripancreatic fluid. Associated mild hepatomegaly, mild splenomegaly, and minimal bilateral pleural effusions. GI recommended to do an EUS in the morning tomorrow, patient initially denied but later agreed to it and he is scheduled for EUS tomorrow in AM. REVIEW OF SYSTEMS CONSTITUTIONAL: Reports having chills NEUROLOGICAL: Denies headache, amaurosis fugax, motor weakness, sensory deficit, vertigo/spinning sensation, gait abnormalities, or tremors. ENT: No hearing loss, otalgia, otorrhea, rhinitis, rhinorrhea, hoarseness, or sore throat. CARDIOVASCULAR: Denies any exertional angina, dyspnea on exertion, orthopnea, paroxysmal nocturnal dyspnea, palpitations, life-threatening arrhythmias, claudication. PULMONARY: Denies any shortness of breath, cough, phlegm/sputum, hemoptysis, pleuritic chest pain. SLEEP: Denies morning headaches, daytime somnolence or napping. Denies difficulty falling asleep, staying asleep, waking from sleep. Denies knowledge of snoring. GASTROINTESTINAL: Nausea, vomiting , epigastric abdominal pain GENITOURINARY: Denies frequency, urgency, nocturia, hematuria or incontinence (Storage/Irritative symptoms.) Low urinary stream, straining to void, urinary intermittency or hesitancy, splitting of the voiding stream, terminal dribbling. ENDOCRINOLOGIC: Denies polyuria, polydipsia, polyphagia or heat/cold intolerances. HEMATOLOGIC: Denies thrombophilia/previous clots, or coagulopathy/bleeding disorders. ONCOLOGIC: Denies personal history of malignancy. DERMATOLOGIC: Denies rashes or pruritus. PSYCHIATRIC: Denies any suicidal or homicidal ideation. Denies hallucinations. PHYSICAL EXAM GENERAL APPEARANCE: The patient is awake, alert, and oriented, in no acute cardiopulmonary distress. NEUROLOGICAL: Cranial nerves II-XII grossly intact. Motor is 5/5 in bilateral upper and lower extremities proximal to distal. No sensory deficits. HEENT: Face is symmetric. Pupils are equal and reactive. Extraocular movements are intact. NECK: Supple. No JVD. No thyromegaly. No submental, submandibular, pre-/postau ricular, occipital or supraclavicular lymphadenopathy. CHEST: Normal chest expansion. No Telemetry. LUNGS: Absence of any rales, rhonchi or any wheezing. CARDIOVASCULAR: Regular. S1 and S2 normal. No appreciable rubs, murmurs or gallops. ABDOMEN: Soft, mild tenderness to palpation of the epigastric area with no rebound or guarding : Deferred. No Sandoval. EXTREMITIES: Non-edematous and not cyanotic. No clubbing. Good capillary refill. SKIN: No skin breakdown. Vital Signs (last 8hr) Date Time Temp Pulse Resp B/P (MAP) Pulse Ox O2 Delivery O2 Flow Rate FiO2 06/22/25 12:27 94 138/95 06/22/25 12:00 97.9 53 18 152/82 96 Room Air 21 06/22/25 08:34 94 Room Air* 0 21 06/22/25 07:46 97.7 55 20 141/80 94 Room Air 21 LABS: Laboratory: Test 06/22/25 12:11 06/22/25 04:30 06/21/25 05:03 Range/Units Whole Blood Glucose 131 H 70-110 MG/DL White Blood Count 6.5 4.8-10.8 K/uL Red Blood Count 4.75 4.50-6.20 MIL/uL Hemoglobin 14.6 14.0-18.0 g/dL Hematocrit 43.0 42-54 % Mean Corpuscular Volume 90.5 79-99 fL Mean Corpuscular Hemoglobin 30.7 27.0-33.0 pg Mean Corpuscular Hemoglobin Concent 34.0 32.0-36.0 g/dL Red Cell Distribution Width 12.4 11.0-15.5 % Platelet Count 181 130-400 K/uL Mean Platelet Volume 10.2 7.5-10.5 fL Immature Granulocyte % (Auto) 0.5 0-1 % Neutrophils (%) (Auto) 59.6 40.0-77.0 % Lymphocytes (%) (Auto) 24.0 21.0-51.0 % Monocytes (%) (Auto) 11.0 3.0-13.0 % Eosinophils (%) (Auto) 4.1 0.0-8.0 % Basophils (%) (Auto) 0.8 0.0-5.0 % Neutrophils # (Auto) 3.9 1.8-7.7 K/uL Lymphocytes # (Auto) 1.6 1.0-4.8 K/uL Monocytes # (Auto) 0.7 0.1-1.0 K/uL Eosinophils # (Auto) 0.27 0.00-0.70 K/uL Basophils # (Auto) 0.05 0.00-0.20 K/uL Absolute Immature Granulocyte (auto 0.03 0-1 K/uL Nucleated Red Blood Cells 0.0 0.0-0.19 % Sodium Level 139 136-145 mmol/L Potassium Level 4.7 3.5-5.1 mmol/L Chloride Level 104 101-111 mmol/L Carbon Dioxide Level 31 21-32 mmol/L Blood Urea Nitrogen 8 7-18 mg/dL Creatinine 0.8 0.5-1.3 mg/dL Glomerular Filtration Rate Calc 101 >90 mL/min Random Glucose 111 H 70-105 mg/dL Total Calcium 8.7 8.5-10.1 mg/dL Total Bilirubin 0.9 0.2-1.0 mg/dL Aspartate Amino Transf (AST/SGOT) 23 10-37 U/L Alanine Aminotransferase (ALT/SGPT) 25 12-78 U/L Alkaline Phosphatase 67 50-136 U/L Total Protein 6.3 6.0-8.3 g/dL Albumin 2.7 L 3.5-5.0 g/dL Current Medications Medications (Trade) Dose Ordered Sig/Kilo Route PRN Reason Start Time Stop Time Status Last Admin Dose Admin Acetaminophen (TYLenol 325MG TAB) 650 mg Q6H PRN PO MILD PAIN (1-3) 06/18/25 19:00 07/18/25 18:59 Albuterol (DUOneb) 1 udvial Q6H PRN IH SHORTNESS OF BREATH 06/18/25 19:00 07/18/25 18:59 Alprazolam (XANax 0.5MG) 0.5 mg ONCE PO 06/20/25 19:00 06/20/25 23:59 DC 06/20/25 18:38 0.5 MG Aspirin (Aspirin 81mg Ec Tab) 81 mg DAILY PO 06/20/25 09:00 07/20/25 08:59 06/22/25 08:34 81 MG Atorvastatin Calcium (LIPItor 20MG) 20 mg HS PO 06/19/25 21:00 07/19/25 20:59 06/21/25 22:03 20 MG Dextrose (D50w) 50 ml AD PRN IV HYPOGLYCEMIA PROTOCOL 06/18/25 20:00 07/18/25 19:59 Dextrose/Sodium Chloride 1,000 ml @ 80 mls/hr [id number] IV 06/19/25 12:00 07/19/25 11:59 06/21/25 08:57 150 MLS/HR Diphenhydramine HCl (BENAdryl INJ) 25 mg Q6H PRN IV ITCHING/ rash 06/18/25 19:30 07/18/25 19:29 Enoxaparin Sodium (Lovenox) 40 mg DAILY SQ 06/19/25 09:00 06/19/25 08:36 DC Enoxaparin Sodium (Lovenox) 40 mg HS SQ 06/19/25 21:00 07/19/25 08:59 06/21/25 22:09 40 MG Glucagon (Glucagon 1mg Kit) 1 mg AD PRN IM HYPOGLYCEMIA PROTOCOL 06/18/25 20:00 07/18/25 19:59 Hydralazine HCl (APRESOLine 20MG INJ) 10 mg Q6H PRN IV ADMINISTER FOR SBP > 170 06/18/25 19:00 07/18/25 18:59 Hydromorphone HCl (DiLAUDid 0.5MG INJ) 0.5 mg Q6H PRN IVP SEVERE PAIN (7-10) 06/18/25 20:30 06/23/25 20:29 06/19/25 01:02 0.5 MG Insulin Human Regular (humuLIN R 100 UNIT/ML 3ML) INSULIN SLIDING SCAL... ACHS SQ 06/18/25 21:00 06/20/25 07:31 DC Insulin Human Regular (humuLIN R 100 UNIT/ML 3ML) INSULIN SLIDING SCAL... ACHS SQ 06/20/25 07:30 07/20/25 07:29 Ketorolac Tromethamine (toRADol) 15 mg Q12H PRN IV MODERATE PAIN (4-6) 06/18/25 20:30 06/21/25 20:30 DC Lactated Ringer's 1,000 ml @ 150 mls/hr Q6H40M IV 06/18/25 19:00 06/19/25 11:44 DC 06/19/25 01:02 150 MLS/HR Lisinopril (Prinivil 10mg) 10 mg DAILY PO 06/20/25 09:00 07/20/25 08:59 06/22/25 08:34 10 MG Magnesium Sulfate 50 ml @ 0 mls/hr PROTOCOL IV 06/18/25 19:00 07/18/25 18:59 Meropenem (Merrem 1gm) 1 gm Q8H IVPB 06/18/25 19:30 06/28/25 19:29 06/22/25 11:13 1 GM Ondansetron HCl (zoFRAN 4MG INJ) 4 mg Q6H PRN IVP NAUSEA/VOMITING 06/18/25 19:00 07/18/25 18:59 06/19/25 01:02 4 MG Pantoprazole Sodium (PROTonix 40MG INJ) 40 mg DAILY IVP 06/19/25 09:00 07/19/25 08:59 06/22/25 08:34 40 MG Pharmacy Profile Note (Pharmacy Communication) 1 each ONCE MISC 06/18/25 19:30 06/18/25 19:11 DC Potassium Chloride 100 ml @ 100 mls/hr AD PRN IV POTASSIUM PROTOCOL 06/18/25 19:00 07/18/25 18:59 Potassium Chloride (K-Dur/Klor-Con 20meq) 20 meq AD PRN PO POTASSIUM PROTOCOL 06/18/25 19:00 07/18/25 18:59 Potassium Chloride (KCl 10% Elixir 20meq/15ml) 20 meq AD PRN PO POTASSIUM PROTOCOL 06/18/25 19:00 07/18/25 18:59 Thiamine HCl (Vitamin B-1) 100 mg Q24H IVP 06/18/25 19:00 07/18/25 18:59 06/21/25 18:34 100 MG DIAGNOSTICS / RADIOLOGY: [place] [address] IMAGING REPORT Signed PATIENT: RAAD ALICIA MR#: [id number] : 1965 SEX: M AGE: 59 LOCATION: 3B ORDER 56 STATUS: ADM IN REPORT#: [id number] SERVICE 54 REASON: Rule out choledocholithiasis ORDERING PHYSICIAN: CARSON ALICIA Jr. PAC PROCEDURE: MRCP WO - MRCP(ABDWO)CHOLANGIOPANCREATOG EXAM: MRCP/MR Abdomen Without IV contrast. CLINICAL HISTORY: Rule out choledocholithiasis TECHNIQUE: Multiplanar, multisequence MR imaging of the abdomen including MRCP sequences was performed without intravenous contrast administration. CONTRAST: None. COMPARISON: CT ABDOMEN/PELVIS W/CONTRAST Jun 19, 2025 US ABDOMINAL RUQ LTD Jun 19, 2025 FINDINGS: Study limited by patient motion. LOWER THORAX: Bilateral minimal pleural effusion. LIVER: Liver is mildly enlarged, measuring approximately 19 cm in craniocaudal dimension. No focal hepatic lesion. GALLBLADDER AND BILE DUCTS: Status post cholecystectomy. No intrahepatic or extrahepatic biliary ductal dilatation. The common bile duct measures 7.4 mm, within upper limits of normal for post-cholecystectomy status. No intraluminal calculus or filling defect identified. PANCREAS: The pancreas is diffusely enlarged with heterogeneous T2 signal intensity and irregular margins, predominantly involving the head and body. Minimal peripancreatic fluid and inflammatory stranding are present. No definite non-enhancing walled-off collections are seen. The main pancreatic duct is mildly prominent, measuring approximately 5 mm, with no obstructing stone or mass. SPLEEN: Mildly enlarged 13 cm. ADRENALS: Unremarkable. KIDNEYS: The kidneys appear within normal limits. No hydronephrosis or mass evident. Minimal perinephric fluid rim seen. STOMACH AND BOWEL: Limited evaluation of the stomach and bowel demonstrates no acute process. LYMPH NODES: No lymphadenopathy is evident. VASCULATURE: No abdominal aortic aneurysm. IMPRESSION: Study limited by patient motion. The common bile duct is mildly prominent (7.4 mm), likely post-cholecystectomy caliber, with no features of choledocholithiasis or biliary obstruction. Persistent diffuse pancreatic enlargement, mild peripancreatic fluid, and no definite organized collection consistent with interstitial edematous pancreatitis. Recommend follow-up contrast-enhanced CT or MRI in 4???6 weeks is to document complete resolution and to exclude evolving pancreatic necrosis or pseudocyst formation if clinically appropriate. Associated mild hepatomegaly, mild splenomegaly, and minimal bilateral pleural effusions. /[place] DICTATED BY: STEF BATEMAN MD DATE: 06/21/251946 ELECTRONICALLY SIGNED BY: STEF BATEMAN MD DATE: 06/21/251946 ASSESSMENT: Acute pancreatitis, POA Rule out necrotizing pancreatitis/pancreatic abscess, POA Leukocytosis, POA History of complicated pancreatitis with necrotizing pancreatitis with pseudo cyst in 2020 Status post cholecystectomy, POA History of Jardiance use as outpatient, POA Bilateral adrenal gland indeterminate nodules, POA ( right adrenal gland measuring 2 cm and left adrenal gland measuring 0.9 cm) History of hypertension, POA Hyperlipidemia, POA Type 2 diabetes mellitus, POA History of abdominal hernia repair with mesh, POA Diverticulosis, POA PLAN: Acute pancreatitis, POA * WBC trends -14.2>10.3>7.7>6.1, Lipase -16>14, amylase-43, Troponin-51, CRP- 96.5, TG-51, cholesterol-151, Total bilirubin-1.2 * CT abdomen was ordered results show - Grade E Acute Severe Pancreatitis With CTSI Score Of 8/10 [30- 50 PERCENT NECROSIS] with Fluid in the left anterior pararenal space. * Abdominal Ultrasound was done, results show Hepatomegaly (20.7 cm) with mild fatty infiltration, common bile duct measuring 5mm, Limited visualization of pancreas due to bowel gas artifact, Normal right kidney measuring with no calculus, hydronephrosis. * MRCP was done on 06/20/25, results show common bile duct is mildly prominent (7.4 mm), with no features of choledocholithiasis or biliary obstruction. Persistent diffuse pancreatic enlargement, mild peripancreatic fluid. Associated mild hepatomegaly, mild splenomegaly, and minimal bilateral pleural effusions. * General surgery was consulted, recommended no surgical intervention and cleared him for discharge, if he is tolerating oral feeds * GI was consulted, and recommended to do an EUS tomorrow in the morning * Infectious diseases was consulted, will follow their recommendations. * Endocrinology was consulted, will follow their recommendations. * Currently on Meropenem(day 5) * Jardiance was stopped, suspecting cause of pancreatitis. * For pain management he is on Dilaudid 0.5mg PRN, Toradol 15mg PRN, Tylenol 650mg PRN * H/O necrotizing pancreatitis, H/O cholecystectomy will monitor closely. * Will monitor with daily labs. Supportive measures: * GI prophylaxis Protonix * DVT prophylaxis with Lovenox ATTESTATION BY PHYSICIAN I have seen and examined the patient. I reviewed the documentation, medical decision making, and treatment plan as noted by the resident physician above. I agree with the findings and plan of care. Raad Reed IV, MD, SHAJI MD Jun 22, 2025 14:38
--- NOTE | 2025-06-22 18:25 | PN ---
INFECTIOUS DISEASE PROGRESS NOTE Date of Service: Jun 22, 2025 SUBJECTIVE: This is a 59-year-old male patient who was seen and examined at bedside in room 311. Patient is awake, alert and oriented x3. The MRCP was negative for choledocholithiasis or biliary obstruction. GI has recommended an endoscopic ultrasound. No fever, temperature is 97.7. No growth reported on the blood cultures. We will continue on Meropenem. PHYSICAL EXAM EYES: Anicteric. Pupils equal and reactive. HENT: No oral thrush seen, moist Oral mucosa. NECK: Supple, no JVD or thyromegaly. LUNGS: Good air entry. No rales, no rhonchi. CARDIOVASCULAR: S1, S2 regular. No murmur heard. ABDOMEN: Soft, non tender, bowel sounds present, no organomegaly. CENTRAL NERVOUS SYSTEM: Awake, alert, oriented x 3. SKIN: No rashes, no swelling. LYMPHATICS: No peripheral lymphadenopathy MUSCULOSKELETAL: No joint swelling, erythema or tenderness. EXTREMITIES: No cyanosis or clubbing. BACK: No deformity, no pressure ulcer. GENITOURINARY: No dysuria or hematuria. Vital Sign (Last 12 Hours) 06/22/25 06/22/25 06/22/25 06/22/25 07:46 08:34 12:00 12:27 Temp 97.7 97.9 Pulse 55 53 94 Resp 20 18 B/P (MAP) 141/80 152/82 138/95 Pulse Ox 94 94 96 O2 Delivery Room Air Room Air* Room Air O2 Flow Rate 0 FiO2 21 21 21 06/22/25 16:00 Temp 97.9 Pulse 56 Resp 18 B/P (MAP) 135/81 Pulse Ox 94 O2 Delivery Room Air FiO2 21 Intake & Output (last 24hrs) 06/21/25 06/21/25 06/22/25 15:00 23:00 07:00 Intake Total 491.0 ml Balance 491.0 ml LABS: Laboratory: Test 06/22/25 15:58 06/22/25 04:30 06/21/25 05:03 Range/Units Whole Blood Glucose 145 H 70-110 MG/DL White Blood Count 6.5 4.8-10.8 K/uL Red Blood Count 4.75 4.50-6.20 MIL/uL Hemoglobin 14.6 14.0-18.0 g/dL Hematocrit 43.0 42-54 % Mean Corpuscular Volume 90.5 79-99 fL Mean Corpuscular Hemoglobin 30.7 27.0-33.0 pg Mean Corpuscular Hemoglobin Concent 34.0 32.0-36.0 g/dL Red Cell Distribution Width 12.4 11.0-15.5 % Platelet Count 181 130-400 K/uL Mean Platelet Volume 10.2 7.5-10.5 fL Immature Granulocyte % (Auto) 0.5 0-1 % Neutrophils (%) (Auto) 59.6 40.0-77.0 % Lymphocytes (%) (Auto) 24.0 21.0-51.0 % Monocytes (%) (Auto) 11.0 3.0-13.0 % Eosinophils (%) (Auto) 4.1 0.0-8.0 % Basophils (%) (Auto) 0.8 0.0-5.0 % Neutrophils # (Auto) 3.9 1.8-7.7 K/uL Lymphocytes # (Auto) 1.6 1.0-4.8 K/uL Monocytes # (Auto) 0.7 0.1-1.0 K/uL Eosinophils # (Auto) 0.27 0.00-0.70 K/uL Basophils # (Auto) 0.05 0.00-0.20 K/uL Absolute Immature Granulocyte (auto 0.03 0-1 K/uL Nucleated Red Blood Cells 0.0 0.0-0.19 % Sodium Level 139 136-145 mmol/L Potassium Level 4.7 3.5-5.1 mmol/L Chloride Level 104 101-111 mmol/L Carbon Dioxide Level 31 21-32 mmol/L Blood Urea Nitrogen 8 7-18 mg/dL Creatinine 0.8 0.5-1.3 mg/dL Glomerular Filtration Rate Calc 101 >90 mL/min Random Glucose 111 H 70-105 mg/dL Total Calcium 8.7 8.5-10.1 mg/dL Total Bilirubin 0.9 0.2-1.0 mg/dL Aspartate Amino Transf (AST/SGOT) 23 10-37 U/L Alanine Aminotransferase (ALT/SGPT) 25 12-78 U/L Alkaline Phosphatase 67 50-136 U/L Total Protein 6.3 6.0-8.3 g/dL Albumin 2.7 L 3.5-5.0 g/dL ASSESSMENT: Acute on chronic pancreatitis. Choledocholithiasis and Biliary obstruction ruled out. Leukocytosis resolved. Diabetes mellitus. Abdominal pain, resolving. Obesity. PLAN: Continue Meropenem. Continue pain management. Continue IV fluids. We will follow up on the cultures results. Continue antidiabetics. GI following and recommending an EUS. This case was reviewed and discussed with my supervising physician Dr. Ceron and the above assessment and plan was formulated and agreed upon. ATTESTATION BY PHYSICIAN I have seen and examined the patient. I reviewed the documentation, medical decision making, and treatment plan as noted by the mid-level provider above. I agree with the findings and plan of care. PARIS CERON MD, [facility] Jun 22, 2025 18:25
--- NOTE | 2025-06-22 21:01 | PN ---
Endocrinology progress note DOS:06/22/25 subjective: Patient underwent a CT abdomen pelvis without IV contrast which showed findings of extensive peripancreatic edema with stranding with peripancreatic prominent lymph nodes in fluid tracking to the anterior left pararenal space. Patient was also found to have focus of gas and distal pancreas with necrotizing pancreatitis/pancreatic abscess which could not be ruled out. MRCP was unremarkable, endoscopic ultrasound is pending. 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, history of cholelithiasis and cholecystitis in 2019 PAST SURGICAL HISTORY: History of cholecystectomy in 2019, abdominal hernia repair with mesh couple of years ago PAST SOCIAL HISTORY: Denies any active smoking, alcohol consumption, denies any illicit drug use, patient is ambulatory at home and independent with ADLs and IADLs FAMILY HISTORY: Denies any family history of GI disorders of pancreatitis Allergies: Patient reports having to be allergic reaction to penicillin in childhood possibly anaphylaxis Home medications: Patient reports being on Tresiba 80 units in the morning, lisinopril 10 mg daily, Crestor, metformin, patient reports he mealtime insulin of Humalog 30 units Coded Allergies: Penicillins (Verified Allergy, Unknown, 07/28/20) DIAGNOSTICS / RADIOLOGY: Patient underwent CT abdomen pelvis without IV contrast in [facility] which showed findings of extensive peripancreatic edema and stranding with peripancreatic prominent lymph nodes and fluid tracking to the anterior left pararenal space. Focus of gas is seen in the distal pancreatic body. Impression: Acute pancreatitis. Focus of gas distal pancreas is indeterminate but suspicious. If not contraindicated, consider contrast syndrome and CT abdomen and pelvis to exclude pancreatic necrosis and abscess formation. Indeterminate adrenal gland nodules, patient noted to have indeterminate right adrenal 20 mm nodule in left adrenal 9 mm nodule. Colonic diverticulosis. ASSESSMENT: Acute pancreatitis, POA unclear etiology. s/p cholecystectomy, triglyceride is normal. denies alcohol use. off ozempic for 3 years. uncontrolled DM-2, POA Home diabetic regimen: tresiba 80 units daily, novolog 30 units qac before meals, jardiance 2 5 mg daily, actos 30 mg daily and metformin 1000 mg bid, Hba1c 7.1% glucose runs less than 180 mg/dl. I saw this patient recently in clinic in 03/2025 glucose are controlled. Rule out necrotizing pancreatitis/pancreatic abscess, POA MRCP was negative. Leukocytosis, POA History of complicated pancreatitis with necrotizing pancreatitis with pseudocyst in 2020 Status post cholecystectomy, POA History of Jardiance use as outpatient, POA Bilateral adrenal gland indeterminate nodules, POA ( right adrenal gland measuring 2 cm and left adrenal gland measuring 0.9 cm) History of hypertension, POA Hyperlipidemia, POA Type 2 diabetes mellitus, POA History of abdominal hernia repair with mesh, POA Diverticulosis, POA PLAN: start Lantus 15 units daily tomorrow if hyperglycemia otherwise hold insulin. start Regular insulin before meals if daytime hyperglycemia but npo now. Continue medium dose sliding scale insulin. Monitor glucose q x 6 hourly. Keep glucose less than 180 mg/dl. patient is npo now.. Vitals/Labs Vital Signs Date Time Temp Pulse Resp B/P (MAP) Pulse Ox O2 Delivery O2 Flow Rate FiO2 06/22/25 20:00 98.2 52 20 151/81 92 Room Air 06/22/25 16:00 21 06/22/25 08:34 0 Laboratory Tests 06/22/25 04:30 Medications Current Medications Thiamine HCl 100 mg Q24H IVP Last administered on 06/22/25at 18:18; Start 06/18/25 at 19:00; Stop 07/18/25 at 18:59 Sodium Chloride 1,000 ml @ 0 mls/hr ONCE ONCE IV Last administered on 06/18/25at 19:07; Start 06/18/25 at 19:00; Stop 06/18/25 at 19:01; Status DC Lactated Ringer's 1,000 ml @ 150 mls/hr Q6H40M IV Last administered on 06/19/25at 01:02; Start 06/18/25 at 19:00; Stop 06/19/25 at 11:44; Status DC Pantoprazole Sodium 40 mg DAILY IVP Last administered on 06/22/25at 08:34; Start 06/19/25 at 09:00; Stop 07/19/25 at 08:59 Acetaminophen 650 mg Q6H PRN PO; Start 06/18/25 at 19:00; Stop 07/18/25 at 18:59 Ondansetron HCl 4 mg Q6H PRN IVP Last administered on 06/19/25at 01:02; Start 06/18/25 at 19:00; Stop 07/18/25 at 18:59 Albuterol 1 udvial Q6H PRN IH; Start 06/18/25 at 19:00; Stop 07/18/25 at 18:59 Insulin Human Regular INSULIN SLIDING SCAL... ACHS SQ; Start 06/18/25 at 21:00; Stop 06/20/25 at 07:31; Status DC Potassium Chloride 100 ml @ 100 mls/hr AD PRN IV; Start 06/18/25 at 19:00; Stop 07/18/25 at 18:59 Potassium Chloride 20 meq AD PRN PO; Start 06/18/25 at 19:00; Stop 07/18/25 at 18:59 Potassium Chloride 20 meq AD PRN PO; Start 06/18/25 at 19:00; Stop 07/18/25 at 18:59 Magnesium Sulfate 50 ml @ 0 mls/hr PROTOCOL IV; Start 06/18/25 at 19:00; Stop 07/18/25 at 18:59 Hydralazine HCl 10 mg Q6H PRN IV; Start 06/18/25 at 19:00; Stop 07/18/25 at 18:59 Pharmacy Profile Note 1 each ONCE MISC; Start 06/18/25 at 19:30; Stop 06/18/25 at 19:11; Status DC Meropenem 1 gm Q8H IVPB Last administered on 06/22/25at 18:18; Start 06/18/25 at 19:30; Stop 06/28/25 at 19:29 Diphenhydramine HCl 25 mg Q6H PRN IV; Start 06/18/25 at 19:30; Stop 07/18/25 at 19:29 Dextrose 50 ml AD PRN IV; Start 06/18/25 at 20:00; Stop 07/18/25 at 19:59 Glucagon 1 mg AD PRN IM; Start 06/18/25 at 20:00; Stop 07/18/25 at 19:59 Hydromorphone HCl 0.5 mg Q6H PRN IVP Last administered on 06/19/25at 01:02; Start 06/18/25 at 20:30; Stop 06/23/25 at 20:29 Ketorolac Tromethamine 15 mg Q12H PRN IV; Start 06/18/25 at 20:30; Stop 06/21/25 at 20:30; Status DC Enoxaparin Sodium 40 mg DAILY SQ; Start 06/19/25 at 09:00; Stop 06/19/25 at 08:36; Status DC Iohexol 35,000 mg STK-MED ONCE IV; Start 06/19/25 at 06:17; Stop 06/19/25 at 06:17; Status DC Enoxaparin Sodium 40 mg HS SQ Last administered on 06/21/25at 22:09; Start 06/19/25 at 21:00; Stop 07/19/25 at 08:59 Aspirin 81 mg DAILY PO Last administered on 06/22/25at 08:34; Start 06/20/25 at 09:00; Stop 07/20/25 at 08:59 Lisinopril 10 mg DAILY PO Last administered on 06/22/25at 08:34; Start 06/20/25 at 09:00; Stop 07/20/25 at 08:59 Atorvastatin Calcium 20 mg HS PO Last administered on 06/22/25at 20:35; Start 06/19/25 at 21:00; Stop 07/19/25 at 20:59 Dextrose/Sodium Chloride 1,000 ml @ 80 mls/hr [id number] IV Last administered on 06/21/25at 08:57; Start 06/19/25 at 12:00; Stop 07/19/25 at 11:59 Insulin Human Regular INSULIN SLIDING SCAL... ACHS SQ; Start 06/20/25 at 07:30; Stop 07/20/25 at 07:29 Alprazolam 0.5 mg ONCE ONCE PO; Start 06/20/25 at 14:30; Stop 06/20/25 at 14:31; Status DC Alprazolam 0.5 mg ONCE PO Last administered on 06/20/25at 18:38; Start 06/20/25 at 19:00; Stop 06/20/25 at 23:59; Status DC JESSIE JALLOH MD Jun 22, 2025 21:01
[2025-06-23] VITALS (14 sets, daily range): BP systolic 120–150; BP diastolic 68–80; PULSE 47–53; RESP 15–20; TEMP 97.2–97.9; O2SAT 96
[2025-06-23 04:53] LABS: IMMATURE GRANULOCYTE ABSOLUTE 0.02 K/uL (0-1); NUCLEATED RED BLOOD CELLS 0.0 % (0.0-0.19); PLATELET COUNT (AUTO) 193 K/uL (130-400); RED BLOOD CELL COUNT(AUTO) 4.47 MIL/uL (4.50-6.20); RED CELL DISTRIBUTION WIDTH 12.4 % (11.0-15.5); WHITE BLOOD COUNT (AUTO) 6.5 K/uL (4.8-10.8)
[2025-06-23 05:01] LABS: CREATININE 0.6 mg/dL (0.5-1.3); GLOMERULAR FILTR. RATE CALC 111.0 mL/min (>90); GLUCOSE,RANDOM 146.0 mg/dL (70-105); SODIUM SERUM 138.0 mmol/L (136-145); UREA NITROGEN, BLOOD 9.0 mg/dL (7-18)
--- NOTE | 2025-06-23 12:13 | PN ---
GENERAL SURGERY PROGRESS NOTE Date/Time Patient Seen: [ ] Problem List: [ 59-year-old male with concerns of acute complicated pancreatitis ] Interval History: [ MRCP done on 06/20/2025 reported as common bile duct is mildly prominent (7.4 mm), likely post-cholecystectomy caliber, with no features of choledocholithiasis or biliary obstruction.Persistent diffuse pancreatic enlargement, mild peripancreatic fluid, and no definite organized collection consistent with interstitial edematous pancreatitis. Recommend follow-up contra st-enhanced CT or MRI in 4-6 weeks is to document complete resolution and to exclude evolving pancreatic necrosis or pseudocyst formation if clinically appropriate.Associated mild hepatomegaly, mild splenomegaly, and minimal bilateral pleural effusions. Patient has remained pain-free Patient continues on clear liquids, tolerating without any nausea, vomiting or abdominal pain WBCs 6.5 H&H 14.6 and 43.0 Bilirubin done yesterday was at 0.9 Lipase done on 06/20/2025 was normal at 14 ] Interval history: This 59-year-old male seen in his room resting Patient is able to undergo MRCP yesterday but currently pending results No abdominal pain reported Patient remains NPO patient on IV fluids Current Medications Medications (Trade) Dose Ordered Sig/Kilo Route Start Time Stop Time Status Last Admin Dose Admin Alprazolam (XANax 0.5MG) 0.5 mg ONCE PO 06/20/25 19:00 06/20/25 23:59 DC 06/20/25 18:38 0.5 MG Aspirin (Aspirin 81mg Ec Tab) 81 mg DAILY PO 06/20/25 09:00 07/20/25 08:59 06/22/25 08:34 81 MG Atorvastatin Calcium (LIPItor 20MG) 20 mg HS PO 06/19/25 21:00 07/19/25 20:59 06/22/25 20:35 20 MG Dextrose/Sodium Chloride 1,000 ml @ 80 mls/hr [id number] IV 06/19/25 12:00 07/19/25 11:59 06/23/25 12:03 80 MLS/HR Enoxaparin Sodium (Lovenox) 40 mg DAILY SQ 06/19/25 09:00 06/19/25 08:36 DC Enoxaparin Sodium (Lovenox) 40 mg HS SQ 06/19/25 21:00 07/19/25 08:59 06/21/25 22:09 40 MG Insulin Human Regular (humuLIN R 100 UNIT/ML 3ML) INSULIN SLIDING SCAL... ACHS SQ 06/18/25 21:00 06/20/25 07:31 DC Insulin Human Regular (humuLIN R 100 UNIT/ML 3ML) INSULIN SLIDING SCAL... ACHS SQ 06/20/25 07:30 07/20/25 07:29 Lactated Ringer's 1,000 ml @ 150 mls/hr Q6H40M IV 06/18/25 19:00 06/19/25 11:44 DC 06/19/25 01:02 150 MLS/HR Lisinopril (Prinivil 10mg) 10 mg DAILY PO 06/20/25 09:00 07/20/25 08:59 06/23/25 11:56 10 MG Magnesium Sulfate 50 ml @ 0 mls/hr PROTOCOL IV 06/18/25 19:00 07/18/25 18:59 Meropenem (Merrem 1gm) 1 gm Q8H IVPB 06/18/25 19:30 06/28/25 19:29 06/23/25 11:56 1 GM Pantoprazole Sodium (PROTonix 40MG INJ) 40 mg DAILY IVP 06/19/25 09:00 07/19/25 08:59 06/23/25 11:56 40 MG Pharmacy Profile Note (Pharmacy Communication) 1 each ONCE MISC 06/18/25 19:30 06/18/25 19:11 DC Thiamine HCl (Vitamin B-1) 100 mg Q24H IVP 06/18/25 19:00 07/18/25 18:59 06/22/25 18:18 100 MG Physical Examination: GENERAL: [No acute distress.] HEAD: [Normal with no signs of head trauma.] EYES: [PERRLA, EOMI, conjunctiva and sclera normal.] ENT: [Hearing grossly intact, normal oropharynx.] NECK: [Supple without JVD. There is no tenderness, lymphadenopathy, or masses. No thyromegaly. Normal carotid upstrokes without bruits.] LUNGS: [Clear breath sounds bilaterally. There are right basilar rales one third of the way up the chest. No wheezes, or rhonchi.] HEART: [Normal rate and rhythm. Normal S1 and S2 without mumurs, gallop or rub.] VASC: [Peripheral pulses +2 bilaterally.] ABD: [Bowel sounds normal, soft, nontender, no masses, no organomegaly. No audible bruits.] : [Not examined] LYMPH: [No lymphadenopathy noted.] EXT: [No clubbing, cyanosis or edema.] SKIN: [No rashes or lesions noted.] NEURO: [Awake, alert, and oriented x3. No focal sensory or strength deficits noted.] Vital Signs (last 8hr) Date Time Temp Pulse Resp B/P (MAP) Pulse Ox O2 Delivery O2 Flow Rate FiO2 06/23/25 10:10 97.2 53 17 136/79 97 Room Air 06/23/25 10:05 49 16 144/72 96 Room Air 06/23/25 10:00 50 15 145/72 96 Room Air 06/23/25 09:55 49 16 136/74 97 Room Air 06/23/25 09:50 51 16 141/72 100 Nasal Cannula 3.0 06/23/25 09:45 50 15 135/68 100 Nasal Cannula 3.0 06/23/25 09:40 97.3 50 16 132/70 100 Nasal Cannula 3.0 06/23/25 09:21 Mask 06/23/25 09:21 Mask 10.0 06/23/25 08:00 97.9 52 19 140/75 96 Room Air Laboratory: [ ] Hematology Labs: Test 06/23/25 04:30 Range/Units White Blood Count 6.5 4.8-10.8 K/uL Red Blood Count 4.47 L 4.50-6.20 MIL/uL Hemoglobin 14.0 14.0-18.0 g/dL Hematocrit 39.9 L 42-54 % Mean Corpuscular Volume 89.3 79-99 fL Mean Corpuscular Hemoglobin 31.3 27.0-33.0 pg Mean Corpuscular Hemoglobin Concent 35.1 32.0-36.0 g/dL Red Cell Distribution Width 12.4 11.0-15.5 % Platelet Count 193 130-400 K/uL Mean Platelet Volume 10.5 7.5-10.5 fL Immature Granulocyte % (Auto) 0.3 0-1 % Neutrophils (%) (Auto) 60.6 40.0-77.0 % Lymphocytes (%) (Auto) 23.9 21.0-51.0 % Monocytes (%) (Auto) 10.5 3.0-13.0 % Eosinophils (%) (Auto) 3.9 0.0-8.0 % Basophils (%) (Auto) 0.8 0.0-5.0 % Neutrophils # (Auto) 3.9 1.8-7.7 K/uL Lymphocytes # (Auto) 1.6 1.0-4.8 K/uL Monocytes # (Auto) 0.7 0.1-1.0 K/uL Eosinophils # (Auto) 0.25 0.00-0.70 K/uL Basophils # (Auto) 0.05 0.00-0.20 K/uL Absolute Immature Granulocyte (auto 0.02 0-1 K/uL Nucleated Red Blood Cells 0.0 0.0-0.19 % Chemistry Labs: Test 06/23/25 11:03 06/23/25 04:30 Range/Units Whole Blood Glucose 117 H 70-110 MG/DL Sodium Level 138 136-145 mmol/L Potassium Level 3.8 3.5-5.1 mmol/L Chloride Level 103 101-111 mmol/L Carbon Dioxide Level 30 21-32 mmol/L Blood Urea Nitrogen 9 7-18 mg/dL Creatinine 0.6 0.5-1.3 mg/dL Glomerular Filtration Rate Calc 111 >90 mL/min Random Glucose 146 H 70-105 mg/dL Total Calcium 8.2 L 8.5-10.1 mg/dL Diagnostics / Radiology: [Copy/Paste Echos/Imaging Report here] Impression and Plan: [Clinically, patient is doing significantly better, without any abdominal pain, nausea or vomiting MRCP without any choledocholithiasis or biliary obstructions We will advance diet today From surgical standpoint, patient may be discharged home if tolerating solid foods Office follow-up with Dr. Almanza in 2-3 weeks Surgical team will sign off this case for now Dr. Almanza updated on patient's status ] Surgical case has been discussed with my supervising physician in the above plan was formulated and agreed upon We appreciate the hospitalist team for us to participate in patient's care. Greater than 45 minutes of time spent patient, reviewing chart, working on documentation SIENNA MÉNDEZ Jun 23, 2025 12:13
--- NOTE | 2025-06-23 12:19 | PN ---
GASTROENTEROLOGY PROGRESS NOTE Date of Visit: Jun 23, 2025 Time of Visit: 12:13 Events / Notes: [Patient remains hemodynamically stable. WBC of 7.7, hemoglobin 13.8, platelets 153. Glucose 116, CRP trending down at 77.3, albumin 2.7, lipase at 14. total bilirubin now normal at 1.0. Ultrasound showing hepatomegaly with mild fatty infiltration. Status post cholecystectomy with common bile duct measuring 5 mm within normal limits for post cholecystectomy status. Limited visualization of pancreas due to bowel gas artifact no definite peripancreatic fluid or pseudocyst seen in the visualized region. Normal right kidney measuring 13.3 By 6.1 x 6.3 cm with no calculus, hydronephrosis, or for focal lesions. MRCP pending. Patient resting in chair. VSS. No c/o reported. He reports taking tejocote root from [place] for weight loss. Informed we will wait for MRCP results. He v/u. 06/21/25: No acute events overnight. Patient remains hemodynamically stable. Patient is tolerating fluids without any nausea or vomiting. Continues on mancilla toprazole 40 mg IV daily. He has not received any pain medicine in the past two days. MRCP pending. On exam, patient is sitting in bed in no acute distress. He reports he has not had anymore abdominal pain. Informed of pending MRCP results. He v/u. 06/22/25: Patient has remained hemodynamically stable and afebrile. WBC at 6.5, hemoglobin 14.6. LFTs and lipase are normal. MRCP results: The common bile duct is mildly prominent (7.4 mm), likely post- cholecystectomy caliber, with no features of choledocholithiasis or biliary obstruction. Persistent diffuse pancreatic enlargement, mild peripancreatic fluid, and no definite organized collection consistent with interstitial edematous pancreatitis. Recommend follow-up contrast-enhanced CT or MRI in 4???6 weeks is to document complete resolution and to exclude evolving pancreatic necrosis or pseudocyst formation if clinically appropriate. Associated mild hepatomegaly, mild splenomegaly, and minimal bilateral pleural effusions. MRCP results given to patient with recommendations for EUS. Gave patient option to have EUS tomorrow or as output. Patient agreed to proceed with EUS in am. 06/23/25: No acute events overnight. Patient's vital signs remained stable. Patient is awake, alert, and oriented x3 in no acute distress. Patient reports feeling well and denies having any pain. Information on EGD findings given to patient recommended patient follow-up at [facility] next week as scheduled. Patient verbalized understanding and agreement. ] Review of Systems: CONSTITUTIONAL: No malaise or change in sensation of wellbeing. ENMT: No rhinorrhea, otorrhea, sinus pain, ear ache. CARDIOVASCULAR: No angina, palpitations, orthopnea or paroxysmal dyspnea. RESPIRATORY: No SOB. GASTROINTESTINAL: No abdominal pain, nausea, vomiting, diarrhea, hematemesis, melena or change in the patient's habitual bowel movements consistency/number. GENITOURINARY: No dysuria, hematuria or change in bladder continence. MUSCULOSKELETAL: No new muscle pain or decrease in muscular strength. No new joint swelling, redness or tenderness. SKIN: No new rash. Physical Exam: GEN: Awake, alert, oriented in person, time and place, and in no acute distress. HEENT: No rhinorrhea. Oral mucosa is pink, moist and within normal limits. CHEST: Lung auscultation revealed normal breath sounds bilaterally. CARDIAC:Heart sounds are regular. ABD: Soft, non-tender and not distended. No peritoneal signs on palpation. Normal bowel sounds. EXT: No cyanosis or clubbing. No edema. SKIN: Intact. No rashes. NEURO: Alert and oriented to name, place and person.No focal motor deficits. Normal speech. Vital Signs (last 8hr) Date Time Temp Pulse Resp B/P (MAP) Pulse Ox O2 Delivery O2 Flow Rate FiO2 06/23/25 10:10 97.2 53 17 136/79 97 Room Air 06/23/25 10:05 49 16 144/72 96 Room Air 06/23/25 10:00 50 15 145/72 96 Room Air 06/23/25 09:55 49 16 136/74 97 Room Air 06/23/25 09:50 51 16 141/72 100 Nasal Cannula 3.0 06/23/25 09:45 50 15 135/68 100 Nasal Cannula 3.0 06/23/25 09:40 97.3 50 16 132/70 100 Nasal Cannula 3.0 06/23/25 09:21 Mask 06/23/25 09:21 Mask 10.0 06/23/25 08:00 97.9 52 19 140/75 96 Room Air Laboratory: [ ] Laboratory: Test 06/23/25 11:03 06/23/25 04:30 Range/Units Whole Blood Glucose 117 H 70-110 MG/DL White Blood Count 6.5 4.8-10.8 K/uL Red Blood Count 4.47 L 4.50-6.20 MIL/uL Hemoglobin 14.0 14.0-18.0 g/dL Hematocrit 39.9 L 42-54 % Mean Corpuscular Volume 89.3 79-99 fL Mean Corpuscular Hemoglobin 31.3 27.0-33.0 pg Mean Corpuscular Hemoglobin Concent 35.1 32.0-36.0 g/dL Red Cell Distribution Width 12.4 11.0-15.5 % Platelet Count 193 130-400 K/uL Mean Platelet Volume 10.5 7.5-10.5 fL Immature Granulocyte % (Auto) 0.3 0-1 % Neutrophils (%) (Auto) 60.6 40.0-77.0 % Lymphocytes (%) (Auto) 23.9 21.0-51.0 % Monocytes (%) (Auto) 10.5 3.0-13.0 % Eosinophils (%) (Auto) 3.9 0.0-8.0 % Basophils (%) (Auto) 0.8 0.0-5.0 % Neutrophils # (Auto) 3.9 1.8-7.7 K/uL Lymphocytes # (Auto) 1.6 1.0-4.8 K/uL Monocytes # (Auto) 0.7 0.1-1.0 K/uL Eosinophils # (Auto) 0.25 0.00-0.70 K/uL Basophils # (Auto) 0.05 0.00-0.20 K/uL Absolute Immature Granulocyte (auto 0.02 0-1 K/uL Nucleated Red Blood Cells 0.0 0.0-0.19 % Sodium Level 138 136-145 mmol/L Potassium Level 3.8 3.5-5.1 mmol/L Chloride Level 103 101-111 mmol/L Carbon Dioxide Level 30 21-32 mmol/L Blood Urea Nitrogen 9 7-18 mg/dL Creatinine 0.6 0.5-1.3 mg/dL Glomerular Filtration Rate Calc 111 >90 mL/min Random Glucose 146 H 70-105 mg/dL Total Calcium 8.2 L 8.5-10.1 mg/dL Current Medications Medications (Trade) Dose Ordered Sig/Kilo Route PRN Reason Start Time Stop Time Status Last Admin Dose Admin Acetaminophen (TYLenol 325MG TAB) 650 mg Q6H PRN PO MILD PAIN (1-3) 06/18/25 19:00 07/18/25 18:59 Albuterol (DUOneb) 1 udvial Q6H PRN IH SHORTNESS OF BREATH 06/18/25 19:00 07/18/25 18:59 Alprazolam (XANax 0.5MG) 0.5 mg ONCE PO 06/20/25 19:00 06/20/25 23:59 DC 06/20/25 18:38 0.5 MG Aspirin (Aspirin 81mg Ec Tab) 81 mg DAILY PO 06/20/25 09:00 07/20/25 08:59 06/22/25 08:34 81 MG Atorvastatin Calcium (LIPItor 20MG) 20 mg HS PO 06/19/25 21:00 07/19/25 20:59 06/22/25 20:35 20 MG Dextrose (D50w) 50 ml AD PRN IV HYPOGLYCEMIA PROTOCOL 06/18/25 20:00 07/18/25 19:59 Dextrose/Sodium Chloride 1,000 ml @ 80 mls/hr [id number] IV 06/19/25 12:00 07/19/25 11:59 06/23/25 12:03 80 MLS/HR Diphenhydramine HCl (BENAdryl INJ) 25 mg Q6H PRN IV ITCHING/ rash 06/18/25 19:30 07/18/25 19:29 Enoxaparin Sodium (Lovenox) 40 mg DAILY SQ 06/19/25 09:00 06/19/25 08:36 DC Enoxaparin Sodium (Lovenox) 40 mg HS SQ 06/19/25 21:00 07/19/25 08:59 06/21/25 22:09 40 MG Glucagon (Glucagon 1mg Kit) 1 mg AD PRN IM HYPOGLYCEMIA PROTOCOL 06/18/25 20:00 07/18/25 19:59 Hydralazine HCl (APRESOLine 20MG INJ) 10 mg Q6H PRN IV ADMINISTER FOR SBP > 170 06/18/25 19:00 07/18/25 18:59 Hydromorphone HCl (DiLAUDid 0.5MG INJ) 0.5 mg Q6H PRN IVP SEVERE PAIN (7-10) 06/18/25 20:30 06/23/25 20:29 06/19/25 01:02 0.5 MG Insulin Human Regular (humuLIN R 100 UNIT/ML 3ML) INSULIN SLIDING SCAL... ACHS SQ 06/18/25 21:00 06/20/25 07:31 DC Insulin Human Regular (humuLIN R 100 UNIT/ML 3ML) INSULIN SLIDING SCAL... ACHS SQ 06/20/25 07:30 07/20/25 07:29 Ketorolac Tromethamine (toRADol) 15 mg Q12H PRN IV MODERATE PAIN (4-6) 06/18/25 20:30 06/21/25 20:30 DC Lactated Ringer's 1,000 ml @ 150 mls/hr Q6H40M IV 06/18/25 19:00 06/19/25 11:44 DC 06/19/25 01:02 150 MLS/HR Lisinopril (Prinivil 10mg) 10 mg DAILY PO 06/20/25 09:00 07/20/25 08:59 06/23/25 11:56 10 MG Magnesium Sulfate 50 ml @ 0 mls/hr PROTOCOL IV 06/18/25 19:00 07/18/25 18:59 Meropenem (Merrem 1gm) 1 gm Q8H IVPB 06/18/25 19:30 06/28/25 19:29 06/23/25 11:56 1 GM Ondansetron HCl (zoFRAN 4MG INJ) 4 mg Q6H PRN IVP NAUSEA/VOMITING 06/18/25 19:00 07/18/25 18:59 06/19/25 01:02 4 MG Pantoprazole Sodium (PROTonix 40MG INJ) 40 mg DAILY IVP 06/19/25 09:00 07/19/25 08:59 06/23/25 11:56 40 MG Pharmacy Profile Note (Pharmacy Communication) 1 each ONCE MISC 06/18/25 19:30 06/18/25 19:11 DC Potassium Chloride 100 ml @ 100 mls/hr AD PRN IV POTASSIUM PROTOCOL 06/18/25 19:00 07/18/25 18:59 Potassium Chloride (K-Dur/Klor-Con 20meq) 20 meq AD PRN PO POTASSIUM PROTOCOL 06/18/25 19:00 07/18/25 18:59 Potassium Chloride (KCl 10% Elixir 20meq/15ml) 20 meq AD PRN PO POTASSIUM PROTOCOL 06/18/25 19:00 07/18/25 18:59 Thiamine HCl (Vitamin B-1) 100 mg Q24H IVP 06/18/25 19:00 07/18/25 18:59 06/22/25 18:18 100 MG Diagnostics / Radiology: [COPY/PASTE HERE IF NO REPORTS PLEASE DELETE SECTION] Assessment: [Abdominal pain Acute Pancreatitis Abnormal findings on MRCP imaging. Type 2 Diabetes Hypertension ] Possible causes to consider include alcohol, idiopathic, hypertriglyceridemia, medications, hypercalcemia, ERCP, celiac disease, autoimmune pancreatitis, vasculitis Plan: Case discussed Dr. Love 1. Advance diet ast tolerated 3. Continue with IV hydration 4. Supportive care with opioid analgesics (avoid NSAIDs) and antiemetics 5. Will sign off on patient care but will be available if needed. 6. Please call with questions, concerns, and change in clinical status. 7. Patient is scheduled to f/u at [facility] on 07/06/25 at 4:15pm. Thank you for allowing us to participate in the care of this patient! ] SIENNA MÉNDEZ Jun 23, 2025 12:19
--- NOTE | 2025-06-23 17:15 | DS ---
Discharge Summary Hospital Course Summary: A 59-year-old male with a history of obesity, type 2 diabetes mellitus (on Tresiba, prandial insulin, and outpatient Jardiance), hypertension, hyperlipidemia, prior necrotizing pancreatitis with pseudocyst (2020), cholecystectomy, abdominal hernia repair with mesh, and diverticulosis was transferred for further management of acute pancreatitis. He presented with [id number]-ii-zikhytay epigastric pain radiating to the back, nausea, and subjective chills, but was afebrile and hemodynamically stable on arrival. He denied significant alcohol use, hypertriglyceridemia, or familial pancreatitis. Initial labs showed leukocytosis (WBC 14.2, trending down to 6.1), mildly elevated CRP (peak 96.5), low lipase and amylase, and normal triglycerides and cholesterol. Imaging (CT abdomen/pelvis) revealed extensive peripancreatic edema, prominent lymph nodes, fluid tracking to the anterior left pararenal space, and a focus of gas in the distal pancreas concerning for necrotizing pancreatitis or pancreatic abscess. MRCP demonstrated a mildly prominent common bile duct (7.4 mm) without choledocholithiasis or biliary obstruction, persistent diffuse pancreatic enlargement, mild peripancreatic fluid, mild hepatomegaly, mild splenomegaly, and minimal bilateral pleural effusions. Abdominal ultrasound confirmed hepatomegaly with mild fatty infiltration and limited pancreatic visualization. Throughout hospitalization, the patient was closely monitored with daily assess ments. He initially reported abdominal discomfort but no pain, fever, chills, urinary symptoms, or bowel changes. He remained NPO for several days, with gradual improvement in symptoms and laboratory parameters. Serial evaluations by general surgery, gastroenterology, infectious diseases, and endocrinology were obtained. General surgery recommended no operative intervention and cleared the patient for discharge if tolerating oral feeds. Gastroenterology recommended endoscopic ultrasound (EUS) for further evaluation of pancreatic and biliary pathology which showed pancreatic parenchymal abnormalities consisting of atrophy, hypoechoic foci and lobularity were noted in the entire parenchyma and GI recommended to Repeat the endoscopic ultrasound in 3 weeks for surveillance and CT in 48 hours. Supportive management was prioritized, including goal- directed intravenous fluid resuscitation with Lactated Ringers solution, multimodal analgesia (Dilaudid, Toradol, Tylenol), GI prophylaxis (Protonix), and DVT prophylaxis (Lovenox). Early enteral nutrition was considered as symptoms improved. Jardiance was discontinued due to concern for drug-induced pancreatitis. Meropenem was initiated for possible infected necrosis. The patients course was notable for gradual clinical improvement, with resolution of abdominal discomfort, normalization of leukocytosis, and decreasing inflammatory markers. He remained afebrile and hemodynamically stable, with no evidence of organ dysfunction, persistent symptoms, or clinical deterioration. Additional findings included bilateral adrenal gland indeterminate nodules (right 2 cm, left 0.9 cm), which were noted for outpatient endocrinology follow- up. The patients comorbidities (hypertension, hyperlipidemia, diabetes) were managed per standard protocols, with close monitoring for glycemic control and renal function. Daily laboratory monitoring was continued, and the patient was advanced to oral nutrition as tolerated. Patient today was hemodynamically stable and being discharged with recommend ations to take a CT scan in 48 hours and Follow up with PCP after CT is done (3 days). Get a Repeat upper endoscopic ultrasound in 3 weeks for surveillance. Follow up with JOSEFINA Rivas on 07/06/25 at 4:15pm. Hold Jardiance, and follow up with Dr. Peter in 2 weeks. Avoid fatty food, spicy foods, monitor for signs of abdominal tenderness, nausea and vomiting and return to ED if you observe any of the signs mentioned above. Central Service Tech(s): General Surgery consult was done by Dr. Jaimes Assessment: This is a 59-year-old male with concerns of acute pancreatitis with a history cholecystectomy Plan: This point in time recommendation will be for MRCP to rule out any potentially retained stone within the common bile duct Repeat lipase tomorrow Patient to remain NPO No immediate surgical intervention at this time Continue with the IV fluids and IV antibiotics Endocrinology consult was done by Dr. Peter ASSESSMENT: Acute pancreatitis, POA unclear etiology. s/p cholecystectomy, triglyceride is normal. denies alcohol use. off ozempic for 3 years. uncontrolled DM-2, POA Home diabetic regimen: tresiba 80 units daily, novolog 30 units qac before meals, jardiance 2 5 mg daily, actos 30 mg daily and metformin 1000 mg bid, Hba1c 7.1% glucose runs less than 180 mg/dl. I saw this patient recently in clinic in 03/2025 Rule out necrotizing pancreatitis/pancreatic abscess, POA Leukocytosis, POA History of complicated pancreatitis with necrotizing pancreatitis with pseudocyst in 2020 Status post cholecystectomy, POA History of Jardiance use as outpatient, POA Bilateral adrenal gland indeterminate nodules, POA ( right adrenal gland measuring 2 cm and left adrenal gland measuring 0.9 cm) History of hypertension, POA Hyperlipidemia, POA Type 2 diabetes mellitus, POA History of abdominal hernia repair with mesh, POA Diverticulosis, POA PLAN: start Lantus 20 units daily and adjust for fasting glucose. start Regular insulin before meals if daytime hyperglycemia. Continue medium dose sliding scale insulin. Monitor glucose q x 6 hourly. Continue carb consistent diet. Keep glucose less than 180 mg/dl. patient is npo. Gastroenterology consult was done by Dr. Love Assessment: [Abdominal pain Acute Pancreatitis Type 2 Diabetes Hypertension ] Possible causes to consider include alcohol, idiopathic, hypertriglyceridemia, medications, hypercalcemia, ERCP, celiac disease, autoimmune pancreatitis, vasculitis Plan: Case discussed Dr. Love 1. NPO for MRI MRCP 2. Aggressive IV fluids lactated Ringer's 200-400 mL/hour for 12-24 hours to maintain adequate pancreatic perfusion and prevent ischemic necrosis 3. Supportive care with opioid analgesics (avoid NSAIDs) and antiemetics 4. Close patient monitoring of vital signs including O2 saturations, urine output, and electrolyte replacement 5. Resume oral intake within two days if the pain is decreasing and there is no ileus with a low fat, low residue diet. Advance as tolerated 6. Consider CT with IV contrast after 48 hours of aggressive IVF to assess for necrosis if the patient is not progressing. Seven. If oral diet is not tolerated, naso jejunal tube feeds are preferred overt TPN Infectious disease consult was done by Dr. Sanchez ASSESSMENT: A 59-year-old male who presents with abdominal pain. CURRENT PROBLEMS: Include: 1. Acute on chronic pancreatitis. 2. Abdominal pain. 3. Diabetes mellitus with hemoglobin A1c of 7.1. 4. Obesity. 5. Hypertension. PLAN: 1. Continue meropenem. 2. Continue thiamine. 3. Continue protonix. 4. Continue antiemetics. 5. Monitor electrolytes. 6. Continue DVT prophylaxis. 7. The patient will be followed up closely. Procedure(s): EUS was performed on 06/23/25 which showed pancreatic parenchymal abnormalities consisting of atrophy, hypoechoic foci and lobularity were noted in the entire parenchyma and GI recommended to Repeat the endoscopic ultrasound in 3 weeks for surveillance and CT in 48 hours. [place] [address] [address] IMAGING REPORT Signed PATIENT: JAH ALICIA MR#: [id number] : 1965 SEX: M AGE: 59 LOCATION: [facility] ORDER 56 STATUS: ADM IN REPORT#: [id number] SERVICE 54 REASON: Rule out choledocholithiasis ORDERING PHYSICIAN: CARSON ALICIA Jr. PAC PROCEDURE: MRCP WO - MRCP(ABDWO)CHOLANGIOPANCREATOG EXAM: MRCP/MR Abdomen Without IV contrast. CLINICAL HISTORY: Rule out choledocholithiasis TECHNIQUE: Multiplanar, multisequence MR imaging of the abdomen including MRCP sequences was performed without intravenous contrast administration. CONTRAST: None. COMPARISON: CT ABDOMEN/PELVIS W/CONTRAST Jun 19, 2025 US ABDOMINAL RUQ LTD Jun 19, 2025 FINDINGS: Study limited by patient motion. LOWER THORAX: Bilateral minimal pleural effusion. LIVER: Liver is mildly enlarged, measuring approximately 19 cm in craniocaudal dimension. No focal hepatic lesion. GALLBLADDER AND BILE DUCTS: Status post cholecystectomy. No intrahepatic or extrahepatic biliary ductal dilatation. The common bile duct measures 7.4 mm, within upper limits of normal for post-cholecystectomy status. No intraluminal calculus or filling defect identified. PANCREAS: The pancreas is diffusely enlarged with heterogeneous T2 signal intensity and irregular margins, predominantly involving the head and body. Minimal peripancreatic fluid and inflammatory stranding are present. No definite non-enhancing walled-off collections are seen. The main pancreatic duct is mildly prominent, measuring approximately 5 mm, with no obstructing stone or mass. SPLEEN: Mildly enlarged 13 cm. ADRENALS: Unremarkable. KIDNEYS: The kidneys appear within normal limits. No hydronephrosis or mass evident. Minimal perinephric fluid rim seen. STOMACH AND BOWEL: Limited evaluation of the stomach and bowel demonstrates no acute process. LYMPH NODES: No lymphadenopathy is evident. VASCULATURE: No abdominal aortic aneurysm. IMPRESSION: Study limited by patient motion. The common bile duct is mildly prominent (7.4 mm), likely post-cholecystectomy caliber, with no features of choledocholithiasis or biliary obstruction. Persistent diffuse pancreatic enlargement, mild peripancreatic fluid, and no definite organized collection consistent with interstitial edematous pancreatitis. Recommend follow-up contrast-enhanced CT or MRI in 4???6 weeks is to document complete resolution and to exclude evolving pancreatic necrosis or pseudocyst formation if clinically appropriate. Associated mild hepatomegaly, mild splenomegaly, and minimal bilateral pleural effusions. /[place] DICTATED BY: STEF BATEMAN MD DATE: 06/21/251946 ELECTRONICALLY SIGNED BY: STEF BATEMAN MD DATE: 06/21/251946 [facility] [address] [place] [address] IMAGING REPORT Signed PATIENT: JAH ALICIA MR#: [id number] : 1965 SEX: M AGE: 59 LOCATION: [facility] ORDER 1019 STATUS: ADM IN REPORT#: [id number] SERVICE 1016 REASON: RUQ pain, acute pancreatitis ORDERING PHYSICIAN: KARIN GUZMAN MD PROCEDURE: ABDRUQLTD - US ABDOMINAL RUQ\LTD EXAM: Ultrasound Abdomen, Right Upper Quadrant CLINICAL HISTORY: Right upper quadrant pain, history of acute pancreatitis. TECHNIQUE: Real-time right upper quadrant sonography performed with grayscale and color Doppler imaging. COMPARISON: CT Abdomen and Pelvis with Contrast ??? 06/19/25, 06:19 EDT FINDINGS: LIVER: Liver measures 20.7 cm in craniocaudal dimension. Parenchymal echogenicity is mildly increased, consistent with fatty infiltration. No focal hepatic lesion or intrahepatic biliary dilatation seen. GALLBLADDER: Status post cholecystectomy (gallbladder surgically removed). COMMON BILE DUCT: Common bile duct measures 5 mm in diameter, within normal limits for post-cholecystectomy status. No intraductal calculus or obstruction identified. PANCREAS: Visualized portions appear obscured by overlying bowel gas, limiting detailed assessment. No definite peripancreatic fluid or pseudocyst seen in the visualized region. RIGHT KIDNEY: Right kidney measures 13.3 ??? 6.1 ??? 6.3 cm. Normal renal cortical thickness and echogenicity. No calculus, hydronephrosis, or focal lesion identified. COMMENTS: Portions of the pancreas are obscured by bowel gas artifact, limiting full evaluation. IMPRESSION: 1. Hepatomegaly (liver measures 20.7 cm in craniocaudal dimension) with mild fatty infiltration. 2. Status post cholecystectomy with common bile duct measuring 5 mm, within normal limits for post-cholecystectomy status. 3. Limited visualization of pancreas due to bowel gas artifact; no definite peripancreatic fluid or pseudocyst seen in the visualized region. 4. Normal right kidney measuring 13.3 ??? 6.1 ??? 6.3 cm, with no calculus, hydronephrosis, or focal lesion identified. /[place] DICTATED BY: TITA HUTTON MD DATE: 06/19/252254 ELECTRONICALLY SIGNED BY: TITA HUTTON MD DATE: 06/19/252254 [place] [address] IMAGING REPORT Addendum PATIENT: AJH ALICIA MR#: [id number] : 1965 SEX: M AGE: 59 LOCATION: [facility] ORDER 230 STATUS: ADM IN REPORT#: [id number] SERVICE 0600 REASON: acute pancreatitis, r/o necrotizing pancreatitis/abscess, pancreas protocol ORDERING PHYSICIAN: ROSETTE GUZMAN MD PROCEDURE: ABD PEL W - CT ABDOMEN/PELVIS W/CONTRAST ADDENDUM REPORT ADDENDUM: Results were shared by telephone at 13:59 pm on 06-19-25 and acknowledged by Rosette Bond /[place] Abdomen and Pelvis CT with contrast Comparison: None Indication:acute pancreatitis, r/o necrotizing pancreatitis/abscess, pancreas protocol Technique: 5 mm thick axial images were obtained through the abdomen and pelvis before and after the administration of 150ml of intravenous contrast . 1.25 mm thick axial images as well as coronal and sagittal reformatted images were also submitted for interpretation. Findings: The visualized portions of the lungs are normal in appearance. The visualized portion of the heart is normal in size without pericardial effusion. The abdominal aorta demonstrates no evidence of focal aneurysmal dilitation or dissection. Post cholecystectomy status of gall bladder . Intrapancreatic - diffuse enlargement with edema. Peripancreatic / extrapancreatic - irregular pancreatic outline, obliterated peripancreatic fat, retroperitoneal edema, fluid in the lesser sac, fluid in the left anterior pararenal space Thickening of inflamed Gerota's fascia, which becomes visible with pancreatic ascites, pleural effusion (seen on basal cuts of the pleural cavity). The liver is normal in size without focal hepatic lesions. No intrahepatic ductal dilatation is seen. The hepatic and portal veins are patent. The common bile duct, spleen, adrenals and kidneys are normal in appearance. No hydronephrosis or radio-opaque calculi are visualized. The urinary bladder is within normal limits. Mild prostatomegaly noted . The colon is normal in appearance and without wall thickening or inflammatory change. No intraperitoneal free air or fluid is visualized. No pathologic lymphadenopathy is seen. There are no osseous or soft tissue abnormalities. Impression: GRADE E ACUTE SEVERE PANCREATITIS WITH A CTSI SCORE OF 8/10 [30- 50 PERCENT NECROSIS} /[place] DICTATED BY: STEF BATEMAN MD DATE: 06/19/25 1404 ELECTRONICALLY SIGNED BY: DATE: Abdomen and Pelvis CT with contrast Comparison: None Indication:acute pancreatitis, r/o necrotizing pancreatitis/abscess, pancreas protocol Technique: 5 mm thick axial images were obtained through the abdomen and pelvis before and after the administration of 150ml of intravenous contrast . 1.25 mm thick axial images as well as coronal and sagittal reformatted images were also submitted for interpretation. Findings: The visualized portions of the lungs are normal in appearance. The visualized portion of the heart is normal in size without pericardial effusion. The abdominal aorta demonstrates no evidence of focal aneurysmal dilitation or dissection. Post cholecystectomy status of gall bladder . Intrapancreatic - diffuse enlargement with edema. Peripancreatic / extrapancreatic - irregular pancreatic outline, obliterated peripancreatic fat, retroperitoneal edema, fluid in the lesser sac, fluid in the left anterior pararenal space Thickening of inflamed Gerota's fascia, which becomes visible with pancreatic ascites, pleural effusion (seen on basal cuts of the pleural cavity). The liver is normal in size without focal hepatic lesions. No intrahepatic ductal dilatation is seen. The hepatic and portal veins are patent. The common bile duct, spleen, adrenals and kidneys are normal in appearance. No hydronephrosis or radio-opaque calculi are visualized. The urinary bladder is within normal limits. Mild prostatomegaly noted . The colon is normal in appearance and without wall thickening or inflammatory change. No intraperitoneal free air or fluid is visualized. No pathologic lymphadenopathy is seen. There are no osseous or soft tissue abnormalities. Impression: GRADE E ACUTE SEVERE PANCREATITIS WITH A CTSI SCORE OF 8/10 [30- 50 PERCENT NECROSIS} /[place] DICTATED BY: STEF BATEMAN MD DATE: 06/19/251343 ELECTRONICALLY SIGNED BY: STEF BATEMAN MD DATE: 06/19/251343 Assessment/Plan: ASSESSMENT: Acute pancreatitis, POA Rule out necrotizing pancreatitis/pancreatic abscess, POA Leukocytosis, POA History of complicated pancreatitis with necrotizing pancreatitis with pseudocyst in 2020 Status post cholecystectomy, POA History of Jardiance use as outpatient, POA Bilateral adrenal gland indeterminate nodules, POA ( right adrenal gland measuring 2 cm and left adrenal gland measuring 0.9 cm) History of hypertension, POA Hyperlipidemia, POA Type 2 diabetes mellitus, POA History of abdominal hernia repair with mesh, POA Diverticulosis, POA Discharge Instructions: CT scan in 48 hours. Follow up with PCP after CT is done (3 days). Repeat upper endoscopic ultrasound in 3 weeks for surveillance Follow up with JOSEFINA Rivas on 07/06/25 at 4:15pm. Hold Jardiance, Follow up with Dr. Peter in 2 weeks. Avoid fatty food, spicy foods, monitor for signs of abdominal tenderness, nausea and vomiting and return to ED if you observe any of the signs mentioned above. Home Medications: Active Scripts Cyclobenzaprine HCl (Cyclobenzaprine HCl) 5 Mg Tablet, 5 MG PO Q8H for 10 Days, #30 TAB Prov:ANGELI LEON I TIRE MOUNTER 10/02/20 Reported Medications Insulin Aspart (Novolog) 100 Unit/Ml Cartridge, 30 UNITS SQ TIDAC, CARTRIDGE 06/18/25 Insulin Degludec (Tresiba Flextouch U-200) 200 Unit/Ml (3 Ml) Insuln.pen, 80 UNIT SQ AM, SYRINGE 06/18/25 Metformin HCl (Metformin HCl ER) 500 Mg Tab.er.24h, 2 TAB PO BID for 30 Days, #120 TAB 0 Refills 06/18/25 Aspirin (Aspirin EC) 81 Mg Tablet.dr, 81 MG PO DAILY, TAB 06/18/25 Empagliflozin (Jardiance) 25 Mg Tablet, 25 MG PO DAILY, TAB 06/18/25 Lisinopril (Lisinopril) 10 Mg Tablet, 10 MG PO DAILY, TAB 06/18/25 Pioglitazone HCl (Pioglitazone HCl) 30 Mg Tablet, 30 MG PO DAILY, TAB 06/18/25 Rosuvastatin Calcium (Rosuvastatin Calcium) 10 Mg Tablet, 10 MG PO DAILY, TAB 06/18/25 Apixaban (Eliquis) 5 Mg Tablet, 5 MG PO BID, TAB 09/28/20 Insulin Glargine,Hum.rec.anlog (Lantus) 100 Units/Ml Inj, 25 UNITS SQ AM, ML 09/28/20 Continued Medications: Aspirin (Aspirin EC) 81 Mg Tablet.dr 81 MG PO DAILY, TAB Insulin Aspart (Novolog) 100 Unit/Ml Cartridge 30 UNITS SQ TIDAC, CARTRIDGE Insulin Degludec (Tresiba Flextouch U-200) 200 Unit/Ml (3 Ml) Insuln.pen 80 UNIT SQ AM, SYRINGE Lisinopril (Lisinopril) 10 Mg Tablet 10 MG PO DAILY, TAB Metformin HCl (Metformin HCl ER) 500 Mg Tab.er.24h 2 TAB PO BID for 30 Days, #120 TAB 0 Refills Pioglitazone HCl (Pioglitazone HCl) 30 Mg Tablet 30 MG PO DAILY, TAB Rosuvastatin Calcium (Rosuvastatin Calcium) 10 Mg Tablet 10 MG PO DAILY, TAB Discontinued Medications: Apixaban (Eliquis) 5 Mg Tablet 5 MG PO BID, TAB Cyclobenzaprine HCl (Cyclobenzaprine HCl) 5 Mg Tablet 5 MG PO Q8H for 10 Days, #30 TAB Empagliflozin (Jardiance) 25 Mg Tablet 25 MG PO DAILY, TAB Insulin Glargine,Hum.rec.anlog (Lantus) 100 Units/Ml Inj 25 UNITS SQ AM, ML Time spent arranging discharge: 31-60 minutes ATTESTATION BY PHYSICIAN I have seen and examined the patient. I reviewed the documentation, medical decision making, and treatment plan as noted by the resident provider above. I agree with the findings and plan of care. Santana Huston MD, SHAJI MD Jun 23, 2025 17:15
--- NOTE | 2025-06-23 18:04 | NUR ---
DISCHARGE PT PIV DC'D PT VERBALIZED UNDERSTANDING OF DISCHARGE INSTRUCTIONS PT HAD NO FURTHER QUESTIONS AT TIME OF DISCHARGE PT GATHERED AND TOOK ALL BELONGINGS
--- NOTE | 2025-06-23 22:10 | PN ---
Endocrinology progress note DOS:06/23/25 subjective: Patient underwent a CT abdomen pelvis without IV contrast which showed findings of extensive peripancreatic edema with stranding with peripancreatic prominent lymph nodes in fluid tracking to the anterior left pararenal space. Patient was also found to have focus of gas and distal pancreas with necrotizing pancreatitis/pancreatic abscess which could not be ruled out. MRCP was unremarkable, endoscopic ultrasound is pending. 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, history of cholelithiasis and cholecystitis in 2019 PAST SURGICAL HISTORY: History of cholecystectomy in 2019, abdominal hernia repair with mesh couple of years ago PAST SOCIAL HISTORY: Denies any active smoking, alcohol consumption, denies any illicit drug use, patient is ambulatory at home and independent with ADLs and IADLs FAMILY HISTORY: Denies any family history of GI disorders of pancreatitis Allergies: Patient reports having to be allergic reaction to penicillin in childhood possibly anaphylaxis Home medications: Patient reports being on Tresiba 80 units in the morning, lisinopril 10 mg daily, Crestor, metformin, patient reports he mealtime insulin of Humalog 30 units Coded Allergies: Penicillins (Verified Allergy, Unknown, 07/28/20) DIAGNOSTICS / RADIOLOGY: Patient underwent CT abdomen pelvis without IV contrast in [facility] which showed findings of extensive peripancreatic edema and stranding with peripancreatic prominent lymph nodes and fluid tracking to the anterior left pararenal space. Focus of gas is seen in the distal pancreatic body. Impression: Acute pancreatitis. Focus of gas distal pancreas is indeterminate but suspicious. If not contraindicated, consider contrast syndrome and CT abdomen and pelvis to exclude pancreatic necrosis and abscess formation. Indeterminate adrenal gland nodules, patient noted to have indeterminate right adrenal 20 mm nodule in left adrenal 9 mm nodule. Colonic diverticulosis. ASSESSMENT: Acute pancreatitis, POA unclear etiology. s/p cholecystectomy, triglyceride is normal. denies alcohol use. off ozempic for 3 years. uncontrolled DM-2, POA Home diabetic regimen: tresiba 80 units daily, novolog 30 units qac before meals, jardiance 2 5 mg daily, actos 30 mg daily and metformin 1000 mg bid, Hba1c 7.1% glucose runs less than 180 mg/dl. I saw this patient recently in clinic in 03/2025 glucose are controlled. Rule out necrotizing pancreatitis/pancreatic abscess, POA MRCP was negative. Leukocytosis, POA History of complicated pancreatitis with necrotizing pancreatitis with pseudocyst in 2020 Status post cholecystectomy, POA History of Jardiance use as outpatient, POA Bilateral adrenal gland indeterminate nodules, POA ( right adrenal gland measuring 2 cm and left adrenal gland measuring 0.9 cm) History of hypertension, POA Hyperlipidemia, POA Type 2 diabetes mellitus, POA History of abdominal hernia repair with mesh, POA Diverticulosis, POA PLAN: start Lantus 15 units daily tomorrow if hyperglycemia otherwise hold insulin. start Regular insulin before meals if daytime hyperglycemia but npo now. Continue medium dose sliding scale insulin. Monitor glucose q x 6 hourly. Keep glucose less than 180 mg/dl. Vitals/Labs Vital Signs Date Time Temp Pulse Resp B/P (MAP) Pulse Ox O2 Delivery O2 Flow Rate FiO2 06/23/25 11:00 47 150/72 94 Room Air 06/23/25 10:15 18 06/23/25 10:10 97.2 06/23/25 09:50 3.0 06/23/25 08:00 21 Laboratory Tests 06/23/25 04:30 Medications Current Medications Thiamine HCl 100 mg Q24H IVP Last administered on 06/22/25at 18:18; Start 06/18/25 at 19:00; Stop 06/23/25 at 18:38; Status DC Sodium Chloride 1,000 ml @ 0 mls/hr ONCE ONCE IV Last administered on 06/18/25at 19:07; Start 06/18/25 at 19:00; Stop 06/18/25 at 19:01; Status DC Lactated Ringer's 1,000 ml @ 150 mls/hr [id number] IV Last administered on 06/19/25at 01:02; Start 06/18/25 at 19:00; Stop 06/19/25 at 11:44; Status DC Pantoprazole Sodium 40 mg DAILY IVP Last administered on 06/23/25at 11:56; Start 06/19/25 at 09:00; Stop 06/23/25 at 18:38; Status DC Acetaminophen 650 mg Q6H PRN PO; Start 06/18/25 at 19:00; Stop 06/23/25 at 18:38; Status DC Ondansetron HCl 4 mg Q6H PRN IVP Last administered on 06/19/25at 01:02; Start 06/18/25 at 19:00; Stop 06/23/25 at 18:38; Status DC Albuterol 1 udvial Q6H PRN IH; Start 06/18/25 at 19:00; Stop 06/23/25 at 18:38; Status DC Insulin Human Regular INSULIN SLIDING SCAL... ACHS SQ; Start 06/18/25 at 21:00; Stop 06/20/25 at 07:31; Status DC Potassium Chloride 100 ml @ 100 mls/hr AD PRN IV; Start 06/18/25 at 19:00; Stop 06/23/25 at 18:38; Status DC Potassium Chloride 20 meq AD PRN PO; Start 06/18/25 at 19:00; Stop 06/23/25 at 18:38; Status DC Potassium Chloride 20 meq AD PRN PO; Start 06/18/25 at 19:00; Stop 06/23/25 at 18:38; Status DC Magnesium Sulfate 50 ml @ 0 mls/hr PROTOCOL IV; Start 06/18/25 at 19:00; Stop 06/23/25 at 18:38; Status DC Hydralazine HCl 10 mg Q6H PRN IV; Start 06/18/25 at 19:00; Stop 06/23/25 at 18:38; Status DC Pharmacy Profile Note 1 each ONCE MISC; Start 06/18/25 at 19:30; Stop 06/18/25 at 19:11; Status DC Meropenem 1 gm Q8H IVPB Last administered on 06/23/25at 11:56; Start 06/18/25 at 19:30; Stop 06/23/25 at 18:38; Status DC Diphenhydramine HCl 25 mg Q6H PRN IV; Start 06/18/25 at 19:30; Stop 06/23/25 at 18:38; Status DC Dextrose 50 ml AD PRN IV; Start 06/18/25 at 20:00; Stop 06/23/25 at 18:38; Status DC Glucagon 1 mg AD PRN IM; Start 06/18/25 at 20:00; Stop 06/23/25 at 18:38; Status DC Hydromorphone HCl 0.5 mg Q6H PRN IVP Last administered on 06/19/25at 01:02; Start 06/18/25 at 20:30; Stop 06/23/25 at 18:38; Status DC Ketorolac Tromethamine 15 mg Q12H PRN IV; Start 06/18/25 at 20:30; Stop 06/21/25 at 20:30; Status DC Enoxaparin Sodium 40 mg DAILY SQ; Start 06/19/25 at 09:00; Stop 06/19/25 at 08:36; Status DC Iohexol 35,000 mg STK-MED ONCE IV; Start 06/19/25 at 06:17; Stop 06/19/25 at 06:17; Status DC Enoxaparin Sodium 40 mg HS SQ Last administered on 06/21/25at 22:09; Start 06/19/25 at 21:00; Stop 06/23/25 at 18:38; Status DC Aspirin 81 mg DAILY PO Last administered on 06/22/25at 08:34; Start 06/20/25 at 09:00; Stop 06/23/25 at 18:38; Status DC Lisinopril 10 mg DAILY PO Last administered on 06/23/25at 11:56; Start 06/20/25 at 09:00; Stop 06/23/25 at 18:38; Status DC Atorvastatin Calcium 20 mg HS PO Last administered on 06/22/25at 20:35; Start 06/19/25 at 21:00; Stop 06/23/25 at 18:38; Status DC Dextrose/Sodium Chloride 1,000 ml @ 80 mls/hr [id number] IV Last administered on 06/23/25at 12:03; Start 06/19/25 at 12:00; Stop 06/23/25 at 18:38; Status DC Insulin Human Regular INSULIN SLIDING SCAL... ACHS SQ; Start 06/20/25 at 07:30; Stop 06/23/25 at 18:38; Status DC Alprazolam 0.5 mg ONCE ONCE PO; Start 06/20/25 at 14:30; Stop 06/20/25 at 14:31; Status DC Alprazolam 0.5 mg ONCE PO Last administered on 06/20/25at 18:38; Start 06/20/25 at 19:00; Stop 06/20/25 at 23:59; Status DC Propofol 200 mg STK-MED ONCE IV; Start 06/23/25 at 09:20; Stop 06/23/25 at 09:21; Status DC Propofol 200 mg STK-MED ONCE IV; Start 06/23/25 at 09:20; Stop 06/23/25 at 09:21; Status DC JESSIE JALLOH MD Jun 23, 2025 22:10
--- NOTE | 2025-06-23 23:02 | PN ---
INFECTIOUS DISEASE FOLLOWUP NOTE SUBJECTIVE: The patient is seen and examined at bedside today. Denies fevers, chills. No bleeding tendencies. No . No palpitations or orthopnea. No . A scrotal ultrasound has been done today which came back with no abnormality. PHYSICAL EXAMINATION: VITAL SIGNS: Temperature 97.5. EYES: No icterus. Pupils equal and reactive. HENT: No oral thrush seen. Moist oral mucosa. NECK: Supple. No JVD or thyromegaly. LUNGS: Good air entry. No rales. No rhonchi. CARDIOVASCULAR: S1, S2 heard. No murmur heard. ABDOMEN: Full, soft, nontender. Bowel sounds heard. CENTRAL NERVOUS SYSTEM: Awake, alert, oriented x 3. No focal deficits. SKIN: No rashes. LYMPHATIC: No peripheral lymphadenopathy. BACK: No deformity or pressure ulcer. MUSCULOSKELETAL: No joint swelling, erythema or tenderness. RADIOLOGY: ASSESSMENT: A 59-year-old male who presents with abdominal pain. 1. Acute on chronic pancreatitis. 2. Abdominal pain. 3. Diabetes mellitus with A1c of 7.1. 4. Obesity. 5. Hypertension. PLAN: 1. Continue . 2. Continue nutritional support. 3. Continue antihypertensive. 4. Continue 5. Continue 6. No antibiotic needed upon discharge. TID: [id number] RECEIPT: [id number]
== END 2025-06-23 18:20 | disposition home or self-care (01) | DRG 440 ==
LOC: 3BH 18:16
PROVIDERS: ADMIT Internal Medicine; ATTEND Internal Medicine
PROC: 0DJ08ZZ Inspection of Upper Intestinal Tract, Via Natural or Artificial Opening Endoscopic (ICD-10-PCS; principal; 2025-06-23)
DX: K85.91 Acute pancreatitis with uninfected necrosis, unspecified (principal); K57.30 Diverticulosis of large intestine without perforation or abscess without bleeding; I10 Essential (primary) hypertension; E78.5 Hyperlipidemia, unspecified; K86.1 Other chronic pancreatitis; K31.89 Other diseases of stomach and duodenum; E11.65 Type 2 diabetes mellitus with hyperglycemia; K86.9 Disease of pancreas, unspecified; E66.9 Obesity, unspecified; K76.0 Fatty (change of) liver, not elsewhere classified; Z79.4 Long term (current) use of insulin; Z79.84 Long term (current) use of oral hypoglycemic drugs; Z83.3 Family history of diabetes mellitus; Z87.19 Personal history of other diseases of the digestive system; Z88.0 Allergy status to penicillin; Z90.49 Acquired absence of other specified parts of digestive tract; Z68.34 Body mass index [BMI] 34.0-34.9, adult
CPT/HCPCS: 36415; 43237; 74177; 74181; 76705; 80048; 80053; 80061; 82150; 82550; 82948; 83036; 83615; 83690; 83735; 84145; 84443; 84484; 85025; 85027; 85651; 86140; 86850; 86900; 86901; 87040; 93005; A4606; G0378; J1171; J1650; J2185; J2405; J2470; J2704; J3411; J7030; J7070; Q9967; A4215; A4222; A4223; A4620; J3490